=== PATIENT | female | born 1935 ===

== ENCOUNTER 2016-09-06 00:12 | Inpatient (IN) | payer MEDICARE, MEDICAID ==
[2016-09-06 00:13] VITALS: BMI 24.5
[2016-09-06] MEDS ORDERED: Iohexol 240 (50 ml) PO ONE (00:41)
--- NOTE | 2016-09-06 00:50 | ED PDOC ---
HPI: General Adult Time Seen by Provider: 09/06/16 00:30 Chief Complaint (Nursing): Hip Pain Chief Complaint (Provider): LLQ pain History Per: Patient Additional Complaint(s): pt c/o LLQ pain since last night w/ associated diarrhea. no fever, cp, sob, abd pain, n/v, constipation, urinary c/o. Past Medical History Reviewed: Historical Data, Nursing Documentation, Vital Signs Vital Signs: Last Vital Signs Temp 98.2 F 09/06/16 00:17 Pulse 94 H 09/06/16 00:17 Resp 17 09/06/16 00:17 BP 155/68 H 09/06/16 00:17 Pulse Ox 98 09/06/16 00:54 - Medical History PMH: Anxiety, HTN, Hypercholesterolemia - Surgical History Surgical History: Tonsillectomy Other surgeries: lumpectomy, hysterectomy w/ oophorectomy - Family History Family History: States: No Known Family Hx - Social History Current smoker - smoking cessation education provided: No Alcohol: None Drugs: Denies - Home Medications Home Medications: Ambulatory Orders Medication Instructions Recorded Clonazepam 0.5 mg PO BID 05/22/14 Enalapril Maleate [Vasotec] 10 mg PO DAILY 05/22/14 Ibuprofen 600 mg PO Q6H PRN 05/22/14 Letrozole 2.5 mg PO DAILY 05/22/14 Metformin ER [Glucophage XR] 500 mg PO BID 05/22/14 Aaxod-7-Mwss Ethyl Esters [OMEGA 3] 1,000 mg PO BID 05/22/14 Acetaminophen with Codeine 1 tab PO Q4 PRN 06/03/14 [Tylenol with Codeine No. 3 300 mg-30 mg] - Allergies Allergies/Adverse Reactions: Allergies Allergy/AdvReac Type Severity Reaction Status Date / Time No Known Allergies Allergy Verified 05/25/14 15:13 Review of Systems ROS Statement: Except As Marked, All Systems Reviewed And Found Negative Gastrointestinal: Positive for: Abdominal Pain, Diarrhea Physical Exam - Reviewed Nursing Documentation Reviewed: Yes - Physical Exam Appears: Positive for: Well, Non-toxic, No Acute Distress Head Exam: Positive for: ATRAUMATIC, NORMAL INSPECTION, NORMOCEPHALIC Skin: Positive for: Normal Color, Warm, DRY ENT: Positive for: Normal ENT Inspection Neck: Positive for: Normal, Painless ROM Cardiovascular/Chest: Positive for: Regular Rate, Rhythm Respiratory: Positive for: CNT, Normal Breath Sounds Gastrointestinal/Abdominal: Positive for: Normal Exam, Bowel Sounds, Soft, Tenderness (tender LLQ). Negative for: Mass, Distended, Guarding, Rebound Back: Positive for: Normal Inspection Extremity: Positive for: Normal ROM Neurologic/Psych: Positive for: Alert, Oriented - Laboratory Results Result Diagrams: 09/06/16 00:56 09/06/16 01:27 - ECG O2 Sat by Pulse Oximetry: 98 Medical Decision Making Medical Decision Making: labs resulted wnl. ct shows sigmoid diverticulitis w/ atypical circumferential wall thickening. given this is pt's first bout of diverticulitis and is diabetic w/ hx cancer, will admit for further w/u. FP resident will eval. Disposition - Clinical Impression Clinical Impression: Diverticulitis - Patient ED Disposition Is Patient to be Admitted: Yes - Disposition Referrals: Abdullahi Martinez MD [Primary Care Provider] - Disposition Time: 05:00 Condition: STABLE - Pt Status Changed To: Hospital Disposition Of: Inpatient - Admit Certification Admit to Inpatient:: After my assessment, the patient will require hospitalization for at least two midnights. This is because of the severity of symptoms shown, intensity of services needed, and/or the medical risk in this patient being treated as an outpatient.
[2016-09-06] MEDS ORDERED: Iohexol 240 (50 ml) ONE (00:56)
[2016-09-06 01:31] LABS: BASO # 0.1 K/uL (0.0-0.2); BASO % 0.7 % (0.0-2.0); EOS # 0.2 K/uL (0.0-0.7); EOS % 1.6 % (0.0-4.0); HEMATOCRIT 42.1 % (34.0-47.0); LYMPH % 20.8 % (20.0-40.0); MEAN CELL VOLUME 82.9 fl (81.0-99.0); MEAN CORPUSCULAR HEMOGLOBIN 27.4 pg (27.0-31.0); MEAN CORPUSCULAR HGB CONC 33.1 g/dL (33.0-37.0); MEAN PLATELET VOLUME 8.1 fl (7.2-11.7); MONO # 0.7 K/uL (0.0-0.8); MONO % 7.1 % (0.0-10.0); NEUT # 6.9 K/uL (1.8-7.0); NEUT % 69.8 % (50.0-75.0); RED CELL DISTRIBUTION WIDTH 14.6 % (11.5-14.5); WHITE BLOOD COUNT 9.9 K/uL (4.8-10.8)
[2016-09-06 01:53] LABS: ALB/GLOB RATIO 1.3 (1.0-2.1); ALKALINE PHOSPHATASE 79 U/L (38-126); ALT/SGPT 28 U/L (9-52); AST/SGOT 20 U/L (14-36); BILIRUBIN,TOTAL 0.4 mg/dl (0.2-1.3); BLOOD UREA NITROGEN 8 mg/dl (7-17); CALCIUM 9.3 mg/dL (8.4-10.2); CARBON DIOXIDE 23 mmol/L (22-30); CHLORIDE 99 mmol/L (98-107); GFR AFRICAN-AMERICAN > 60; GLUCOSE,RANDOM 102 mg/dL (65-105); LIPASE 124 U/L (23-300); POTASSIUM 3.9 MMOL/L (3.6-5.0); SODIUM 135 mmol/l (132-148); TOTAL PROTEIN 8.2 G/DL (6.3-8.2)
[2016-09-06 04:17] LABS: RBC URINE 3 /hpf (0-3); URINE BACTERIA RARE (<OCC); URINE BILIRUBIN NEGATIVE (NEGATIVE); URINE BLOOD SMALL (NEGATIVE); URINE COLOR YELLOW (YELLOW); URINE GLUCOSE (UA) NEG (Normal); URINE KETONE NEGATIVE (NEGATIVE); URINE LEUKOCYTE ESTERASE TRACE Leu/uL (Negative); URINE PROTEIN NEGATIVE (NEGATIVE); URINE UROBILINOGEN 0.2-1.0 mg/dL (0.2-1.0); WBC URINE 5 /hpf (0-5)
--- NOTE | 2016-09-06 04:33 | CT ---
EXAM: CT Abdomen and Pelvis With Intravenous Contrast CLINICAL HISTORY: 81 years old, female; Pain; Abdominal pain; Localized; Left lower quadrant (llq); Prior surgery; Surgery date: 6+ months; Surgery type: Hysterectomy w/oophorectomy. Hip surgery; Additional info: Llq pain, allergic to iv dyes TECHNIQUE: Axial computed tomography images of the abdomen and pelvis with intravenous contrast. This CT exam was performed using one or more of the following dose reduction techniques: automated exposure control, adjustment of the mA and/or kV according to patient size, and/or use of iterative reconstruction technique. Coronal and sagittal reformatted images were created and reviewed. EXAM DATE/TIME: 09/06/2016 12:41 AM COMPARISON: MRI ABDOMEN W/O CONT 05/17/2011 4:22:47 PM FINDINGS: The liver, spleen, kidneys, gallbladder and pancreas appear grossly normal on this non-contrast study. Colonic diverticulosis. There is a segment of wall thickening in the proximal sigmoid colon axial series 3, images 110 through 117 and coronal images 33 through 37. The segment of circumferential wall thickening measures approximately 5 cm in length. There is a round, stool filled structure extending from the thickened colon on coronal images 30 - 33 and axial images 121 - 123 that I suspect represents a markedly inflamed diverticuli. No free air. No drainable abscess collection. A normal appendix is identified coronal images 35 through 62. There are atherosclerotic changes of the aorta. Hardware right femur. IMPRESSION: Focal segment of circumferential wall thickening proximal sigmoid colon with surrounding stranding/inflammation. Numerous diverticuli are present one of which is markedly enlarged and surrounded by a large amount of stranding /soft tissue density. Findings supportive of sigmoid diverticulitis however concurrent underlying mass would be difficult to exclude especially given the marked circumferential thickening. Followup is recommended.
[2016-09-06] MEDS ORDERED: Ciprofloxacin 400mg/200ml D5W 400 MG/200 ML BAG IVPB STA (05:08)
[2016-09-06] MEDS ORDERED: Ciprofloxacin 400mg/200ml D5W 400 MG/200 ML BAG IVPB ONE (05:34)
--- NOTE | 2016-09-06 05:37 | CP.PCM.HP ---
History of Present Illness - History of Present Illness History of Present Illness: CC: LLQ Pain 81F p/w worsening LLQ pain since Friday but unable to qualify pain character or temporal presence, but denies it is constant, denies association with fevers , chills, obstipation, constipation, BMs. She reports she has actually been having non-bloody diarrhea, 3x/day for approximately 1.5 wks. Although she has had antibiotics for the right hip repair it is most c/w her continuing to take dulcolax. Currently she denies any SOB, chest pain, palpitations, N/V, weight loss, loss of appetite, and states her last colonoscopy was over 10 years ago. PMH: Endometrial ca, RIGHT breast ca, DM, TB PSH: Rt Hip Repair 08/20/16, Back surgery, ALPHONSE/BSO, Rt ankle, Rt lumpectomy w/ radiation Smokes: Yes ED COURSE VSS: 36.8- 94- 155/68- 17- 98% CBC: wnl CMP: wnl UA: LE-trace, Blood-pos CT abd/pelvis: diverticulitis with 5cm circumferential wall thickening Morphine x2 Cipro x1 Flagyl x1 Present on Admission - Present on Admission Any Indicators Present on Admission: No Review of Systems - Gastrointestinal Gastrointestinal: Abdominal Pain (LLQ), Diarrhea Past Patient History - Past Medical History & Family History Past Medical History?: Yes - Past Social History Alcohol: None Drugs: Denies - CARDIAC Hx Hypercholesterolemia: Yes Hx Hypertension: Yes - PULMONARY Other/Comment: removal of mass from the lungs - ENDOCRINE/METABOLIC Hx Endocrine Disorders: Yes (DM) Hx Diabetes Mellitus Type 1: Yes Hx Diabetes Mellitus Type 2: Yes - HEMATOLOGICAL/ONCOLOGICAL Hx Cancer: Yes (right breast) - MUSCULOSKELETAL/RHEUMATOLOGICAL Hx Falls: Yes (recent fall) - GENITOURINARY/GYNECOLOGICAL Other/Comment: hysterectomy - PSYCHIATRIC Hx Anxiety: Yes - SURGICAL HISTORY Hx Tonsillectomy: Yes - ANESTHESIA Hx Anesthesia: Yes Hx Anesthesia Reactions: No Meds Home Medications: Home Medication List Medication Instructions Recorded Confirmed Type Clonazepam [Klonopin] 0.5 mg PO HS #30 tablet 09/06/16 Rx Allergies/Adverse Reactions: Allergies Allergy/AdvReac Type Severity Reaction Status Date / Time No Known Allergies Allergy Verified 05/25/14 15:13 Physical Exam - Constitutional Appears: Well, Non-toxic, No Acute Distress - Head Exam Head Exam: ATRAUMATIC, NORMAL INSPECTION - Eye Exam Eye Exam: EOMI, Normal appearance - ENT Exam ENT Exam: Mucous Membranes Moist, Normal Exam - Neck Exam Neck exam: Positive for: Full Rom (scar at base but pt does not recall what surgery was for). Negative for: Lymphadenopathy - Respiratory Exam Respiratory Exam: Clear to Auscultation Bilateral, NORMAL BREATHING PATTERN. absent: Rales, Rhonchi, Wheezes - Cardiovascular Exam Cardiovascular Exam: REGULAR RHYTHM. absent: JVD - GI/Abdominal Exam GI & Abdominal Exam: Normal Bowel Sounds, Soft, Tenderness (LLQ). absent: Distended, Guarding, Hernia - Extremities Exam Extremities exam: Positive for: full ROM, normal capillary refill, pedal pulses present. Negative for: calf tenderness, pedal edema - Neurological Exam Neurological exam: Alert, Oriented x3 - Psychiatric Exam Psychiatric exam: Normal Affect, Normal Mood - Skin Skin Exam: Normal Color, Warm Results - Vital Signs Recent Vital Signs: Last Vital Signs Temp 36.8 C 09/06/16 00:17 Pulse 94 H 09/06/16 00:17 Resp 17 09/06/16 00:17 BP 155/68 H 09/06/16 00:17 Pulse Ox 98 09/06/16 05:00 - Labs Result Diagrams: 09/06/16 00:56 09/06/16 01:27 Labs: Laboratory Results - last 24 hr 09/06/16 09/06/16 09/06/16 00:48 00:56 01:27 WBC 9.9 D RBC 5.07 Hgb 13.9 Hct 42.1 MCV 82.9 MCH 27.4 MCHC 33.1 RDW 14.6 H Plt Count 267 MPV 8.1 Neut % (Auto) 69.8 Lymph % (Auto) 20.8 Hayes % (Auto) 7.1 Eos % (Auto) 1.6 Baso % (Auto) 0.7 Neut # 6.9 Lymph # 2.0 Hayes # 0.7 Eos # 0.2 Baso # 0.1 Sodium 135 Potassium 3.9 Chloride 99 Carbon Dioxide 23 Anion Gap 17 BUN 8 Creatinine 0.4 L Est GFR ( Amer) > 60 Est GFR (Non-Af Amer) > 60 POC Glucose (mg/dL) 89 Random Glucose 102 Calcium 9.3 Total Bilirubin 0.4 AST 20 ALT 28 Alkaline Phosphatase 79 Total Protein 8.2 Albumin 4.6 Globulin 3.6 Albumin/Globulin Ratio 1.3 Lipase 124 Urine Color Urine Clarity Urine pH Ur Specific [place] Urine Protein Urine Glucose (UA) Urine Ketones Urine Blood Urine Nitrate Urine Bilirubin Urine Urobilinogen Ur Leukocyte Esterase Urine RBC (Auto) Urine Microscopic WBC Ur Squamous Epith Cells Urine Bacteria 09/06/16 03:33 WBC RBC Hgb Hct MCV MCH MCHC RDW Plt Count MPV Neut % (Auto) Lymph % (Auto) Hayes % (Auto) Eos % (Auto) Baso % (Auto) Neut # Lymph # Hayes # Eos # Baso # Sodium Potassium Chloride Carbon Dioxide Anion Gap BUN Creatinine Est GFR ( Amer) Est GFR (Non-Af Amer) POC Glucose (mg/dL) Random Glucose Calcium Total Bilirubin AST ALT Alkaline Phosphatase Total Protein Albumin Globulin Albumin/Globulin Ratio Lipase Urine Color Yellow Urine Clarity Clear Urine pH 6.0 Ur Specific [place] 1.010 Urine Protein Negative Urine Glucose (UA) Neg Urine Ketones Negative Urine Blood Small Urine Nitrate Negative Urine Bilirubin Negative Urine Urobilinogen 0.2-1.0 Ur Leukocyte Esterase Trace Urine RBC (Auto) 3 Urine Microscopic WBC 5 Ur Squamous Epith Cells 1 Urine Bacteria Rare Assessment & Plan (1) Diverticulitis Assessment and Plan: Acute diverticulitis with associated circumferential wall thickening that will require further evaluation after acute inflammation has resolved. - NPO except meds, IVF - Cipro/Flagyl - GI Consult (Dr Newsome) Status: Acute (2) DVT prophylaxis Assessment and Plan: Has been on daily Lovenox injections s/p Hip repair but does not know concentration. Patient will confirm with home nursing and in the interim be started on 40mg, SC, Daily Status: Acute (3) History of hip fracture Assessment and Plan: Right Hip Repair 08/20, discharged 08/25, f/u appointment Dr Awan 09/20 for suture removal. Using a walker at home. - Physical Therapy - c/w Lovenox injections Status: Acute (4) Diabetes mellitus Assessment and Plan: Chronic, controlled, c/w home medications - Accu-checks - c/w Metformin - Hypoglycemia Bundle Status: Chronic Priority: High
[2016-09-06] MEDS ORDERED: Dextrose 50% SYRINGE Inj (50 ml) IV PRN (06:03)
[2016-09-06] MEDS ORDERED: Glucagon Recombinant 1 mg Inj IM PRN (06:03)
[2016-09-06] MEDS: Potassium Ch 20mEq in D5-1/2NS 1,000 ML IV SCH ×3 (07:15→22:13)
[2016-09-06] MEDS ORDERED: Ciprofloxacin 400mg/200ml D5W 400 MG/200 ML BAG IVPB SCH (09:00)
[2016-09-06] MEDS: metroNIDAZOLE 500mg/100ml NS 100 ML IVPB SCH ×2 (09:20→20:44)
[2016-09-06] MEDS: Enoxaparin 40 mg Syringe SC SCH (10:29)
--- NOTE | 2016-09-06 13:18 | RAD ---
PROCEDURE: Right Hip Radiographs. HISTORY: recent surgery s/p fall COMPARISON: None. FINDINGS: BONES: Status post ORIF right hip. Two compression screws traverse the femoral neck and head. Anatomic alignment. No dislocation. JOINTS: Normal. SOFT TISSUES: Normal. OTHER FINDINGS: None. IMPRESSION: Status post ORIF right hip fracture. Anatomic alignment.
--- NOTE | 2016-09-06 15:19 | CON ---
DATE: 09/06/2016 REFERRING PHYSICIAN: Dr. Chatman REASON FOR CONSULTATION: Abdominal pain. This is a pleasant 81-year-old female with worsening left lower quadrant pain over the past ____ hour s with no diarrhea, no fever, no chills. The patient says the pain is improving now. She had been a ntibiotics for the hip repair, but still feels constipated. Currently lying in bed, comfortable, no apparent distress. PAST MEDICAL HISTORY: Endometrial CA, right breast CA, diabetes, ____, tuberculosis. PAST SURGICAL HISTORY: Hip repair last month, back surgery, ALPHONSE-BSO, right ankle ____ with radiation . All other systems have been reviewed and negative except those positives in the HPI. PHYSICAL EXAMINATION: VITAL SIGNS: Here in the hospital are grossly unremarkable. GENERAL: A pleasant elderly-appearing female, lying in bed, comfortable, in no apparent distress. HEAD: Normocephalic, atraumatic. EYES: Pupils equally reactive to light bilaterally. No conjunctival pallor or icterus. NECK: Supple with normal range of motion. No lymphadenopathy appreciated. LUNGS: Coarse breath sounds bilaterally. HEART: S1, S2. Regular rate and rhythm. No murmurs appreciated. ABDOMEN: Soft, discomfort in the left lower quadrant. No rebound, no guarding. RECTAL: Deferred. EXTREMITIES: Pulses present bilaterally. SKIN: Warm, dry, intact. NEUROLOGIC: Alert, oriented x 3. LABORATORIES: Have been reviewed. WBC is 9.9. CAT scan shows a diverticulitis in the left lower qu adrant ____ thickening ____ concerning for neoplasm. ASSESSMENT AND PLAN: This is a 81-year-old female with diverticulitis. The patient's last colonosco py was a very long time ago and she cannot remember when it was. As far as the current episode, woul d definitely treat with antibiotics for a total of 10-14 days. Will need a colonoscopy. The issue i s that for ____ diverticulitis, we will wait 6-8 weeks for infection to resolve. However, given the CAT scan findings, will likely need to perform procedure sooner rather than later for fear that this may be underlying neoplastic process. One other option is to repeat CT in the outpatient setting in 3-4 weeks and if the inflammation is resolved, can make the decision based on that. At this point, claire barroso keep n.p.o. ____ ice chips until pain improving. Once pain is improving, can start liquid diet as tolerated. Thank you for the consult. Feliciano Newsome MD, PhD cc:Preeti Chatman MD [id number] TT: 09/06/2016 15:18:30 Confirmation # [id number] Dictation # [id number]
[2016-09-06] MEDS: RESTASIS 0.05% OU SCH (22:13)
[2016-09-06] MEDS: Ciprofloxacin 400mg/200ml D5W 400 MG/200 ML BAG IVPB SCH (23:02)
[2016-09-07] MEDS: Potassium Ch 20mEq in D5-1/2NS 1,000 ML IV SCH (00:12)
[2016-09-07] MEDS: metroNIDAZOLE 500mg/100ml NS 100 ML IVPB SCH ×4 (04:45→21:05)
[2016-09-07 08:59] VITALS: RESP 20
[2016-09-07] MEDS: Enoxaparin 40 mg Syringe SC SCH (09:00)
[2016-09-07] MEDS: RESTASIS 0.05% OU SCH ×2 (09:01→17:13)
[2016-09-07] MEDS: Ciprofloxacin 400mg/200ml D5W 400 MG/200 ML BAG IVPB SCH ×2 (11:46→22:14)
--- NOTE | 2016-09-07 14:42 | CP.PCM.PN ---
Addendum entered and electronically signed by Rafael Loving MD 09/07/16 14: 50: Patient has [employer] M-F for 18 hrs, will need to be resumed upon discharge, as well as physical therapy, social work consult. Original Note: Subjective - Date & Time of Evaluation Date of Evaluation: 09/07/16 Time of Evaluation: 08:15 - Subjective Subjective: No acute events overnight. Patient seen and examined bedside. Pain is improved, no nausea vomiting or diarrhea. She is hungry and would like to eat.She is able to ambulate with walker to bathroom. She is getting physical therapy. Denies headache, chest pain, dyspnea, pedal edema. Objective - Vital Signs/Intake and Output Vital Signs (last 24 hours): Temp Pulse Resp BP Pulse Ox 98.1 F 95 H 20 120/71 93 L 09/07/16 08:58 09/07/16 08:58 09/07/16 08:58 09/07/16 08:58 09/07/16 08:58 - Medications Medications: Current Medications Clonazepam (Klonopin) 0.5 mg PO HS [facility] Last Admin: 09/06/16 22:13 Dose: 0.5 mg Dextrose (Dextrose 50% Inj) 0 ml IV STAT PRN; Protocol PRN Reason: Hyglycemia Protocol Dextrose (Glutose 15) 0 gm PO ONCE PRN; Protocol PRN Reason: Hypoglycemia Protocol Enalapril Maleate (Vasotec) 10 mg PO DAILY [facility] Last Admin: 09/07/16 09:01 Dose: 10 mg Enoxaparin Sodium (Lovenox) 40 mg SC DAILY [facility] PRN Reason: Protocol Last Admin: 09/07/16 09:00 Dose: 40 mg Glucagon (Glucagen Diagnostic Kit) 0 mg IM STAT PRN; Protocol PRN Reason: Hypoglycemia Protocol Home Med (Patient's Own Medication) 1 unit OU BID [facility] Last Admin: 09/07/16 09:01 Dose: 1 unit Metronidazole (Flagyl 500mg/100ml Ns) 100 mls @ 100 mls/hr IVPB ONCE [facility] Ciprofloxacin (Cipro 400mg/200ml Dsw) 400 mg in 200 mls @ 200 mls/hr IVPB Q12 [facility] Last Admin: 09/07/16 11:46 Dose: 200 mls/hr Metronidazole (Flagyl 500mg/100ml Ns) 100 mls @ 100 mls/hr IVPB Q8@0500,1300, 2100 [facility] Last Admin: 09/07/16 14:00 Dose: 100 mls/hr Metformin HCl (Glucophage) 500 mg PO BIDWM [facility] Last Admin: 09/07/16 09:01 Dose: 500 mg - Constitutional Appears: Well, No Acute Distress - Head Exam Head Exam: NORMAL INSPECTION - Eye Exam Eye Exam: EOMI, Normal appearance - ENT Exam ENT Exam: Mucous Membranes Moist - Respiratory Exam Respiratory Exam: Clear to Ausculation Bilateral, NORMAL BREATHING PATTERN - Cardiovascular Exam Cardiovascular Exam: REGULAR RHYTHM, +S1, +S2 - GI/Abdominal Exam GI & Abdominal Exam: Soft, Normal Bowel Sounds. absent: Tenderness - Neurological Exam Neurological Exam: Alert, Awake, CN II-XII Intact, Oriented x3 - Psychiatric Exam Psychiatric exam: Normal Affect, Normal Mood - Skin Skin Exam: Dry, Intact, Normal Color Assessment and Plan - Assessment and Plan (Free Text) Assessment: 81 year old with hx of ORIF right hip admitted for acute diverticulitis. Patient condition improved, continue antibiotics and start liquid diet as patient is feeling better. Continue with physical therapy. (1) Diverticulitis Assessment and Plan: Acute diverticulitis with associated circumferential wall thickening that will require further evaluation after acute inflammation has resolved. - Start full liquid diet, will advance as tolerated. - Cipro/Flagyl - GI Consult (Dr Newsome): continue with antibiotics for 10-14 days. follow up outpatient. (2) DVT prophylaxis Assessment and Plan: Has been on daily Lovenox injections s/p Hip repair Lovenox 40mg, SC, Daily (3) History of hip fracture Assessment and Plan: Right Hip Repair 08/20, discharged 08/25. Sutures removed 09/06/16 - Using a walker at home. - Physical Therapy - c/w Lovenox injections (4) Diabetes mellitus Assessment and Plan: Chronic, controlled - Accu-checks -Metformin held due to NPO status, continue for now - Hypoglycemia Bundle
[2016-09-08] MEDS: metroNIDAZOLE 500mg/100ml NS 100 ML IVPB SCH ×4 (05:10→20:30)
--- NOTE | 2016-09-08 09:38 | CP.PCM.PN ---
Subjective - Date & Time of Evaluation Date of Evaluation: 09/08/16 Time of Evaluation: 08:00 - Subjective Subjective: Patient was seen and examined at bedside this morning. Patient appears good spirit and happy she could able to eat regular food this morning. Patient stated her LLQ pain is resolved now. Patient denies fever, chills, SOB, chest pain, N/V/D, headache and dizziness. Objective - Vital Signs/Intake and Output Vital Signs (last 24 hours): Temp Pulse Resp BP Pulse Ox 97.9 F 65 20 118/71 97 09/08/16 08:19 09/08/16 08:19 09/08/16 08:19 09/08/16 08:19 09/08/16 08:19 - Medications Medications: Current Medications Clonazepam (Klonopin) 0.5 mg PO HS [facility] Last Admin: 09/07/16 22:08 Dose: 0.5 mg Dextrose (Dextrose 50% Inj) 0 ml IV STAT PRN; Protocol PRN Reason: Hyglycemia Protocol Dextrose (Glutose 15) 0 gm PO ONCE PRN; Protocol PRN Reason: Hypoglycemia Protocol Enalapril Maleate (Vasotec) 10 mg PO DAILY [facility] Last Admin: 09/07/16 09:01 Dose: 10 mg Enoxaparin Sodium (Lovenox) 40 mg SC DAILY NIRAV PRN Reason: Protocol Last Admin: 09/07/16 09:00 Dose: 40 mg Glucagon (Glucagen Diagnostic Kit) 0 mg IM STAT PRN; Protocol PRN Reason: Hypoglycemia Protocol Home Med (Patient's Own Medication) 1 unit OU BID [facility] Last Admin: 09/07/16 17:13 Dose: 1 unit Metronidazole (Flagyl 500mg/100ml Ns) 100 mls @ 100 mls/hr IVPB ONCE [facility] Ciprofloxacin (Cipro 400mg/200ml Dsw) 400 mg in 200 mls @ 200 mls/hr IVPB Q12 [facility] Last Admin: 09/07/16 22:14 Dose: 200 mls/hr Metronidazole (Flagyl 500mg/100ml Ns) 100 mls @ 100 mls/hr IVPB Q8@0500,1300, 2100 [facility] Last Admin: 09/08/16 05:16 Dose: 100 mls/hr Metformin HCl (Glucophage) 500 mg PO BIDWM [facility] Last Admin: 09/07/16 17:12 Dose: 500 mg - Constitutional Appears: Well, Non-toxic, No Acute Distress - Head Exam Head Exam: NORMAL INSPECTION, NORMOCEPHALIC - Eye Exam Eye Exam: EOMI, Normal appearance, PERRL Pupil Exam: NORMAL ACCOMODATION, PERRL - ENT Exam ENT Exam: Mucous Membranes Moist - Neck Exam Neck Exam: Full ROM, Normal Inspection - Respiratory Exam Respiratory Exam: Clear to Ausculation Bilateral, NORMAL BREATHING PATTERN - Cardiovascular Exam Cardiovascular Exam: REGULAR RHYTHM, RRR, +S1, +S2 - GI/Abdominal Exam GI & Abdominal Exam: Soft, Normal Bowel Sounds. absent: Distended, Firm, Rigid , Tenderness - Extremities Exam Extremities Exam: Full ROM, Normal Capillary Refill, Normal Inspection - Back Exam Back Exam: Full ROM, NORMAL INSPECTION - Neurological Exam Neurological Exam: Alert, CN II-XII Intact, Normal Gait, Oriented x3 - Psychiatric Exam Psychiatric exam: Normal Affect, Normal Mood - Skin Skin Exam: Dry, Intact, Normal Color, Warm Assessment and Plan - Assessment and Plan (Free Text) Assessment: 81 year old with hx of ORIF right hip admitted for acute diverticulitis. Patient condition improved, continue antibiotics and tolerating diet well. Plan: (1) Diverticulitis -improved -CT of abdomen showed Acute diverticulitis with associated circumferential wall thickening that will require further evaluation after acute inflammation has resolved. - continue with Cipro/Flagyl - GI Consult (Dr Newsome): continue with antibiotics for 10-14 days. follow up outpatient. (2) History of hip fracture -Right Hip Repair 08/20, discharged 08/25. Sutures removed 09/06/16 - Using a walker at home. - Physical Therapy - c/w Lovenox injections (4) Diabetes mellitus -Chronic, controlled -Accu-checks -Metformin held due to NPO status, continue for now - Hypoglycemia Bundle (2) DVT prophylaxis -Lovenox injections s/p Hip repair -Lovenox 40mg, SC, Daily
[2016-09-08] MEDS: Enoxaparin 40 mg Syringe SC SCH (10:12)
[2016-09-08] MEDS: RESTASIS 0.05% OU SCH (10:12)
[2016-09-08] MEDS: Ciprofloxacin 400mg/200ml D5W 400 MG/200 ML BAG IVPB SCH ×2 (10:13→21:30)
[2016-09-09] MEDS: metroNIDAZOLE 500mg/100ml NS 100 ML IVPB SCH (04:56)
[2016-09-09 07:35] VITALS: BP 109/61; PULSE 64; TEMP 97.8; O2SAT 95
[2016-09-09] MEDS: Ciprofloxacin 400mg/200ml D5W 400 MG/200 ML BAG IVPB SCH (09:26)
[2016-09-09] MEDS: Enoxaparin 40 mg Syringe SC SCH (09:28)
--- NOTE | 2016-09-09 11:48 | CP.PCM.PN ---
Subjective - Date & Time of Evaluation Date of Evaluation: 09/09/16 Time of Evaluation: 08:20 - Subjective Subjective: No acute events overnight. Patient seen and examined bedside. Pain is resolved. Patient is tolerating diet. No complaints at time of visit. Condition improved. Objective - Vital Signs/Intake and Output Vital Signs (last 24 hours): Temp Pulse Resp BP Pulse Ox 97.8 F 64 20 109/61 95 09/09/16 07:34 09/09/16 07:34 09/09/16 07:34 09/09/16 07:34 09/09/16 07:34 - Medications Medications: Current Medications Clonazepam (Klonopin) 0.5 mg PO HS [facility] Last Admin: 09/08/16 22:00 Dose: 0.5 mg Dextrose (Dextrose 50% Inj) 0 ml IV STAT PRN; Protocol PRN Reason: Hyglycemia Protocol Dextrose (Glutose 15) 0 gm PO ONCE PRN; Protocol PRN Reason: Hypoglycemia Protocol Enalapril Maleate (Vasotec) 10 mg PO DAILY [facility] Last Admin: 09/09/16 09:28 Dose: 10 mg Enoxaparin Sodium (Lovenox) 40 mg SC DAILY NIRAV PRN Reason: Protocol Last Admin: 09/09/16 09:28 Dose: 40 mg Glucagon (Glucagen Diagnostic Kit) 0 mg IM STAT PRN; Protocol PRN Reason: Hypoglycemia Protocol Metronidazole (Flagyl 500mg/100ml Ns) 100 mls @ 100 mls/hr IVPB ONCE [facility] Ciprofloxacin (Cipro 400mg/200ml Dsw) 400 mg in 200 mls @ 200 mls/hr IVPB Q12 [facility] Last Admin: 09/09/16 09:26 Dose: 200 mls/hr Metronidazole (Flagyl 500mg/100ml Ns) 100 mls @ 100 mls/hr IVPB Q8@0500,1300, 2100 [facility] Last Admin: 09/09/16 04:56 Dose: 100 mls/hr Metformin HCl (Glucophage) 500 mg PO BIDWM [facility] Last Admin: 09/09/16 09:28 Dose: 500 mg - Constitutional Appears: Well, Non-toxic, No Acute Distress - Head Exam Head Exam: NORMAL INSPECTION - Eye Exam Eye Exam: Normal appearance - ENT Exam ENT Exam: Mucous Membranes Moist - Neck Exam Neck Exam: Normal Inspection - Respiratory Exam Respiratory Exam: Clear to Ausculation Bilateral, NORMAL BREATHING PATTERN - Cardiovascular Exam Cardiovascular Exam: REGULAR RHYTHM, +S1, +S2 - GI/Abdominal Exam GI & Abdominal Exam: Soft, Normal Bowel Sounds. absent: Tenderness - Neurological Exam Neurological Exam: Alert, Awake, CN II-XII Intact, Oriented x3 Additional comments: uses walker for ambulation - Psychiatric Exam Psychiatric exam: Normal Affect, Normal Mood - Skin Skin Exam: Dry, Intact Assessment and Plan - Assessment and Plan (Free Text) Assessment: 81 year old with hx of ORIF right hip admitted for acute diverticulitis. Patient condition improved, continue antibiotics and tolerating diet. Plan: (1) Diverticulitis -improved -discharge on Cipro/Flagyl PO for 7 days to complete 10 days. -Patient to follow up with Dr. García as outpatient. (2) History of hip fracture -Right Hip Repair 08/20, discharged 08/25. Sutures removed 09/06/16 - Using a walker at home. - Physical Therapy - c/w Lovenox injections (4) Diabetes mellitus -Chronic, controlled -Accu-checks -Metformin held due to NPO status, continue for now - Hypoglycemia Bundle (2) DVT prophylaxis -Lovenox injections s/p Hip repair -Lovenox 40mg, SC, Daily
--- NOTE | 2016-09-09 16:52 | CP.PCM.DIS ---
Provider - Provider Date of Admission: 09/06/16 05:18 Attending physician: Preeti Chatman MD Primary care physician: Abdullahi Martinez MD Consults: GI Time Spent in preparation of Discharge (in minutes): 30 Diagnosis - Discharge Diagnosis (1) Diverticulitis Status: Acute Priority: High Hospital Course - Lab Results Lab Results: Most Recent Lab Values WBC 9.9 K/uL (4.8-10.8) D 09/06/16 00:56 RBC 5.07 Mil/uL (3.80-5.20) 09/06/16 00:56 Hgb 13.9 g/dL (12.0-16.0) 09/06/16 00:56 Hct 42.1 % (34.0-47.0) 09/06/16 00:56 MCV 82.9 fl (81.0-99.0) 09/06/16 00:56 MCH 27.4 pg (27.0-31.0) 09/06/16 00:56 MCHC 33.1 g/dL (33.0-37.0) 09/06/16 00:56 RDW 14.6 % (11.5-14.5) H 09/06/16 00:56 Plt Count 267 K/uL (130-400) 09/06/16 00:56 MPV 8.1 fl (7.2-11.7) 09/06/16 00:56 Neut % (Auto) 69.8 % (50.0-75.0) 09/06/16 00:56 Lymph % (Auto) 20.8 % (20.0-40.0) 09/06/16 00:56 [place] % (Auto) 7.1 % (0.0-10.0) 09/06/16 00:56 Eos % (Auto) 1.6 % (0.0-4.0) 09/06/16 00:56 Baso % (Auto) 0.7 % (0.0-2.0) 09/06/16 00:56 Neut # 6.9 K/uL (1.8-7.0) 09/06/16 00:56 Lymph # 2.0 K/uL (1.0-4.3) 09/06/16 00:56 [place] # 0.7 K/uL (0.0-0.8) 09/06/16 00:56 Eos # 0.2 K/uL (0.0-0.7) 09/06/16 00:56 Baso # 0.1 K/uL (0.0-0.2) 09/06/16 00:56 Sodium 135 mmol/l (132-148) 09/06/16 01:27 Potassium 3.9 MMOL/L (3.6-5.0) 09/06/16 01:27 Chloride 99 mmol/L (98-107) 09/06/16 01:27 Carbon Dioxide 23 mmol/L (22-30) 09/06/16 01:27 Anion Gap 17 (10-20) 09/06/16 01:27 BUN 8 mg/dl (7-17) 09/06/16 01:27 Creatinine 0.4 mg/dL (0.7-1.2) L 09/06/16 01:27 Est GFR ( Amer) > 60 09/06/16 01:27 Est GFR (Non-Af Amer) > 60 09/06/16 01:27 POC Glucose (mg/dL) 156 mg/dL (65-110) H 09/09/16 10:49 Random Glucose 102 mg/dL (65-105) 09/06/16 01:27 Hemoglobin A1c 5.8 % (4.2-6.5) 09/08/16 06:45 Calcium 9.3 mg/dL (8.4-10.2) 09/06/16 01:27 Total Bilirubin 0.4 mg/dl (0.2-1.3) 09/06/16 01:27 AST 20 U/L (14-36) 09/06/16 01:27 ALT 28 U/L (9-52) 09/06/16 01:27 Alkaline Phosphatase 79 U/L (38-126) 09/06/16 01:27 Total Protein 8.2 G/DL (6.3-8.2) 09/06/16 01:27 Albumin 4.6 g/dL (3.5-5.0) 09/06/16 01:27 Globulin 3.6 gm/dL (2.2-3.9) 09/06/16 01:27 Albumin/Globulin Ratio 1.3 (1.0-2.1) 09/06/16 01:27 Lipase 124 U/L (23-300) 09/06/16 01:27 Urine Color Yellow (YELLOW) 09/06/16 03:33 Urine Clarity Clear (Clear) 09/06/16 03:33 Urine pH 6.0 (5.0-8.0) 09/06/16 03:33 Ur Specific [place] 1.010 (1.003-1.030) 09/06/16 03:33 Urine Protein Negative mg/dL (NEGATIVE) 09/06/16 03:33 Urine Glucose (UA) Neg mg/dL (Normal) 09/06/16 03:33 Urine Ketones Negative mg/dL (NEGATIVE) 09/06/16 03:33 Urine Blood Small (NEGATIVE) 09/06/16 03:33 Urine Nitrate Negative (NEGATIVE) 09/06/16 03:33 Urine Bilirubin Negative (NEGATIVE) 09/06/16 03:33 Urine Urobilinogen 0.2-1.0 mg/dL (0.2-1.0) 09/06/16 03:33 Ur Leukocyte Esterase Trace Dionicio/uL (Negative) 09/06/16 03:33 Urine RBC (Auto) 3 /hpf (0-3) 09/06/16 03:33 Urine Microscopic WBC 5 /hpf (0-5) 09/06/16 03:33 Ur Squamous Epith Cells 1 /hpf (0-5) 09/06/16 03:33 Urine Bacteria Rare (<OCC) 09/06/16 03:33 - Hospital Course Hospital Course: 81 year old female with PMH of DM, endometrial CA, breast CA, TB, carcinoid, s/ p ORIF on August 20, 2016 admitted and treated for diverticulitis. Patient received 3 days IV antibiotics, pain resolved and tolerating regular diet. Dr. García (GI), saw and evaluated the patient- recommended PO antibiotics, follow up as outpatient for colonoscopy or repeat CT. PT recommends home with services. She is ambulating with walker. OFFICE SERVICES COORDINATOR come M-F, 18 hrs. Patient is stable for discharge. Follow up at [facility] in 1 week. Discharge Exam - Head Exam Head Exam: NORMAL INSPECTION - Eye Exam Eye Exam: Normal appearance - ENT Exam ENT Exam: Mucous Membranes Moist - Respiratory Exam Respiratory Exam: NORMAL BREATHING PATTERN - Cardiovascular Exam Cardiovascular Exam: REGULAR RHYTHM - GI/Abdominal Exam GI & Abdominal Exam: Unremarkable - Neurological Exam Neurological exam: Alert, CN II-XII Intact, Oriented x3 Additional comments: ambulating with walker - Psychiatric Exam Psychiatric exam: Normal Affect, Normal Mood - Skin Skin Exam: Dry, Intact, Normal Color Discharge Plan - Discharge Medications Prescriptions: Ciprofloxacin [Cipro] 500 mg PO BID #14 tab metroNIDAZOLE [Flagyl] 500 mg PO Q8 #21 tab - Follow Up Plan Condition: STABLE Disposition: HOME/ ROUTINE Instructions: Diverticulitis (DC), Diverticulitis Diet (DC) Additional Instructions: follow up with private MD Referrals: Abdullahi Martinez MD [Primary Care Provider] -
== END 2016-09-09 14:00 | disposition home or self-care (01) | DRG 392 ==
LOC: H.ER 00:12 → H.ERHOLD 05:18 → H.MEDSURG1 13:26
PROVIDERS: ADMIT Family Medicine Geriatric Medicine; ATTEND Family Medicine Geriatric Medicine
DX: K57.92 Diverticulitis of intestine, part unspecified, without perforation or abscess without bleeding (principal); E11.9 Type 2 diabetes mellitus without complications; I10 Essential (primary) hypertension; Z85.3 Personal history of malignant neoplasm of breast; Z85.42 Personal history of malignant neoplasm of other parts of uterus; E78.00 Pure hypercholesterolemia, unspecified; F41.9 Anxiety disorder, unspecified; Z86.11 Personal history of tuberculosis

== ENCOUNTER 2017-09-06 16:13 | Inpatient (IN) | payer MEDICARE, MEDICAID ==
[2017-09-06 16:16] VITALS: BMI 21.9
--- NOTE | 2017-09-06 16:37 | ED PDOC ---
Lower Extremity Pain/Injury Time Seen by Provider: 09/06/17 16:20 Chief Complaint (Nursing): Lower Extremity Problem/Injury Chief Complaint (Provider): Hip Injury History Per: Patient, Family History/Exam Limitations: no limitations Onset/Duration Of Symptoms: Mins (thirty), Sudden Onset Current Symptoms Are (Timing): Still Present Severity: Moderate - Hip Description Of Injury: Fell, Tripped Currently Unable To: Bear Weight, Bend Or Move Past Medical History Reviewed: Historical Data, Nursing Documentation, Vital Signs Vital Signs: Last Vital Signs Temp 98.6 F 09/06/17 16:16 Pulse 97 H 09/06/17 16:16 Resp 17 09/06/17 16:16 BP 145/77 09/06/17 16:16 Pulse Ox 96 09/06/17 16:16 - Medical History PMH: Anxiety, Fractures, HTN, Hypercholesterolemia Denies: Chronic Kidney Disease - Surgical History Surgical History: Tonsillectomy - Family History Family History: States: Unknown Family Hx - Home Medications Home Medications: Ambulatory Orders Medication Instructions Recorded Enalapril Maleate [Vasotec] 10 mg PO DAILY 05/22/14 MetFORMIN ER [Glucophage XR] 500 mg PO BID 05/22/14 clonazePAM [Klonopin] 1.5 mg PO DAILY 09/06/17 - Allergies Allergies/Adverse Reactions: Allergies Allergy/AdvReac Type Severity Reaction Status Date / Time No Known Allergies Allergy Verified 05/25/14 15:13 Review of Systems ROS Statement: Except As Marked, All Systems Reviewed And Found Negative Musculoskeletal: Positive for: Leg Pain, Other ((Left) Hip Pain) - Laboratory Results Result Diagrams: 09/06/17 18:39 - ECG O2 Sat by Pulse Oximetry: 96 Medical Decision Making Medical Decision Making: R/O Hip Fx or Dislocation Hip and Pelvis Plan Film FINDINGS: BONES: Pelvis: Unremarkable. Right hip:Patient again status post internal fixation by 2 screws through the right femoral neck Left hip:There is a mildly displaced subcapital fracture at the left femoral neck noted. JOINTS: Right hip: No evidence of dislocation. Vdwz-eh-cgexoniv degenerative changes Left hip: No evidence of dislocation. Yhft-qg-qtdhkxiy degenerative changes Sacroiliac Joints: Unremarkable. Pubic symphysis: Unremarkable. SOFT TISSUES: Mild soft tissue swelling noted. OTHER FINDINGS: None. IMPRESSION: Acute mildly displaced left femoral neck subcapital fracture noted. Disposition - Clinical Impression Clinical Impression: Subcapital fracture of left femur - Patient ED Disposition Is Patient to be Admitted: Yes Discussed With : Rigoberto Jerome (admit to [facility] consult to him) Doctor Will See Patient In The: Hospital Counseled Patient/Family Regarding: Diagnosis, Smoking Cessation - Disposition Disposition Time: 19:15 Condition: STABLE Instructions: Hip Fracture Forms: [facility] ([place]) - Pt Status Changed To: Hospital Disposition Of: Inpatient - Admit Certification Admit to Inpatient:: After my assessment, the patient will require hospitalization for at least two midnights. This is because of the severity of symptoms shown, intensity of services needed, and/or the medical risk in this patient being treated as an outpatient.
[2017-09-06] MEDS ORDERED: Morphine 4 MG/ML VIAL ONE ×2 (16:56→21:03)
[2017-09-06] MEDS: Morphine 4 MG/ML VIAL IVP ONE ×2 (17:11→21:09)
--- NOTE | 2017-09-06 17:48 | RAD ---
PROCEDURE: Radiographs of the pelvis and bilateral hips HISTORY: r/o fx COMPARISON: Comparison is made to the previous study dated 09/06/2016 FINDINGS: BONES: Pelvis: Unremarkable. Right hip:Patient again status post internal fixation by 2 screws through the right femoral neck Left hip:There is a mildly displaced subcapital fracture at the left femoral neck noted. JOINTS: Right hip: No evidence of dislocation. Xyyi-mq-zqdcntfy degenerative changes Left hip: No evidence of dislocation. Vnsh-ic-hwteayyq degenerative changes Sacroiliac Joints: Unremarkable. Pubic symphysis: Unremarkable. SOFT TISSUES: Mild soft tissue swelling noted. OTHER FINDINGS: None. IMPRESSION: Acute mildly displaced left femoral neck subcapital fracture noted.
[2017-09-06 18:45] LABS: BASO # 0.1 K/uL (0.0-0.2); BASO % 0.6 % (0.0-2.0); EOS # 0.2 K/uL (0.0-0.7); HEMOGLOBIN 14.3 g/dL (12.0-16.0); LYMPH # 1.9 K/uL (1.0-4.3); MEAN CELL VOLUME 83.7 fl (81.0-99.0); MEAN CORPUSCULAR HEMOGLOBIN 27.7 pg (27.0-31.0); MEAN CORPUSCULAR HGB CONC 33.1 g/dL (33.0-37.0); MEAN PLATELET VOLUME 7.8 fl (7.2-11.7); MONO # 0.5 K/uL (0.0-0.8); MONO % 5.4 % (0.0-10.0); NEUT # 6.4 K/uL (1.8-7.0); RBC 5.15 Mil/uL (3.80-5.20); RED CELL DISTRIBUTION WIDTH 14.5 % (11.5-14.5)
[2017-09-06 18:53] LABS: PROTHROMBIN TIME 11.6 Seconds (9.8-13.1)
[2017-09-06] MEDS ORDERED: Dextrose 50% SYRINGE Inj (50 ml) IV PRN (19:57)
[2017-09-06] MEDS ORDERED: Glucagon Recombinant 1 mg Inj IM PRN (19:57)
--- NOTE | 2017-09-06 20:15 | CP.PCM.HP ---
History of Present Illness - History of Present Illness History of Present Illness: CC: Left hip pain HPI: 82 y/o woman w/ pmh of NIDDM2, anxiety, HTN, presents to the ED for left hip pain. The patient reports she fell prior to ED arrival. The patient was pushing her cart filled with groceries on her way home, when the cart became stuck and upon attempting to turn she fell on her left side. The patient reports she protected her head while falling and denies head trauma or LOC. The patient denies any dizziness or loss of vision prior to fall. The patient reports histroy of previous falls, most recent was 1 year ago on her right hip for which she had ORIF and 2015 requiring ORIF for her right ankle. The patient reports non-radiating left hip pain. The patient denies back pain. The patient denies headaches, chest pain, SOB, dizziness, abdominal pain, nausea , vomiting, diarrhea, dysuria, or fever. The patient reports her last meal was last night but she had coffee and crackers this morning. ED course: vitals: 98.6 F, 97 bpm, 145/77 mm Hg, 17 breaths/min, O2 96% RA CBC: 9.0>14.2/43.2<187 CMP: pending PT: 11.6 INR: 1.0 aPTT: 27.0 XR hip: acute mildly displaced left femoral neck subcapital fracture, s/p internal fixation w/ 2 screws of right femoral neck PMD: Dr. Abdullahi Martinez PMH: NIDDM2, anxiety, HTN, breast cancer, TB meds: see med list allergies: NKDA PSH: 2017 right hip ORIF, 2014 right ankle ORIF, breast lumpectomy, thoracic surgery Fam: non-contributory SOC: smokes 1 pack/3 days, smokes on and off, smoking since age 19, denies alcohol and drugs ROS: 12 points assessed and negative unless otherwise reported in HPI Present on Admission - Present on Admission Any Indicators Present on Admission: No History of DVT/PE: No History of Uncontrolled Diabetes: No Urinary Catheter: No Decubitus Ulcer Present: No Review of Systems - Review of Systems All systems: reviewed and no additional remarkable complaints except - Constitutional Constitutional: absent: Fever, Headache - EENT Eyes: absent: Change in Vision - Cardiovascular Cardiovascular: absent: Chest Pain, Palpitations - Respiratory Respiratory: absent: Dyspnea - Gastrointestinal Gastrointestinal: absent: Abdominal Pain, Diarrhea, Nausea, Vomiting - Genitourinary Genitourinary: absent: Dysuria - Musculoskeletal Musculoskeletal: As Per HPI. absent: Back Pain, Neck Pain - Integumentary Integumentary: absent: Rash - Neurological Neurological: absent: Confusion, Dizziness, Headaches, Syncope Past Patient History - Past Medical History & Family History Past Medical History?: Yes - Past Social History Smoking Status: Former Smoker - CARDIAC Hx Hypercholesterolemia: Yes Hx Hypertension: Yes - PULMONARY Hx Respiratory Disorders: No - NEUROLOGICAL Hx Neurological Disorder: No - HEENT Hx HEENT Problems: No - RENAL Hx Chronic Kidney Disease: No - ENDOCRINE/METABOLIC Hx Endocrine Disorders: Yes Hx Diabetes Mellitus Type 2: Yes - HEMATOLOGICAL/ONCOLOGICAL Hx Blood Disorders: Yes Hx Cancer: Yes (right breast CA) Other/Comment: Hx radiation 2009 - INTEGUMENTARY Hx Dermatological Problems: No - MUSCULOSKELETAL/RHEUMATOLOGICAL Hx Fractures: Yes - GENITOURINARY/GYNECOLOGICAL Hx Genitourinary Disorders: No - PSYCHIATRIC Hx Anxiety: Yes - SURGICAL HISTORY Hx Tonsillectomy: Yes - ANESTHESIA Hx Malignant Hyperthermia: No Meds Allergies/Adverse Reactions: Allergies Allergy/AdvReac Type Severity Reaction Status Date / Time No Known Allergies Allergy Verified 05/25/14 15:13 Physical Exam - Constitutional Appears: Non-toxic, No Acute Distress - Head Exam Head Exam: ATRAUMATIC, NORMAL INSPECTION, NORMOCEPHALIC - Eye Exam Eye Exam: Normal appearance - ENT Exam ENT Exam: Mucous Membranes Moist - Neck Exam Neck exam: Positive for: Full Rom. Negative for: Tenderness - Respiratory Exam Respiratory Exam: Clear to Auscultation Bilateral. absent: Accessory Muscle Use , Decreased Breath Sounds, Rales, Rhonchi, Wheezes, Respiratory Distress - Cardiovascular Exam Cardiovascular Exam: REGULAR RHYTHM, RRR. absent: Tachycardia, Clicks, Diastolic murmur, Systolic Murmur - GI/Abdominal Exam GI & Abdominal Exam: Normal Bowel Sounds, Soft. absent: Distended, Tenderness - Extremities Exam Extremities exam: Negative for: calf tenderness - Expanded Lower Extremities Exam Left Hip exam: tenderness. absent: ecchymosis, external rotation, full ROM (limited by pain), internal rotation, laceration - Neurological Exam Neurological exam: Alert, Oriented x3 - Skin Skin Exam: Dry, Intact, Normal Color, Warm Results - Vital Signs Recent Vital Signs: Last Vital Signs Temp 98.6 F 09/06/17 16:16 Pulse 97 H 09/06/17 16:16 Resp 17 09/06/17 16:16 BP 145/77 09/06/17 16:16 Pulse Ox 96 09/06/17 19:16 - Labs Result Diagrams: 09/06/17 18:39 Labs: Laboratory Results - last 24 hr 09/06/17 09/06/17 09/06/17 18:39 18:39 19:04 WBC 9.0 RBC 5.15 Hgb 14.3 Hct 43.2 MCV 83.7 MCH 27.7 MCHC 33.1 RDW 14.5 Plt Count 187 MPV 7.8 Neut % (Auto) 71.0 Lymph % (Auto) 21.0 [place] % (Auto) 5.4 Eos % (Auto) 2.0 Baso % (Auto) 0.6 Neut # (Auto) 6.4 Lymph # (Auto) 1.9 [place] # (Auto) 0.5 Eos # (Auto) 0.2 Baso # (Auto) 0.1 PT 11.6 INR 1.0 APTT 27.0 BBK History Checked Patient has bt Assessment & Plan - Assessment and Plan (Free Text) Assessment: 82 y/o woman w/ pmh of NIDDM2, anxiety, HTN, presents to the ED for left hip pain. 2/2 Left hip fracture Plan: left hip pain - 2/2 left hip fracture - vitals: 98.6 F, 97 bpm, 145/77 mm Hg, 17 breaths/min, O2 96% RA - CBC: 9.0>14.2/43.2<187 - CMP: pending - PT: 11.6 - INR: 1.0 - aPTT: 27.0 - XR hip: acute mildly displaced left femoral neck subcapital fracture, s/p internal fixation w/ 2 screws of right femoral neck - ortho consult ordered - NPO for now - IVF D5NS @ 90 mL/hr - admit to med/surg - monitor for acute changes pain management - tylenol 650 mg PO Q6h prn, mild - motrin 600 mg PO Q6h prn, moderate - morphine 4 mg IV Q4h prn, severe NIDDM2 - metformin held for now - insulin correction scale - hypoglycemic protocol anxiety - klonopin 1.5 mg PO daily prophylactic measures - DVT SCDs for now
[2017-09-06 20:21] LABS: SQUAMOUS EPITHIAL 2 /hpf (0-5); URINE BACTERIA RARE (<OCC); URINE BILIRUBIN NEGATIVE (NEGATIVE); URINE BLOOD NEGATIVE (NEGATIVE); URINE CLARITY CLEAR (Clear); URINE COLOR YELLOW (YELLOW); URINE GLUCOSE (UA) NEG (Normal); URINE LEUKOCYTE ESTERASE MOD Leu/uL (Negative); URINE PROTEIN NEGATIVE (NEGATIVE); URINE UROBILINOGEN 0.2-1.0 mg/dL (0.2-1.0)
[2017-09-06] MEDS ORDERED: Morphine 4 MG/ML VIAL IVP PRN (20:25)
[2017-09-06 20:26] LABS: CALCIUM 9.1 mg/dL (8.4-10.2); GFR AFRICAN-AMERICAN > 60; GFR NON-AFRICAN AMERICAN > 60
[2017-09-06 20:30] LABS: ALB/GLOB RATIO 1.4 (1.0-2.1); ALBUMIN 4.8 g/dL (3.5-5.0); ALT/SGPT 67 U/L (9-52); AST/SGOT 10 U/L (14-36); BLOOD UREA NITROGEN 8 mg/dl (7-17)
[2017-09-06] MEDS: Dextrose 5%/0.9% NS 1,000 ML IV SCH (20:51)
[2017-09-06] MEDS: Insulin Lispro (humaLOG) 100 Units/ml Inj SC SCH (22:50)
[2017-09-07 07:15] LABS: BASO # 0.1 K/uL (0.0-0.2); EOS # 0.1 K/uL (0.0-0.7); HEMOGLOBIN 12.3 g/dL (12.0-16.0); LYMPH # 1.4 K/uL (1.0-4.3); LYMPH % 21.6 % (20.0-40.0); MEAN CELL VOLUME 84.7 fl (81.0-99.0); MEAN CORPUSCULAR HEMOGLOBIN 27.9 pg (27.0-31.0); MEAN PLATELET VOLUME 7.9 fl (7.2-11.7); MONO # 0.3 K/uL (0.0-0.8); MONO % 4.6 % (0.0-10.0); NEUT # 4.5 K/uL (1.8-7.0); NEUT % 70.8 % (50.0-75.0); NRBC % 0.1 % (0.0-0.0); RBC 4.42 Mil/uL (3.80-5.20); RED CELL DISTRIBUTION WIDTH 14.2 % (11.5-14.5); WHITE BLOOD COUNT 6.4 K/uL (4.8-10.8)
[2017-09-07 07:38] LABS: ALB/GLOB RATIO 1.2 (1.0-2.1); ALT/SGPT 57 U/L (9-52); AST/SGOT 46 U/L (14-36); BLOOD UREA NITROGEN 13 mg/dl (7-17); CALCIUM 8.6 mg/dL (8.4-10.2); GFR AFRICAN-AMERICAN > 60; GFR NON-AFRICAN AMERICAN > 60
[2017-09-07] MEDS: Insulin Lispro (humaLOG) 100 Units/ml Inj SC SCH ×4 (08:07→22:01)
[2017-09-07] MEDS: Dextrose 5%/0.9% NS 1,000 ML IV SCH (08:13)
--- NOTE | 2017-09-07 12:01 | CP.PCM.PN ---
Subjective - Date & Time of Evaluation Date of Evaluation: 09/07/17 Time of Evaluation: 09:40 - Subjective Subjective: Patient was seen and examined this morning at bedside, NAD. Patient reports left hip pain but controlled on medication. Patient states she is hungry, denies any chest pain, SOB, dizziness or urinary symptoms. Objective - Vital Signs/Intake and Output Vital Signs (last 24 hours): Temp Pulse Resp BP Pulse Ox 98.3 F 77 20 117/64 92 L 09/07/17 08:19 09/07/17 08:19 09/07/17 08:19 09/07/17 08:19 09/07/17 08:19 - Medications Medications: Current Medications Acetaminophen (Tylenol 325mg Tab) 650 mg PO Q6 PRN PRN Reason: Pain, Mild (1-3) Clonazepam (Klonopin) 0.5 mg PO BID NIRAV Dextrose (Dextrose 50% Inj) 0 ml IV STAT PRN; Protocol PRN Reason: Hypoglycemia Protocol Dextrose (Glutose 15) 0 gm PO ONCE PRN; Protocol PRN Reason: Hypoglycemia Protocol Enalapril Maleate (Vasotec) 10 mg PO DAILY NIRAV Glucagon (Glucagen Diagnostic Kit) 0 mg IM STAT PRN; Protocol PRN Reason: Hypoglycemia Protocol Ibuprofen (Motrin Tab) 600 mg PO Q6 PRN PRN Reason: Pain, moderate (4-7) Insulin Human Lispro (Humalog) 0 units SC ACHS NIRAV PRN Reason: Protocol Last Admin: 09/07/17 08:07 Dose: Not Given Morphine Sulfate (Morphine) 4 mg IVP Q4 PRN PRN Reason: Pain, severe (8-10) Last Admin: 09/07/17 01:15 Dose: 4 mg Ondansetron HCl (Zofran Tab) 4 mg PO Q6 PRN PRN Reason: Nausea/Vomiting Last Admin: 09/06/17 23:44 Dose: 4 mg - Labs Labs: 09/07/17 05:30 09/07/17 05:30 PT 11.6 Seconds (9.8-13.1) 09/06/17 18:39 INR 1.0 (0.9-1.2) 09/06/17 18:39 APTT 27.0 Seconds (25.6-37.1) 09/06/17 18:39 - Constitutional Appears: No Acute Distress - Head Exam Head Exam: NORMAL INSPECTION - Eye Exam Eye Exam: Normal appearance - ENT Exam ENT Exam: Mucous Membranes Moist - Neck Exam Neck Exam: Normal Inspection - Respiratory Exam Respiratory Exam: Clear to Ausculation Bilateral, NORMAL BREATHING PATTERN - Cardiovascular Exam Cardiovascular Exam: REGULAR RHYTHM - GI/Abdominal Exam GI & Abdominal Exam: Soft, Normal Bowel Sounds - Extremities Exam Additional comments: Left hip tender, No erythema or hematoma Good b/l LE pulses, sensory intact b/l - Neurological Exam Neurological Exam: Alert, Awake, Oriented x3 - Psychiatric Exam Psychiatric exam: Normal Affect - Skin Skin Exam: Dry, Intact, Normal Color, Warm Assessment and Plan - Assessment and Plan (Free Text) Assessment: A/P: 82 y/o F with PMH of DMII, HTN and Anxiety admitted for evaluation and treatment of left femoral fracture. Displaced left femoral neck fracture - Afebrile, Stable VS - XR hip: acute mildly displaced left femoral neck subcapital fracture, s/p internal fixation w/ 2 screws of right femoral neck - Ortho consult, Dr. Jerome, appreciated - Non weight bearing, bed rest - Left hip CT w/o Contrast today - Follow up CXR and EKG for medically clearance - NPO past midnight - Possible surgical intervention tomorrow pain management - tylenol 650 mg PO Q6h prn, mild - motrin 600 mg PO Q6h prn, moderate - morphine 4 mg IV Q4h prn, severe NIDDM2 - metformin held for now - insulin correction scale - hypoglycemic protocol HTN - Controlled - Continue home meds, Enalapril anxiety - klonopin 0.5 mg PO BID DVT PPX - SCD
--- NOTE | 2017-09-07 12:18 | CT ---
PROCEDURE: CT of the pelvis and hips without contrast HISTORY: left hip fx COMPARISON: Comparison is made to the previous x-ray. TECHNIQUE: Thin cut axial and reformatted coronal and sagittal CT images of the pelvis and hips were obtained without IV contrast administration. Reconstructed images of both knees were also obtained. FINDINGS: There is mildly displaced fracture at the left femoral neck subcapital fracture. There is mild impaction of the femoral neck in the femoral head with slight displacement measures approximately 4.5 millimeter. No evidence of dislocation at the left hip. Qsaq-cu-zniaolwy osteoarthritic changes at the left hip noted. Again noted are 2 fixation screws through the right femoral neck and head. The screws are seen at appropriate position without evidence of loosening or displacement. Moderate osteoarthritic changes at the right hip are also noted. IMPRESSION: Slightly displaced impacted comminuted left subcapital femoral fracture noted. No evidence of dislocation. Bilateral moderate osteoarthritic changes.
--- NOTE | 2017-09-07 12:30 | CON ---
DATE: 09/07/2017 CHIEF COMPLAINT: Left hip fracture. HISTORY OF PRESENT ILLNESS: The patient is an 82-year-old female who is examined at bedside. She presented into the Emergency Room at the [facility] after mechanical fall. After a fall, the patient experienced pain in her left hip. X-rays showed a impacted left femoral neck fracture. The patient's past medical history is significant for type 2 diabetes, hypertension. She denied any dizziness or loss of consciousness prior to the fall. The patient has undergone percutaneous paining of the right hip few years ago by another surgeon. PAST MEDICAL HISTORY: Type 2 diabetes, hypertension, and anxiety. PHYSICAL EXAMINATION: EXTREMITIES: Examination of the patient's hip, the leg is not shortened and externally rotated. SKIN: The skin is intact. No ecchymosis. No swelling. NEUROLOGIC: She is neurovascularly intact distally. IMAGING STUDIES: X-rays and CT scan of the patient's left hip showing a impacted type 1 femoral neck fracture. ASSESSMENT: An 82-year-old female with left hip type 1 impacted femoral neck fracture. TREATMENT PLAN: I had a detail discussion with the patient reviewing the history, physical exam, and x-ray finding. I presented the patient with different treatment options, both operative and nonoperative. I reviewed the risks and benefits of both treatment options and I have recommended closed reduction percutaneous pinning of the fracture. The risks include, but not limited to bleeding, infection, neurovascular damage, continued pain, stiffness, symptomatic hardware, and need for further surgery among others. The patient fully understood the risks and benefits and would like to proceed. The patient will remain n.p.o. after midnight and I will plan for surgery either tomorrow or Friday. Rigoberto Jerome MD
--- NOTE | 2017-09-07 13:45 | RAD ---
PROCEDURE: CHEST RADIOGRAPH, 1 VIEW HISTORY: medical clearance COMPARISON: Comparison is made with prior study dated 05/22/2014 FINDINGS: LUNGS: Again noted are reticular opacities at the right upper lungs likely represents scar tissue. The right lung appears smaller than the left. No evidence of a new infiltrate or consolidation in the lungs. PLEURA: No pneumothorax or pleural fluid seen. CARDIOVASCULAR: Normal. OSSEOUS STRUCTURES: No significant abnormalities. VISUALIZED UPPER ABDOMEN: Normal. OTHER FINDINGS: None. IMPRESSION: No active disease.
[2017-09-07] MEDS ORDERED: Sodium Chloride 0.9% 1,000 ML IV SCH (23:00)
[2017-09-08 06:20] LABS: HEMOGLOBIN 12.9 g/dL (12.0-16.0); MEAN CELL VOLUME 84.8 fl (81.0-99.0); MEAN CORPUSCULAR HEMOGLOBIN 28.4 pg (27.0-31.0); MEAN CORPUSCULAR HGB CONC 33.5 g/dL (33.0-37.0); RBC 4.53 Mil/uL (3.80-5.20); RED CELL DISTRIBUTION WIDTH 14.1 % (11.5-14.5); WHITE BLOOD COUNT 8.5 K/uL (4.8-10.8)
[2017-09-08 06:36] LABS: ALB/GLOB RATIO 1.2 (1.0-2.1); ALBUMIN 4.1 g/dL (3.5-5.0); ALT/SGPT 50 U/L (9-52); AST/SGOT 29 U/L (14-36); BLOOD UREA NITROGEN 11 mg/dl (7-17); CALCIUM 8.9 mg/dL (8.4-10.2); GFR AFRICAN-AMERICAN > 60; GFR NON-AFRICAN AMERICAN > 60
[2017-09-08] MEDS: Insulin Lispro (humaLOG) 100 Units/ml Inj SC SCH ×4 (07:56→22:44)
--- NOTE | 2017-09-08 08:14 | CP.PCM.PN ---
Subjective - Date & Time of Evaluation Date of Evaluation: 09/08/17 Time of Evaluation: 08:15 - Subjective Subjective: Patient seen and examined at bedside comfortable. Pain well controlled. No other complaints. Objective - Vital Signs/Intake and Output Vital Signs (last 24 hours): Temp Pulse Resp BP Pulse Ox 99.3 F 100 H 19 128/68 97 09/08/17 06:49 09/08/17 00:00 09/08/17 00:00 09/08/17 00:00 09/08/17 00:00 - Medications Medications: Current Medications Acetaminophen (Tylenol 325mg Tab) 650 mg PO Q6 PRN PRN Reason: Pain, Mild (1-3) Clonazepam (Klonopin) 1 mg PO HS [facility] Dextrose (Dextrose 50% Inj) 0 ml IV STAT PRN; Protocol PRN Reason: Hypoglycemia Protocol Dextrose (Glutose 15) 0 gm PO ONCE PRN; Protocol PRN Reason: Hypoglycemia Protocol Enalapril Maleate (Vasotec) 10 mg PO DAILY [facility] Last Admin: 09/07/17 09:20 Dose: 10 mg Glucagon (Glucagen Diagnostic Kit) 0 mg IM STAT PRN; Protocol PRN Reason: Hypoglycemia Protocol Sodium Chloride (Sodium Chloride 0.9%) 1,000 mls @ 70 mls/hr IV .[id number] [facility] Stop: 09/08/17 15:55 Last Admin: 09/07/17 23:51 Dose: 70 mls/hr Ibuprofen (Motrin Tab) 600 mg PO Q6 PRN PRN Reason: Pain, moderate (4-7) Insulin Human Lispro (Humalog) 0 units SC ACHS [facility] PRN Reason: Protocol Last Admin: 09/08/17 07:56 Dose: Not Given Morphine Sulfate (Morphine) 4 mg IVP Q4 PRN PRN Reason: Pain, severe (8-10) Last Admin: 09/08/17 07:53 Dose: 4 mg Ondansetron HCl (Zofran Tab) 4 mg PO Q6 PRN PRN Reason: Nausea/Vomiting Last Admin: 09/06/17 23:44 Dose: 4 mg - Labs Labs: 09/08/17 05:40 09/08/17 05:40 PT 11.6 Seconds (9.8-13.1) 09/06/17 18:39 INR 1.0 (0.9-1.2) 09/06/17 18:39 APTT 27.0 Seconds (25.6-37.1) 09/06/17 18:39 - Extremities Exam Additional comments: L hip: mild groin and lateral tenderness, mild swelling, no lesions sensation intact SP/DP/TN motor intact EHL/FHL/TA/G pedal pulses intact comp soft NT Assessment and Plan (1) Subcapital fracture of left femur Assessment & Plan: Patient is an 82 y/o female with a left femoral neck fracture -pain control -NWB LLE -NPO pMN tonight -hold DVT ppx -plan for left hip open reduction percutaneous pinning tomorrow -above d/w Dr. Jerome in agreement Status: Acute
--- NOTE | 2017-09-08 09:17 | CP.PCM.PN ---
Subjective - Date & Time of Evaluation Date of Evaluation: 09/08/17 Time of Evaluation: 08:20 - Subjective Subjective: Patient seen and examined this morning at bedside. NAD, pain is well controlled on medications. Patient had fever of 101 at midnight, improved after tylenol. Patient was NPO overnight for possible surgical interventions, denies any nausea , vomiting, chest pain, SOB, dizziness, abdominal discomfort or urinary symptoms. (As per Ortho; possible surgical interventions tomorrow, no need for NPO) Objective - Vital Signs/Intake and Output Vital Signs (last 24 hours): Temp Pulse Resp BP Pulse Ox 99.2 F 88 18 113/66 94 L 09/08/17 08:14 09/08/17 08:14 09/08/17 08:14 09/08/17 08:14 09/08/17 08:14 - Medications Medications: Current Medications Acetaminophen (Tylenol 325mg Tab) 650 mg PO Q6 PRN PRN Reason: Pain, Mild (1-3) Clonazepam (Klonopin) 1 mg PO [facility] Dextrose (Dextrose 50% Inj) 0 ml IV STAT PRN; Protocol PRN Reason: Hypoglycemia Protocol Dextrose (Glutose 15) 0 gm PO ONCE PRN; Protocol PRN Reason: Hypoglycemia Protocol Enalapril Maleate (Vasotec) 10 mg PO DAILY [facility] Last Admin: 09/07/17 09:20 Dose: 10 mg Glucagon (Glucagen Diagnostic Kit) 0 mg IM STAT PRN; Protocol PRN Reason: Hypoglycemia Protocol Sodium Chloride (Sodium Chloride 0.9%) 1,000 mls @ 70 mls/hr IV .[id number] [facility] Stop: 09/08/17 15:55 Last Admin: 09/07/17 23:51 Dose: 70 mls/hr Insulin Human Lispro (Humalog) 0 units SC ACHS [facility] PRN Reason: Protocol Last Admin: 09/08/17 07:56 Dose: Not Given Morphine Sulfate (Morphine) 4 mg IVP Q4 PRN PRN Reason: Pain, severe (8-10) Last Admin: 09/08/17 07:53 Dose: 4 mg Ondansetron HCl (Zofran Tab) 4 mg PO Q6 PRN PRN Reason: Nausea/Vomiting Last Admin: 09/06/17 23:44 Dose: 4 mg - Labs Labs: 09/08/17 05:40 09/08/17 05:40 PT 11.6 Seconds (9.8-13.1) 09/06/17 18:39 INR 1.0 (0.9-1.2) 09/06/17 18:39 APTT 27.0 Seconds (25.6-37.1) 09/06/17 18:39 - Constitutional Appears: No Acute Distress - Head Exam Head Exam: NORMAL INSPECTION - Eye Exam Eye Exam: Normal appearance - ENT Exam ENT Exam: Mucous Membranes Moist - Respiratory Exam Respiratory Exam: Clear to Ausculation Bilateral, NORMAL BREATHING PATTERN - Cardiovascular Exam Cardiovascular Exam: REGULAR RHYTHM - GI/Abdominal Exam GI & Abdominal Exam: Soft, Normal Bowel Sounds - Extremities Exam Additional comments: Left hip tenderness, no erythema or hematomas - Neurological Exam Neurological Exam: Alert, Awake, Oriented x3 Assessment and Plan - Assessment and Plan (Free Text) Assessment: A/P: 82 y/o F with PMH of DMII, HTN and Anxiety admitted for evaluation and treatment of left femoral fracture. Displaced left femoral neck fracture - Afebrile, Stable VS (101 fever at midnight) - XR hip: 09/06:acute mildly displaced left femoral neck subcapital fracture, s/p internal fixation w/ 2 screws of right femoral neck - CT hip: 09/07: slightly displaced comminuted left subcapital femoral fracture - CXR: 09/07: No acute changes - EK/2: first dg AV block - Ortho consult, Dr. Jerome, appreciated - Non weight bearing, bed rest - NPO past midnight - Possible surgical intervention tomorrow 09/09 - Monitor for any fever overnight Pain management - tylenol 650 mg PO Q6h prn, mild - motrin 600 mg PO Q6h prn, moderate - morphine 4 mg IV Q4h prn, severe Fever of unknown etiology - Improved -101 F at midnight, improved after Tylenol - Afebrile, will start Rocephin 1gm daily 09/08/17 - If spikes fever again, possible Bcx NIDDM2 - metformin held for now - insulin correction scale - hypoglycemic protocol - HBA1C: 6.3 (09/08/17) HTN - Controlled - Continue home meds, Enalapril - Today BP less than 120 systolic : held Enalapril Anxiety - klonopin 1mg PO QHS DVT PPX - SCD - Lovenox 40mg SC only today
--- NOTE | 2017-09-08 09:53 | PQF GENQUE ---
This form is a permanent part of the medical record 09/08/17 Dr. Humphrey, Admitting RN has documentation of the following: R heel wound noted, dressing CDI. Awaiting game moderator consult. Please clarify if there is an associated diagnosis or not to go along with documentation clerk of R heel wound noted ( etiology). Clarification of your documentation is requested to better reflect the severity of illness and intensity of treatment of your patient. Indicators present PHYSICIAN'S RESPONSE Based on your medical judgment of the clinical indicators outlined above please clarify the following: [] Practitioner response [x] If unable to determine, please check the box, sign and date. Present On Admission (POA) Indicator: [] Present at the time of admission [] Not present at the time of admission [x] Clinically Undetermined In responding to this query, please exercise your independent professional judgment. The fact that a question is asked does not imply that any particular answer is desired or expected. Thank you for your clarification on this documentation. If you have any questions please call:ext [phone] * Thank you, Sarai Newton RN [facility]
[2017-09-08] MEDS ORDERED: Enoxaparin 40 mg Syringe SC ONE (10:15)
--- NOTE | 2017-09-08 14:45 | CARD ---
APPROVED REPORT EKG Measurement Heart [id number] <Conclusion> Sinus rhythm baseline artefact
[2017-09-08] MEDS: Morphine 15 mg Immediate Release Tab PO SCH (17:28)
[2017-09-08] MEDS: Docusate-Senna 50 mg-8.6 mg Tab PO SCH (22:09)
[2017-09-09 06:13] LABS: MEAN CELL VOLUME 83.8 fl (81.0-99.0); MEAN CORPUSCULAR HEMOGLOBIN 28.2 pg (27.0-31.0); MEAN CORPUSCULAR HGB CONC 33.6 g/dL (33.0-37.0); RBC 3.92 Mil/uL (3.80-5.20); RED CELL DISTRIBUTION WIDTH 14.2 % (11.5-14.5); WHITE BLOOD COUNT 6.1 K/uL (4.8-10.8)
[2017-09-09] MEDS: Sodium Chloride 0.9% 1,000 ML IV SCH ×2 (06:14)
[2017-09-09 06:19] LABS: ALB/GLOB RATIO 1.1 (1.0-2.1); ALBUMIN 3.7 g/dL (3.5-5.0); ALT/SGPT 43 U/L (9-52); AST/SGOT 20 U/L (14-36); BLOOD UREA NITROGEN 7 mg/dl (7-17); CALCIUM 8.4 mg/dL (8.4-10.2); GFR AFRICAN-AMERICAN > 60; GFR NON-AFRICAN AMERICAN > 60
[2017-09-09] MEDS: Insulin Lispro (humaLOG) 100 Units/ml Inj SC SCH ×4 (07:11→22:35)
[2017-09-09] MEDS ORDERED: Bupivacaine HCl 0.25% PF (30 ml) Inj ONE (07:16)
[2017-09-09] MEDS ORDERED: Thrombin Topical 5,000 Int Units Spray Kit ONE (07:16)
[2017-09-09] MEDS ORDERED: Succinylcholine 200 mg/10 ml Inj IV ONE (07:21)
[2017-09-09] MEDS ORDERED: Etomidate 20 mg/10ml Inj IV ONE (07:21)
[2017-09-09] MEDS ORDERED: Phenylephrine 10 mg/ml Inj ONE (07:22)
[2017-09-09] MEDS ORDERED: Neostigmine 1:1000 (1 mg/ml) Inj ONE (07:45)
[2017-09-09] MEDS ORDERED: Ropivacaine 0.5% 30ML IV ONE (07:47)
[2017-09-09] MEDS ORDERED: Rocuronium 10 mg/ml (5 ml) ONE (08:00)
[2017-09-09] MEDS: Morphine 15 mg Immediate Release Tab PO SCH ×2 (08:29→17:45)
--- NOTE | 2017-09-09 08:46 | CP.PCM.PN ---
Subjective - Date & Time of Evaluation Date of Evaluation: 09/09/17 Time of Evaluation: 07:30 - Subjective Subjective: Post-op note: POD#0 82 y/o F S/p Left hip percutaneous pinning of subcapital fx. Patient was examined and seen post op at [facility]. NAD, AAOx3, patient tolerated procedure well. Denies any pain, chest pain, SOB, dizziness or weakness. Patient reports sore throat, was able to tolerate liquid but hasn't eaten any solid food. Objective - Vital Signs/Intake and Output Vital Signs (last 24 hours): Temp Pulse Resp BP Pulse Ox 98.6 F 74 19 131/69 98 09/09/17 00:00 09/09/17 00:00 09/09/17 00:00 09/09/17 00:00 09/09/17 00:00 - Medications Medications: Current Medications Acetaminophen (Tylenol 325mg Tab) 650 mg PO Q6 PRN PRN Reason: Pain, Mild (1-3) Clonazepam (Klonopin) 1 mg PO HS [facility] Last Admin: 09/08/17 22:07 Dose: 1 mg Dextrose (Dextrose 50% Inj) 0 ml IV STAT PRN; Protocol PRN Reason: Hypoglycemia Protocol Dextrose (Glutose 15) 0 gm PO ONCE PRN; Protocol PRN Reason: Hypoglycemia Protocol Enalapril Maleate (Vasotec) 10 mg PO DAILY [facility] Last Admin: 09/09/17 08:28 Dose: Not Given Glucagon (Glucagen Diagnostic Kit) 0 mg IM STAT PRN; Protocol PRN Reason: Hypoglycemia Protocol Ceftriaxone Sodium 1 gm/ (Sodium Chloride) 100 mls @ 100 mls/hr IVPB DAILY [facility] PRN Reason: Protocol Last Admin: 09/09/17 08:28 Dose: Not Given Sodium Chloride (Sodium Chloride 0.9%) 1,000 mls @ 90 mls/hr IV .[id number] [facility] Stop: 09/09/17 18:40 Last Admin: 09/09/17 06:14 Dose: Not Given Insulin Human Lispro (Humalog) 0 units SC ACHS [facility] PRN Reason: Protocol Last Admin: 09/09/17 07:11 Dose: Not Given Morphine Sulfate (Morphine) 4 mg IVP Q4 PRN PRN Reason: Pain, severe (8-10) Last Admin: 09/08/17 14:06 Dose: 4 mg Morphine Sulfate (Morphine Immediate Release Tab) 15 mg PO BID [facility] Last Admin: 09/09/17 08:29 Dose: Not Given Ondansetron HCl (Zofran Tab) 4 mg PO Q6 PRN PRN Reason: Nausea/Vomiting Last Admin: 09/06/17 23:44 Dose: 4 mg Senna/Docusate Sodium (Senokot S 50 Mg-8.6 Mg) 2 tab PO HS [facility] Last Admin: 09/08/17 22:09 Dose: 2 tab - Labs Labs: 09/09/17 05:35 09/09/17 05:35 PT 11.6 Seconds (9.8-13.1) 09/06/17 18:39 INR 1.0 (0.9-1.2) 09/06/17 18:39 APTT 27.0 Seconds (25.6-37.1) 09/06/17 18:39 - Constitutional Appears: No Acute Distress - Head Exam Head Exam: NORMAL INSPECTION - Eye Exam Eye Exam: Normal appearance - ENT Exam ENT Exam: Mucous Membranes Moist - Respiratory Exam Respiratory Exam: Clear to Ausculation Bilateral, NORMAL BREATHING PATTERN - Cardiovascular Exam Cardiovascular Exam: REGULAR RHYTHM - GI/Abdominal Exam GI & Abdominal Exam: Soft, Normal Bowel Sounds - Extremities Exam Additional comments: left hip dressing is placed, dry intact Sensory intact b/l LEs, SCD placed, able to move her toes - Back Exam Back Exam: NORMAL INSPECTION - Neurological Exam Neurological Exam: Alert, Awake, Oriented x3 - Psychiatric Exam Psychiatric exam: Normal Affect - Skin Skin Exam: Dry, Intact, Normal Color, Warm Assessment and Plan - Assessment and Plan (Free Text) Assessment: A/P: 82 y/o F with PMH of DMII, HTN and Anxiety admitted for evaluation and treatment of left femoral fracture. Patient is s/p Left hip percutaneous pinning of subcapital fx. Displaced left femoral neck fracture -S/p Left hip percutaneous pinning of subcapital fx () - Afebrile, Stable VS - XR hip: 09/06:acute mildly displaced left femoral neck subcapital fracture, s/p internal fixation w/ 2 screws of right femoral neck - CT hip: 09/07: slightly displaced comminuted left subcapital femoral fracture - CXR: 09/07: No acute changes - EK/2: first dg AV block - Ortho consult, Dr. Jerome, appreciated - Will follow Ortho nancy, post op Pain management - tylenol 650 mg PO Q6h prn, mild - motrin 600 mg PO Q6h prn, moderate - morphine 4 mg IV Q4h prn, severe - morphine 15mg PO BID Fever of unknown etiology - Improved - 101 F (08/08/17), improved after Tylenol - Afebrile, s/p Rocephin - If spikes fever again, possible Bcx - S/p Ancef NIDDM2 - metformin held for now - insulin correction scale - hypoglycemic protocol - HBA1C: 6.3 (09/08/17) HTN - Controlled - Continue home meds, Enalapril - Today BP less than 120 systolic : held Enalapril Anxiety - klonopin 1mg PO QHS DVT PPX - SCD - Lovenox 40mg SC from tomorrow
[2017-09-09] MEDS ORDERED: Lactated Ringer's 1,000 ML IV ONE (09:01)
--- NOTE | 2017-09-09 09:10 | PCM.SURG1 ---
Surgeon's Initial Post Op Note - Surgeon's Notes Surgeon: Rigoberto Jerome MD Abseiling Instructor: Colin Valderrama PA-C Type of Anesthesia: General Endo Pre-Operative Diagnosis: Left hip subcapital femoral fx Operative Findings: see op report Post-Operative Diagnosis: same as pre-op dx Operation Performed: Left hip percutaneous pinning of subcapital fx Specimen/Specimens Removed: none Estimated Blood Loss: EBL {In ML}: 4 Date of Surgery/Procedure: 09/09/17 Time of Surgery/Procedure: 08:00
[2017-09-09] MEDS ORDERED: Lactated Ringer's 1,000 ML IV SCH (09:45)
--- NOTE | 2017-09-09 11:10 | RAD ---
PROCEDURE: Left Hip X-ray Radiographs. HISTORY: s/p left hip pinning. COMPARISON: CT left hip dated 09/07/2017. FINDINGS: BONES: Interval pin fixation of the previously described subcapital left hip fracture. JOINTS: Unchanged. SOFT TISSUES: Postsurgical changes. OTHER FINDINGS: None. IMPRESSION: Interval pin fixation of the previously described subcapital left hip fracture.
--- NOTE | 2017-09-09 12:09 | RAD ---
PROCEDURE: Intraoperative Fluoroscopy. HISTORY: Left hip fracture FINDINGS: Fluoroscopic assistance was provided for open reduction internal fixation. Please refer to the operative report from [facility]. Total fluoroscopic time (continuous mode) utilized during the procedure (seconds) 67.5..
[2017-09-09] MEDS ORDERED: Benzocaine/Menthol (Cepacol) Lozenge PO PRN (13:48)
[2017-09-09] MEDS ORDERED: ceFAZolin 1 GM in Sodium Chloride 0.9% 100 ML IVPB ONE ×2 (14:30→20:30)
--- NOTE | 2017-09-09 15:35 | PCM.ANESB3 ---
Femoral Nerve Block - Femoral Nerve Block Date of Procedure: 09/09/17 Anesthesiologist: Antoni Pre-Procedure Diagnosis: Left hip fracture Procedure Performed: Femoral Nerve Block Left - Procedure Femoral Nerve Block: The procedure was explained to the patient that it is for the post-operative pain management. Consent was obtained after a thorough discussion with the patient regarding the benefits and possible complications of local anesthetic block of the femoral nerve at the inguinal crease area. The patient was brought to the operating room and standard monitors were applied. Time-out was held with the circulating nurse to confirm the correct surgery and the appropriate block. UNder general anesthesia, patient was placed in supine position with fully extended lower extremities and the __left groin exposed. The femoral artery was then carefully palpated. The ultrasound transducer was then applied to this area in the transverse plane and the femoral nerve was visualized lateral to the femoral artery and underneath the fascia iliaca. After thorough identification, the inguinal crease area was prepped with Chloraprep At this point, a #22 gauge Stimuplex 4-inch needle was inserted immediately lateral to the femoral artery pulse at the inguinal crease and advanced perpendicularly. The needle was inserted to the ultrasound transducer in-plane towards the femoral nerve in a [id number] direction. Needle advancement was performed carefully under direct ultrasound visualization. Nerve stimulator was used and twitch of the quadriceps muscle was obtained at current of _0.4____ MA. After negative aspiration, __2___cc of _0.25____% __ropivicaine was injected and this was followed with __28____ cc of __0.25 % ropivicaine . Under ultrasound guidance the local anesthetics were observed spreading below fascia iliaca and around the femoral nerve. The needle was removed intact. T The patient tolerated the femoral nerve block well with stable vital signs and was prepared for emergence.
--- NOTE | 2017-09-09 20:33 | OP ---
PROCEDURE DATE: 09/09/2017 PREOPERATIVE DIAGNOSIS: Left hip nondisplaced impacted femoral neck fracture. POSTOPERATIVE DIAGNOSIS: Left hip nondisplaced impacted femoral neck fracture. PROCEDURE PERFORMED: Left hip closed reduction and percutaneous pinning of the left hip. SURGEON: Rigoberto Jerome MD DEVICE REPAIR TECHNICIAN: Colin Saenz PA-C TYPE OF ANESTHESIA: General. ESTIMATED BLOOD LOSS: 20 mL. IMPLANT: Synthes 6.5 cannulated screws. COMPLICATIONS: None. HISTORY: The patient is an 82-year-old female, who had a mechanical fall, landing on the left hip. The patient was seen in the emergency room with x-ray showing a left hip nondisplaced and impacted femoral neck fracture. I had a detailed discussion with the patient reviewing with her different treatment options and the patient elected to proceed with left hip closed reduction and pinning. I reviewed the risks and benefits of the surgery with the patient in detail, the risks included, but not limited to bleeding, infection, neurovascular damage, continued pain, stiffness, nonunion, symptomatic hardware, need for further surgery among others. The patient fully understood the risks and benefits and opted to proceed with the surgery. DESCRIPTION OF PROCEDURE: On the day of the procedure, the patient was brought down to the preop holding area. A laterality sheet was completed, confirming the patient's left hip to be the correct operative site. The patient was brought into the operating room table. She was given appropriate prophylactic antibiotics. The left hip was draped and prepped in the standard sterile manner. The x-rays confirmed the nondisplaced nature of the fracture. Three threaded guidewires were used for the pack of the screws and three 6.5 cannulated screws were placed to compress the fracture. The final radiographs confirming the appropriate positioning of the screws. Next, the wound was copiously irrigated and closed in a standard manner. Standard sterile dressing was applied. The patient was extubated, transferred to a stretcher, and taken to the recovery room. There were no complications of surgery. Colin Saenz is a certified physician data control assistant who was present for the entirety of the case as her participation was crucial in the patient positioning, retraction of critical neurovascular structure, and successful completion of the surgery. Rigoberto Jerome MD MTDKadeem
[2017-09-09] MEDS: Docusate-Senna 50 mg-8.6 mg Tab PO SCH (22:59)
[2017-09-10 06:53] LABS: BASO # 0.1 K/uL (0.0-0.2); BASO % 1.1 % (0.0-2.0); EOS # 0.2 K/uL (0.0-0.7); EOS % 3.1 % (0.0-4.0); HEMOGLOBIN 11.1 g/dL (12.0-16.0); LYMPH # 1.4 K/uL (1.0-4.3); LYMPH % 24.6 % (20.0-40.0); MEAN CORPUSCULAR HEMOGLOBIN 28.7 pg (27.0-31.0); MEAN CORPUSCULAR HGB CONC 34.1 g/dL (33.0-37.0); MONO # 0.3 K/uL (0.0-0.8); MONO % 5.3 % (0.0-10.0); NEUT # 3.7 K/uL (1.8-7.0); NEUT % 65.9 % (50.0-75.0); NRBC % 0.1 % (0.0-0.0); RBC 3.88 Mil/uL (3.80-5.20); RED CELL DISTRIBUTION WIDTH 13.9 % (11.5-14.5); WHITE BLOOD COUNT 5.6 K/uL (4.8-10.8)
[2017-09-10 07:38] LABS: BLOOD UREA NITROGEN 9 mg/dl (7-17); CALCIUM 8.6 mg/dL (8.4-10.2); GFR AFRICAN-AMERICAN > 60; GFR NON-AFRICAN AMERICAN > 60
[2017-09-10] MEDS: Insulin Lispro (humaLOG) 100 Units/ml Inj SC SCH ×4 (07:59→21:28)
[2017-09-10] MEDS: Morphine 15 mg Immediate Release Tab PO SCH ×2 (08:05→16:19)
--- NOTE | 2017-09-10 08:34 | CP.PCM.PN ---
Subjective - Date & Time of Evaluation Date of Evaluation: 09/10/17 Time of Evaluation: 08:00 - Subjective Subjective: Patient seen and examined this morning, POD#1. C/o pain but well controlled, NAD , no acute events overnight. Patient is tolerating PO intake, no BM today, denies any n/v/d/f/c, chest pain, SOB, abdominal pain or urinary symptoms. PT/ OT today. Objective - Vital Signs/Intake and Output Vital Signs (last 24 hours): Temp Pulse Resp BP Pulse Ox 98.1 F 71 18 132/71 100 09/10/17 08:24 09/10/17 08:24 09/10/17 08:24 09/10/17 08:24 09/10/17 08:24 - Medications Medications: Current Medications Acetaminophen (Tylenol 325mg Tab) 650 mg PO Q6 PRN PRN Reason: Pain, Mild (1-3) Benzocaine/Menthol (Cepacol Sore Throat) 1 andre PO Q2 PRN PRN Reason: Sore Throat Last Admin: 09/09/17 17:39 Dose: 1 andre Clonazepam (Klonopin) 1 mg PO HS [facility] Last Admin: 09/09/17 22:59 Dose: 1 mg Dextrose (Dextrose 50% Inj) 0 ml IV STAT PRN; Protocol PRN Reason: Hypoglycemia Protocol Dextrose (Glutose 15) 0 gm PO ONCE PRN; Protocol PRN Reason: Hypoglycemia Protocol Enalapril Maleate (Vasotec) 10 mg PO DAILY [facility] Last Admin: 09/10/17 08:07 Dose: Not Given Enoxaparin Sodium (Lovenox) 40 mg SC DAILY [facility] PRN Reason: Protocol Last Admin: 09/10/17 08:09 Dose: 40 mg Glucagon (Glucagen Diagnostic Kit) 0 mg IM STAT PRN; Protocol PRN Reason: Hypoglycemia Protocol Lactated Ringer's (Lactated Ringer's) 1,000 mls @ 50 mls/hr IV .Q20H [facility] Last Admin: 09/09/17 12:25 Dose: 0 mls Insulin Human Lispro (Humalog) 0 units SC ACHS [facility] PRN Reason: Protocol Last Admin: 09/10/17 07:59 Dose: Not Given Morphine Sulfate (Morphine) 4 mg IVP Q4 PRN PRN Reason: Pain, severe (8-10) Last Admin: 09/10/17 07:50 Dose: 4 mg Morphine Sulfate (Morphine Immediate Release Tab) 15 mg PO BID [facility] Last Admin: 09/10/17 08:05 Dose: 15 mg Ondansetron HCl (Zofran Tab) 4 mg PO Q6 PRN PRN Reason: Nausea/Vomiting Last Admin: 09/09/17 20:44 Dose: 4 mg Senna/Docusate Sodium (Senokot S 50 Mg-8.6 Mg) 2 tab PO HS [facility] Last Admin: 09/09/17 22:59 Dose: 2 tab - Labs Labs: 09/10/17 05:30 09/10/17 05:30 PT 11.6 Seconds (9.8-13.1) 09/06/17 18:39 INR 1.0 (0.9-1.2) 09/06/17 18:39 APTT 27.0 Seconds (25.6-37.1) 09/06/17 18:39 - Constitutional Appears: No Acute Distress - Head Exam Head Exam: NORMAL INSPECTION - Eye Exam Eye Exam: Normal appearance - ENT Exam ENT Exam: Mucous Membranes Moist - Neck Exam Neck Exam: Normal Inspection - Respiratory Exam Respiratory Exam: NORMAL BREATHING PATTERN (Exp wheezing ) - Cardiovascular Exam Cardiovascular Exam: REGULAR RHYTHM - GI/Abdominal Exam GI & Abdominal Exam: Soft, Normal Bowel Sounds - Extremities Exam Additional comments: Left hip dressing, dry, intact,no bleeding. Tender - Back Exam Back Exam: NORMAL INSPECTION - Neurological Exam Neurological Exam: Alert, Awake, Oriented x3 - Psychiatric Exam Psychiatric exam: Normal Affect, Normal Mood - Skin Skin Exam: Dry, Intact, Normal Color, Warm Assessment and Plan - Assessment and Plan (Free Text) Assessment: A/P: 82 y/o F with PMH of DMII, HTN and Anxiety admitted for evaluation and treatment of left femoral fracture. Patient is s/p Left hip percutaneous pinning of subcapital fx. Displaced left femoral neck fracture -S/p Left hip percutaneous pinning of subcapital fx () - Afebrile, Stable VS - XR hip: 09/06:acute mildly displaced left femoral neck subcapital fracture, s/p internal fixation w/ 2 screws of right femoral neck - CT hip: 09/07: slightly displaced comminuted left subcapital femoral fracture - CXR: 09/07: No acute changes - EK/2: first dg AV block - Ortho consult, Dr. Jerome, appreciated - Will follow Ortho nancy, - Contnue incentive spirometer - PT/OT today, will follow nancy' Possible TCU! Pain management - tylenol 650 mg PO Q6h prn, mild - motrin 600 mg PO Q6h prn, moderate - morphine 4 mg IV Q4h prn, severe - morphine 15mg PO BID Expiratory wheezing - Post-op - Normal WBC - Contnue incentive spirometer - Follow up CXR Fever of unknown etiology - Improved - 101 F (08/08/17), improved after Tylenol - Afebrile, s/p Rocephin - If spikes fever again, possible Bcx - S/p Ancef NIDDM2 - metformin held for now - insulin correction scale - hypoglycemic protocol - HBA1C: 6.3 (09/08/17) HTN - Controlled - Continue home meds, Enalapril - Today BP less than 120 systolic : held Enalapril Anxiety - klonopin 1mg PO QHS DVT PPX - SCD - Lovenox 40mg SC from tomorrow
[2017-09-10] MEDS ORDERED: Enoxaparin 40 mg Syringe SC SCH (09:00)
--- NOTE | 2017-09-10 09:18 | RAD ---
HISTORY: exp wheezing COMPARISON: 09/07/2017 chest x-ray, 05/22/2014 chest x-ray, 02/23/2013 chest x-ray and CT chest 10/02/2009 (no prior report for that CT study is now available to me. TECHNIQUE: Chest PA and lateral FINDINGS: LUNGS: The linear and nodular opacity with pleural extension right upper lobe is similar dating back to 2012 chest x-ray. Right axillary clips similar noted. No interval consolidation. PLEURA: No significant pleural effusion identified. No pneumothorax apparent. CARDIOVASCULAR: Mild cardiomegaly. Central pulmonary venous congestion slightly increased since 09/07/2017 OSSEOUS STRUCTURES: Degenerative changes thoracic spine and both shoulders VISUALIZED UPPER ABDOMEN: Normal. OTHER FINDINGS: None. IMPRESSION: Interval increased pulmonary venous congestion since 09/07/2017 Similar -inferred as chronic - right upper lobe pleural parenchymal scarring -as discussed above
--- NOTE | 2017-09-10 12:30 | CP.PCM.PN ---
Subjective - Date & Time of Evaluation Date of Evaluation: 09/10/17 Time of Evaluation: 12:26 - Subjective Subjective: Patient seen and examined OOB to chair. Pain is rated 8/10 currently. Able to ambulate short distance with PT today. No acute events overnight. Objective - Vital Signs/Intake and Output Vital Signs (last 24 hours): Temp Pulse Resp BP Pulse Ox 98.1 F 79 18 112/63 98 09/10/17 08:24 09/10/17 09:40 09/10/17 08:24 09/10/17 10:47 09/10/17 09:40 - Medications Medications: Current Medications Acetaminophen (Tylenol 325mg Tab) 650 mg PO Q6 PRN PRN Reason: Pain, Mild (1-3) Acetaminophen (Tylenol 325mg Tab) 975 mg PO Q8 [facility] Benzocaine/Menthol (Cepacol Sore Throat) 1 andre PO Q2 PRN PRN Reason: Sore Throat Last Admin: 09/09/17 17:39 Dose: 1 andre Clonazepam (Klonopin) 1 mg PO HS [facility] Last Admin: 09/09/17 22:59 Dose: 1 mg Dextrose (Dextrose 50% Inj) 0 ml IV STAT PRN; Protocol PRN Reason: Hypoglycemia Protocol Dextrose (Glutose 15) 0 gm PO ONCE PRN; Protocol PRN Reason: Hypoglycemia Protocol Enalapril Maleate (Vasotec) 10 mg PO DAILY [facility] Last Admin: 09/10/17 08:07 Dose: Not Given Enoxaparin Sodium (Lovenox) 40 mg SC DAILY [facility] PRN Reason: Protocol Last Admin: 09/10/17 08:09 Dose: 40 mg Furosemide (Lasix) 20 mg PO DAILY [facility] Last Admin: 09/10/17 10:47 Dose: 20 mg Glucagon (Glucagen Diagnostic Kit) 0 mg IM STAT PRN; Protocol PRN Reason: Hypoglycemia Protocol Insulin Human Lispro (Humalog) 0 units SC ACHS [facility] PRN Reason: Protocol Last Admin: 09/10/17 10:59 Dose: Not Given Morphine Sulfate (Morphine) 4 mg IVP Q4 PRN PRN Reason: Pain, severe (8-10) Last Admin: 09/10/17 07:50 Dose: 4 mg Morphine Sulfate (Morphine Immediate Release Tab) 15 mg PO BID [facility] Last Admin: 09/10/17 08:05 Dose: 15 mg Ondansetron HCl (Zofran Tab) 4 mg PO Q6 PRN PRN Reason: Nausea/Vomiting Last Admin: 09/09/17 20:44 Dose: 4 mg Senna/Docusate Sodium (Senokot S 50 Mg-8.6 Mg) 2 tab PO HS [facility] Last Admin: 09/09/17 22:59 Dose: 2 tab - Labs Labs: 09/10/17 05:30 09/10/17 05:30 PT 11.6 Seconds (9.8-13.1) 09/06/17 18:39 INR 1.0 (0.9-1.2) 09/06/17 18:39 APTT 27.0 Seconds (25.6-37.1) 09/06/17 18:39 - Extremities Exam Additional comments: L hip: Aquacel dressing CDI, mild swelling, no drainage sensation intact SP/DP/TN motor intact EHl/FHL/TA/G pedal pulses intact comps soft NT Assessment and Plan (1) Subcapital fracture of left femur Assessment & Plan: POD#1 s/p L hip percutaneous pinning of subcapital femur fracture -pain control -PT/OT WBAT -DVT ppx -discharge planning -above d/w Dr. Jerome in agreement Status: Acute
--- NOTE | 2017-09-10 19:09 | CP.PCM.DIS ---
Provider - Provider Date of Admission: 09/06/17 19:04 Attending physician: Charlette Humphrey MD Time Spent in preparation of Discharge (in minutes): 20 Hospital Course - Lab Results Lab Results: Most Recent Lab Values WBC 5.6 K/uL (4.8-10.8) 09/10/17 05:30 RBC 3.88 Mil/uL (3.80-5.20) 09/10/17 05:30 Hgb 11.1 g/dL (12.0-16.0) L 09/10/17 05:30 Hct 32.6 % (34.0-47.0) L 09/10/17 05:30 MCV 84.0 fl (81.0-99.0) 09/10/17 05:30 MCH 28.7 pg (27.0-31.0) 09/10/17 05:30 MCHC 34.1 g/dL (33.0-37.0) 09/10/17 05:30 RDW 13.9 % (11.5-14.5) 09/10/17 05:30 Plt Count 166 K/uL (130-400) 09/10/17 05:30 MPV 8.0 fl (7.2-11.7) 09/10/17 05:30 Neut % (Auto) 65.9 % (50.0-75.0) 09/10/17 05:30 Lymph % (Auto) 24.6 % (20.0-40.0) 09/10/17 05:30 [place] % (Auto) 5.3 % (0.0-10.0) 09/10/17 05:30 Eos % (Auto) 3.1 % (0.0-4.0) 09/10/17 05:30 Baso % (Auto) 1.1 % (0.0-2.0) 09/10/17 05:30 Neut # (Auto) 3.7 K/uL (1.8-7.0) 09/10/17 05:30 Lymph # (Auto) 1.4 K/uL (1.0-4.3) 09/10/17 05:30 [place] # (Auto) 0.3 K/uL (0.0-0.8) 09/10/17 05:30 Eos # (Auto) 0.2 K/uL (0.0-0.7) 09/10/17 05:30 Baso # (Auto) 0.1 K/uL (0.0-0.2) 09/10/17 05:30 PT 11.6 Seconds (9.8-13.1) 09/06/17 18:39 INR 1.0 (0.9-1.2) 09/06/17 18:39 APTT 27.0 Seconds (25.6-37.1) 09/06/17 18:39 Sodium 140 mmol/l (132-148) 09/10/17 05:30 Potassium 4.0 MMOL/L (3.6-5.0) 09/10/17 05:30 Chloride 101 mmol/L (98-107) 09/10/17 05:30 Carbon Dioxide 30 mmol/L (22-30) 09/10/17 05:30 Anion Gap 13 (10-20) 09/10/17 05:30 BUN 9 mg/dl (7-17) 09/10/17 05:30 Creatinine 0.5 mg/dl (0.7-1.2) L 09/10/17 05:30 Est GFR ( Amer) > 60 09/10/17 05:30 Est GFR (Non-Af Amer) > 60 09/10/17 05:30 POC Glucose (mg/dL) 135 mg/dL (65-110) H 09/10/17 15:26 Random Glucose 98 mg/dL (65-105) 09/10/17 05:30 Hemoglobin A1c 6.3 % (4.2-6.5) 09/08/17 05:40 Calcium 8.6 mg/dL (8.4-10.2) 09/10/17 05:30 Total Bilirubin 0.7 mg/dl (0.2-1.3) 09/09/17 05:35 AST 20 U/L (14-36) 09/09/17 05:35 ALT 43 U/L (9-52) 09/09/17 05:35 Alkaline Phosphatase 45 U/L (38-126) 09/09/17 05:35 Total Protein 7.0 G/DL (6.3-8.2) 09/09/17 05:35 Albumin 3.7 g/dL (3.5-5.0) 09/09/17 05:35 Globulin 3.3 gm/dL (2.2-3.9) 09/09/17 05:35 Albumin/Globulin Ratio 1.1 (1.0-2.1) 09/09/17 05:35 Urine Color Yellow (YELLOW) 09/06/17 20:06 Urine Clarity Clear (Clear) 09/06/17 20:06 Urine pH 6.0 (5.0-8.0) 09/06/17 20:06 Ur Specific [place] 1.008 (1.003-1.030) 09/06/17 20:06 Urine Protein Negative mg/dL (NEGATIVE) 09/06/17 20:06 Urine Glucose (UA) Neg mg/dL (Normal) 09/06/17 20:06 Urine Ketones Negative mg/dL (NEGATIVE) 09/06/17 20:06 Urine Blood Negative (NEGATIVE) 09/06/17 20:06 Urine Nitrate Negative (NEGATIVE) 09/06/17 20:06 Urine Bilirubin Negative (NEGATIVE) 09/06/17 20:06 Urine Urobilinogen 0.2-1.0 mg/dL (0.2-1.0) 09/06/17 20:06 Ur Leukocyte Esterase Mod [place]io/uL (Negative) 09/06/17 20:06 Urine RBC (Auto) 2 /hpf (0-3) 09/06/17 20:06 Urine Microscopic WBC 12 /hpf (0-5) H 09/06/17 20:06 Ur Squamous Epith Cells 2 /hpf (0-5) 09/06/17 20:06 Urine Bacteria Rare (<OCC) 09/06/17 20:06 Blood Type O POSITIVE 09/06/17 19:04 Antibody Screen Negative 09/06/17 19:04 BBK History Checked Patient has bt 09/06/17 19:04 Discharge Exam - Head Exam Head Exam: NORMAL INSPECTION Discharge Plan - Follow Up Plan Condition: STABLE Disposition: REHAB FACILITY/REHAB UNIT Instructions: Hip Fracture
[2017-09-10] MEDS: Docusate-Senna 50 mg-8.6 mg Tab PO SCH (21:07)
[2017-09-10 21:54] VITALS: BP 130/74; PULSE 72; RESP 20; TEMP 97.9; O2SAT 100
[2017-09-11] MEDS ORDERED: Bisacodyl 5mg EC Tab PO SCH (09:00)
== END 2017-09-10 21:40 | DRG 482 ==
LOC: H.ER 16:13 → H.ERHOLD 19:04 → H.MEDSURG1 22:15
PROVIDERS: ADMIT Family Medicine; ATTEND Family Medicine
PROC: 0QS734Z Reposition Left Upper Femur with Internal Fixation Device, Percutaneous Approach (ICD-10-PCS; principal; 2017-09-09 07:45)
PROC: 3E0T3BZ Introduction of Anesthetic Agent into Peripheral Nerves and Plexi, Percutaneous Approach (ICD-10-PCS; 2017-09-09 07:45)
DX: S72.012A Unspecified intracapsular fracture of left femur, initial encounter for closed fracture (principal); W01.0XXA Fall on same level from slipping, tripping and stumbling without subsequent striking against object, initial encounter; Z79.84 Long term (current) use of oral hypoglycemic drugs; Z85.3 Personal history of malignant neoplasm of breast; Z91.81 History of falling; Z92.3 Personal history of irradiation; J02.9 Acute pharyngitis, unspecified; R06.2 Wheezing; E11.9 Type 2 diabetes mellitus without complications; E78.00 Pure hypercholesterolemia, unspecified; F17.210 Nicotine dependence, cigarettes, uncomplicated; F41.9 Anxiety disorder, unspecified; I10 Essential (primary) hypertension; I44.30 Unspecified atrioventricular block; R50.9 Fever, unspecified

== ENCOUNTER 2017-09-10 19:03 | Inpatient (IN) | payer OTHER, MEDICAID ==
[2017-09-10 21:53] VITALS: BMI 23.3
[2017-09-10] MEDS ORDERED: Benzocaine/Menthol (Cepacol) Lozenge PO PRN (23:25)
[2017-09-11 06:49] LABS: BASO % 0.6 % (0.0-2.0); EOS # 0.3 K/uL (0.0-0.7); EOS % 7.1 % (0.0-4.0); HEMOGLOBIN 11.6 g/dL (12.0-16.0); LYMPH # 1.1 K/uL (1.0-4.3); LYMPH % 24.1 % (20.0-40.0); MEAN CELL VOLUME 83.9 fl (81.0-99.0); MEAN CORPUSCULAR HEMOGLOBIN 27.7 pg (27.0-31.0); MEAN CORPUSCULAR HGB CONC 33.1 g/dL (33.0-37.0); MEAN PLATELET VOLUME 7.7 fl (7.2-11.7); MONO # 0.3 K/uL (0.0-0.8); MONO % 7.2 % (0.0-10.0); NEUT # 2.8 K/uL (1.8-7.0); RBC 4.17 Mil/uL (3.80-5.20); RED CELL DISTRIBUTION WIDTH 13.9 % (11.5-14.5); WHITE BLOOD COUNT 4.6 K/uL (4.8-10.8)
--- NOTE | 2017-09-11 07:33 | CP.PCM.PN ---
Subjective - Date & Time of Evaluation Date of Evaluation: 09/11/17 Time of Evaluation: 07:33 - Subjective Subjective: Patient seen and examined OOB to wheelchair comfortable. Pain well controlled. No new complaints. Objective - Vital Signs/Intake and Output Vital Signs (last 24 hours): Temp Pulse Resp BP Pulse Ox 97.3 F L 77 20 142/64 98 09/10/17 22:28 09/10/17 22:29 09/10/17 22:29 09/10/17 22:28 09/10/17 22:29 - Medications Medications: Current Medications Acetaminophen (Tylenol 325mg Tab) 975 mg PO Q8 PRN PRN Reason: Pain, moderate (4-7) Benzocaine/Menthol (Cepacol Sore Throat) 1 andre PO Q2 PRN PRN Reason: Sore Throat Clonazepam (Klonopin) 1 mg PO HS [facility] Enalapril Maleate (Vasotec) 10 mg PO DAILY [facility] Enoxaparin Sodium (Lovenox) 40 mg SC DAILY [facility] PRN Reason: Protocol Furosemide (Lasix) 20 mg PO DAILY [facility] Morphine Sulfate (Morphine Immediate Release Tab) 15 mg PO BID [facility] Senna/Docusate Sodium (Senokot S 50 Mg-8.6 Mg) 2 tab PO HS [facility] - Labs Labs: 09/11/17 06:20 - Extremities Exam Additional comments: L hip: aquacel dressing CDI, mild swelling and tenderness, dressings taken down revealing wound CDI with nylon sutures sensation intact SP/DP/TN motor intact EHL/FHL/TA/G pedal pulses intact comps soft NT Assessment and Plan (1) Subcapital fracture of left femur Assessment & Plan: POD#2 s/p L hip fracture percutaneous pinning -DVT ppx -PT/OT WBAT -Dry dresssings changed -orthopedically stable -above d/w Dr. Jerome in agreement Status: Acute
[2017-09-11] MEDS: Enoxaparin 40 mg Syringe SC SCH (08:31)
[2017-09-11] MEDS ORDERED: Morphine 15 mg Immediate Release Tab PO SCH (09:00)
--- NOTE | 2017-09-11 10:03 | CP.PCM.HP ---
History of Present Illness - History of Present Illness History of Present Illness: 82 y/o F with PMH of DMII, HTN and Anxiety admitted to TCU for management of, s/ p POD3, Left hip percutaneous pinning of subcapital fx on 09/09/17. Patient had normal post op period, denies any left hip pain, chest pain, SOB, abdominal pain , urinary symptoms or weakness. Patient is tolerating PO intake, voiding freely , No BM post op, afebrile and pain is well controlled. PMD: Dr. Abdullahi Martinez PMH: NIDDM2, anxiety, HTN, breast cancer, TB, s/p POD3, Left hip percutaneous pinning of subcapital fx on 09/09/17 meds: see med list allergies: NKDA PSH: 2017 right hip ORIF, 2014 right ankle ORIF, breast lumpectomy, thoracic surgery, s/p Left hip percutaneous pinning of subcapital fx on 09/09/17 Fam: non-contributory SOC: smokes 1 pack/3 days, smokes on and off, smoking since age 19, denies alcohol and drugs ROS: 12 points assessed and negative unless otherwise reported in HPI Present on Admission - Present on Admission Any Indicators Present on Admission: No History of DVT/PE: No History of Uncontrolled Diabetes: No Urinary Catheter: No Decubitus Ulcer Present: No Past Patient History - Past Medical History & Family History Past Medical History?: Yes - Past Social History Smoking Status: Former Smoker - CARDIAC Hx Cardiac Disorders: Yes Hx Hypercholesterolemia: Yes Hx Hypertension: Yes - PULMONARY Hx Respiratory Disorders: No - NEUROLOGICAL Hx Neurological Disorder: No - HEENT Hx HEENT Problems: Yes Other/Comment: wears eye glasses - RENAL Hx Chronic Kidney Disease: No - ENDOCRINE/METABOLIC Hx Endocrine Disorders: Yes Hx Diabetes Mellitus Type 2: Yes - HEMATOLOGICAL/ONCOLOGICAL Hx Blood Disorders: Yes - INTEGUMENTARY Hx Dermatological Problems: No - MUSCULOSKELETAL/RHEUMATOLOGICAL Hx Musculoskeletal Disorders: Yes Hx Falls: Yes Hx Fractures: Yes - GASTROINTESTINAL Hx Gastrointestinal Disorders: No - GENITOURINARY/GYNECOLOGICAL Hx Genitourinary Disorders: No - PSYCHIATRIC Hx Anxiety: Yes Hx Substance Use: No - SURGICAL HISTORY Hx Surgeries: Yes Hx Mastectomy: Yes (right) Hx Tonsillectomy: Yes Other/Comment: ORIF on ankle .left hip FX . - ANESTHESIA Hx Anesthesia: Yes Hx Anesthesia Reactions: No Hx Malignant Hyperthermia: No Meds Allergies/Adverse Reactions: Allergies Allergy/AdvReac Type Severity Reaction Status Date / Time No Known Allergies Allergy Verified 05/25/14 15:13 Physical Exam - Constitutional Appears: No Acute Distress - Head Exam Head Exam: NORMAL INSPECTION - Eye Exam Eye Exam: Normal appearance Pupil Exam: NORMAL ACCOMODATION - ENT Exam ENT Exam: Mucous Membranes Moist - Neck Exam Neck exam: Positive for: Normal Inspection - Respiratory Exam Respiratory Exam: Clear to Auscultation Bilateral, NORMAL BREATHING PATTERN - Cardiovascular Exam Cardiovascular Exam: REGULAR RHYTHM - GI/Abdominal Exam GI & Abdominal Exam: Normal Bowel Sounds - Extremities Exam Additional comments: Left hip: dressing is clean, intact and dry - Back Exam Back exam: NORMAL INSPECTION. absent: CVA tenderness (L), CVA tenderness (R) - Neurological Exam Neurological exam: Alert, CN II-XII Intact, Oriented x3 - Psychiatric Exam Psychiatric exam: Normal Affect - Skin Skin Exam: Dry, Intact, Normal Color, Warm Results - Vital Signs Recent Vital Signs: Last Vital Signs Temp 98.1 F 09/11/17 08:07 Pulse 88 09/11/17 08:07 Resp 20 09/11/17 08:07 BP 128/68 09/11/17 08:31 Pulse Ox 83 L 09/11/17 08:07 - Labs Result Diagrams: 09/11/17 06:20 Labs: Laboratory Results - last 24 hr 09/11/17 09/11/17 05:54 06:20 WBC 4.6 L RBC 4.17 Hgb 11.6 L Hct 35.0 MCV 83.9 MCH 27.7 MCHC 33.1 RDW 13.9 Plt Count 186 MPV 7.7 Neut % (Auto) 61.0 Lymph % (Auto) 24.1 [place] % (Auto) 7.2 Eos % (Auto) 7.1 H Baso % (Auto) 0.6 Neut # (Auto) 2.8 Lymph # (Auto) 1.1 [place] # (Auto) 0.3 Eos # (Auto) 0.3 Baso # (Auto) 0.0 POC Glucose (mg/dL) 123 H Assessment & Plan - Assessment and Plan (Free Text) Assessment: A/P: 82 y/o F with PMH of DMII, HTN and Anxiety admitted for evaluation and treatment of left femoral fracture. Patient is s/p Left hip percutaneous pinning of subcapital fx POD3. Displaced left femoral neck fracture -S/p Left hip percutaneous pinning of subcapital fx () - Afebrile, Stable VS - XR hip: 09/06:acute mildly displaced left femoral neck subcapital fracture, s/p internal fixation w/ 2 screws of right femoral neck - CT hip: 09/07: slightly displaced comminuted left subcapital femoral fracture - CXR: 09/07: No acute changes - EK/2: first dg AV block - Contnue incentive spirometer - Admit to TCU, Continue TCU Pain management - tylenol 650 mg PO Q6h prn, mild - motrin 600 mg PO Q6h prn, moderate - morphine 4 mg IV Q4h prn, severe - morphine 15mg PO BID Fever of unknown etiology - Improved - 101 F (08/08/17), improved after Tylenol - Afebrile, s/p Rocephin - If spikes fever again, possible Bcx - S/p Ancef NIDDM2 - metformin held for now - insulin correction scale - hypoglycemic protocol - HBA1C: 6.3 (09/08/17) HTN - Controlled - Continue home meds, Enalapril Anxiety - klonopin 1mg PO QHS DVT PPX - SCD - Lovenox 40mg SC from tomorrow
[2017-09-11] MEDS: Morphine 15 mg SR Tab PO SCH ×2 (10:04→21:05)
[2017-09-11] MEDS: Docusate-Senna 50 mg-8.6 mg Tab PO SCH (21:06)
[2017-09-12 07:47] LABS: HEMOGLOBIN 11.1 g/dL (12.0-16.0); MEAN CELL VOLUME 84.5 fl (81.0-99.0); MEAN CORPUSCULAR HEMOGLOBIN 27.9 pg (27.0-31.0); RBC 3.99 Mil/uL (3.80-5.20); RED CELL DISTRIBUTION WIDTH 14.4 % (11.5-14.5); WHITE BLOOD COUNT 4.8 K/uL (4.8-10.8)
[2017-09-12 08:17] LABS: ALB/GLOB RATIO 1.1 (1.0-2.1); ALBUMIN 3.5 g/dL (3.5-5.0); ALT/SGPT 27 U/L (9-52); AST/SGOT 34 U/L (14-36); BLOOD UREA NITROGEN 13 mg/dl (7-17); CALCIUM 8.7 mg/dL (8.4-10.2); GFR AFRICAN-AMERICAN > 60; GFR NON-AFRICAN AMERICAN > 60
[2017-09-12] MEDS: Morphine 15 mg SR Tab PO SCH ×2 (08:42→21:37)
[2017-09-12] MEDS: Enoxaparin 40 mg Syringe SC SCH (08:43)
[2017-09-12] MEDS ORDERED: Bisacodyl 5mg EC Tab PO ONE (12:19)
--- NOTE | 2017-09-12 12:23 | CP.PCM.PN ---
Subjective - Date & Time of Evaluation Date of Evaluation: 09/12/17 Time of Evaluation: 12:21 - Subjective Subjective: Patient complaining of constipation and hip pain. Says she needs the morphine and that it controls the pain. Objective - Vital Signs/Intake and Output Vital Signs (last 24 hours): Temp Pulse Resp BP Pulse Ox 97.7 F 79 20 116/73 96 09/12/17 08:00 09/12/17 08:00 09/12/17 08:00 09/12/17 08:00 09/12/17 08:00 - Medications Medications: Current Medications Acetaminophen (Tylenol 325mg Tab) 975 mg PO Q8 PRN PRN Reason: Pain, moderate (4-7) Last Admin: 09/12/17 11:24 Dose: 975 mg Benzocaine/Menthol (Cepacol Sore Throat) 1 andre PO Q2 PRN PRN Reason: Sore Throat Bisacodyl (Dulcolax) 10 mg PO ONCE ONE Stop: 09/12/17 12:20 Clonazepam (Klonopin) 1 mg PO HS [facility] Last Admin: 09/11/17 22:19 Dose: 1 mg Enalapril Maleate (Vasotec) 10 mg PO DAILY [facility] Last Admin: 09/12/17 08:44 Dose: 10 mg Enoxaparin Sodium (Lovenox) 40 mg SC DAILY [facility] PRN Reason: Protocol Last Admin: 09/12/17 08:43 Dose: 40 mg Morphine Sulfate (Morphine Extended Release Tab) 15 mg PO Q12 [facility] Last Admin: 09/12/17 08:42 Dose: 15 mg Senna/Docusate Sodium (Senokot S 50 Mg-8.6 Mg) 2 tab PO HS [facility] Last Admin: 09/11/17 21:06 Dose: 2 tab - Labs Labs: 09/12/17 07:36 09/12/17 07:36 - Extremities Exam Additional comments: left hip: swelling decreased. no drainage, no erythema, calves soft NT neg homans +ROM ankle/toes, sensation intact Assessment and Plan (1) Subcapital fracture of left femur Assessment & Plan: POD#3 s/p left hip pinning -recommend taper narcotics -dulcolax -encourage fiber, PO fluids, ambulation, out of bed -PT/OT -VTE proph -ortho stable -d/w Dr. Jerome, agrees with above Status: Acute
--- NOTE | 2017-09-12 15:12 | CP.PCM.CON ---
History of Present Illness - History of Present Illness History of Present Illness: Dr Valle PMR consultation on Zehra Rae, born 1935 who has been admitted to [facility] for TCU rehab following a fall that lead to a left hip fracture necessitating ORIF. Post op doing well. Ambulating to the bathroom with walker. She lives home alone though. 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 ++ constipation with no BM post op no weakness, arm or knee pain. no dizziness Review of Systems - Constitutional Constitutional: absent: Anorexia, Chills - EENT Eyes: absent: Blind Spots, Blurred Vision, Change in Vision Ears: absent: Disequilibrium Nose/Mouth/Throat: absent: Nasal Congestion - Cardiovascular Cardiovascular: absent: Chest Pain, Dyspnea on Exertion - Respiratory Respiratory: absent: Cough - Gastrointestinal Gastrointestinal: Constipation. absent: Belching - Integumentary Integumentary: Other (left hip incision) - Neurological Neurological: absent: Abnormal Hearing, Abnormal Movements, Confusion Past Patient History - Past Medical History & Family History Past Medical History?: Yes - Past Social History Smoking Status: Light Smoker < 10 Cigarettes Daily Chewing Tobacco Use: No Alcohol: None Home Situation {Lives}: Alone (has a EBD TEACHER) - CARDIAC Hx Cardiac Disorders: Yes Hx Hypercholesterolemia: Yes Hx Hypertension: Yes - PULMONARY Hx Respiratory Disorders: No - NEUROLOGICAL Hx Neurological Disorder: No - HEENT Hx HEENT Problems: Yes Other/Comment: wears eye glasses - RENAL Hx Chronic Kidney Disease: No - ENDOCRINE/METABOLIC Hx Endocrine Disorders: Yes Hx Diabetes Mellitus Type 2: Yes - HEMATOLOGICAL/ONCOLOGICAL Hx Blood Disorders: Yes - INTEGUMENTARY Hx Dermatological Problems: No - MUSCULOSKELETAL/RHEUMATOLOGICAL Hx Musculoskeletal Disorders: Yes Hx Falls: Yes Hx Fractures: Yes - GASTROINTESTINAL Hx Gastrointestinal Disorders: No - GENITOURINARY/GYNECOLOGICAL Hx Genitourinary Disorders: No - PSYCHIATRIC Hx Anxiety: Yes Hx Substance Use: No - SURGICAL HISTORY Hx Surgeries: Yes Hx Mastectomy: Yes (right) Hx Tonsillectomy: Yes Other/Comment: ORIF on ankle .left hip FX . - ANESTHESIA Hx Anesthesia: Yes Hx Anesthesia Reactions: No Hx Malignant Hyperthermia: No Meds Allergies/Adverse Reactions: Allergies Allergy/AdvReac Type Severity Reaction Status Date / Time No Known Allergies Allergy Verified 05/25/14 15:13 - Medications Medications: Current Medications Acetaminophen (Tylenol 325mg Tab) 975 mg PO Q8 PRN PRN Reason: Pain, moderate (4-7) Last Admin: 09/12/17 11:24 Dose: 975 mg Benzocaine/Menthol (Cepacol Sore Throat) 1 andre PO Q2 PRN PRN Reason: Sore Throat Clonazepam (Klonopin) 1 mg PO [facility] Last Admin: 09/11/17 22:19 Dose: 1 mg Enalapril Maleate (Vasotec) 10 mg PO DAILY [facility] Last Admin: 09/12/17 08:44 Dose: 10 mg Enoxaparin Sodium (Lovenox) 40 mg SC DAILY [facility] PRN Reason: Protocol Last Admin: 09/12/17 08:43 Dose: 40 mg Lactulose (Enulose) 20 gm PO DAILY PRN PRN Reason: Constipation Morphine Sulfate (Morphine Extended Release Tab) 15 mg PO Q12 [facility] Last Admin: 09/12/17 08:42 Dose: 15 mg Morphine Sulfate (Morphine Immediate Release Tab) 15 mg PO Q6 PRN PRN Reason: pain 8-10/10 Senna/Docusate Sodium (Senokot S 50 Mg-8.6 Mg) 2 tab PO [facility] Last Admin: 09/11/17 21:06 Dose: 2 tab Physical Exam - Constitutional Appears: Well, Non-toxic, No Acute Distress - Head Exam Head Exam: ATRAUMATIC, NORMAL INSPECTION, NORMOCEPHALIC - Eye Exam Eye Exam: EOMI Pupil Exam: NORMAL ACCOMODATION - ENT Exam ENT Exam: Mucous Membranes Moist - Respiratory Exam Respiratory Exam: NORMAL BREATHING PATTERN - Cardiovascular Exam Cardiovascular Exam: REGULAR RHYTHM - GI/Abdominal Exam GI & Abdominal Exam: absent: Firm - Extremities Exam Extremities exam: Positive for: full ROM. Negative for: calf tenderness - Neurological Exam Neurological exam: Alert, CN II-XII Intact, Oriented x3 - Psychiatric Exam Psychiatric exam: Normal Affect, Normal Mood - Skin Skin Exam: Warm Results - Vital Signs Recent Vital Signs: Last Vital Signs Temp 97.7 F 09/12/17 08:00 Pulse 79 09/12/17 08:00 Resp 20 09/12/17 08:00 BP 116/73 09/12/17 08:00 Pulse Ox 96 09/12/17 08:00 - Labs Result Diagrams: 09/12/17 07:36 09/12/17 07:36 Labs: Laboratory Results - last 24 hr 09/11/17 09/11/17 09/12/17 16:30 21:03 06:48 WBC RBC Hgb Hct MCV MCH MCHC RDW Plt Count Sodium Potassium Chloride Carbon Dioxide Anion Gap BUN Creatinine Est GFR ( Amer) Est GFR (Non-Af Amer) POC Glucose (mg/dL) 110 172 H 107 Random Glucose Calcium Total Bilirubin AST ALT Alkaline Phosphatase Total Protein Albumin Globulin Albumin/Globulin Ratio 09/12/17 09/12/17 09/12/17 07:36 07:36 11:33 WBC 4.8 RBC 3.99 Hgb 11.1 L Hct 33.7 L MCV 84.5 MCH 27.9 MCHC 33.0 RDW 14.4 Plt Count 202 Sodium 141 Potassium 4.0 Chloride 100 Carbon Dioxide 32 H Anion Gap 13 BUN 13 Creatinine 0.5 L Est GFR ( Amer) > 60 Est GFR (Non-Af Amer) > 60 POC Glucose (mg/dL) 105 Random Glucose 111 H Calcium 8.7 Total Bilirubin 0.5 AST 34 ALT 27 Alkaline Phosphatase 47 Total Protein 6.8 Albumin 3.5 Globulin 3.2 Albumin/Globulin Ratio 1.1 Assessment & Plan - Assessment and Plan (Free Text) Assessment: PT/OT to continue to help increase functional independence Pain: I will add a prn mars medication for 8-10/10 pain as well Vascular: no evidence of DVT GI: + constipation, adjusted bowel regimen She may need extended therapies Patient continues to be an excellent TCU rehabilitation candidate and will have continued focused PT, OT and recreational therapy to help facilitate a safe and appropriate d/c plan
[2017-09-12] MEDS: Morphine 15 mg Immediate Release Tab PO PRN (17:22)
[2017-09-12] MEDS: Docusate-Senna 50 mg-8.6 mg Tab PO SCH (21:35)
[2017-09-13] MEDS: Morphine 15 mg SR Tab PO SCH ×2 (08:41→20:06)
[2017-09-13] MEDS: Enoxaparin 40 mg Syringe SC SCH (08:42)
[2017-09-13] MEDS: Morphine 15 mg Immediate Release Tab PO PRN (16:09)
[2017-09-13] MEDS: Docusate-Senna 50 mg-8.6 mg Tab PO SCH (22:34)
--- NOTE | 2017-09-14 05:34 | CON ---
DATE: 09/13/2017 HISTORY OF PRESENT ILLNESS: The patient is postop day #4 status post left hip closed reduction and percutaneous pinning. Currently, the patient has minimal pain. She has been walking with the use of a walker. Denies any fever or chills. Denies any pain in any of the extremity or joint. PHYSICAL EXAMINATION: EXTREMITIES: The patient's incision is clean, dry, and intact and she is neurovascularly intact distally. ASSESSMENT AND PLAN: An 82-year-old female, postop day #4, status post left hip closed reduction and percutaneous pinning. TREATMENT: The patient may be weightbearing as tolerated and stable for discharge once cleared from Physical Therapy and follow up in my office in 10 days. Rigoberto Jerome MD
[2017-09-14 08:13] VITALS: RESP 20
[2017-09-14] MEDS: Morphine 15 mg SR Tab PO SCH ×2 (08:57→21:22)
[2017-09-14] MEDS: Enoxaparin 40 mg Syringe SC SCH (08:57)
[2017-09-14] MEDS: Docusate-Senna 50 mg-8.6 mg Tab PO SCH (21:23)
[2017-09-15 06:49] LABS: BASO % 0.8 % (0.0-2.0); EOS # 0.3 K/uL (0.0-0.7); EOS % 4.5 % (0.0-4.0); HEMOGLOBIN 12.2 g/dL (12.0-16.0); LYMPH % 33.3 % (20.0-40.0); MEAN CELL VOLUME 84.5 fl (81.0-99.0); MEAN CORPUSCULAR HEMOGLOBIN 27.6 pg (27.0-31.0); MEAN CORPUSCULAR HGB CONC 32.6 g/dL (33.0-37.0); MEAN PLATELET VOLUME 7.8 fl (7.2-11.7); MONO # 0.5 K/uL (0.0-0.8); MONO % 8.4 % (0.0-10.0); NEUT # 3.1 K/uL (1.8-7.0); NRBC % 0.1 % (0.0-0.0); RBC 4.42 Mil/uL (3.80-5.20); RED CELL DISTRIBUTION WIDTH 14.4 % (11.5-14.5); WHITE BLOOD COUNT 5.9 K/uL (4.8-10.8)
[2017-09-15 07:07] LABS: ALB/GLOB RATIO 1.1 (1.0-2.1); ALBUMIN 4.1 g/dL (3.5-5.0); ALT/SGPT 47 U/L (9-52); AST/SGOT 32 U/L (14-36); BLOOD UREA NITROGEN 12 mg/dl (7-17); CALCIUM 9.2 mg/dL (8.4-10.2); GFR AFRICAN-AMERICAN > 60; GFR NON-AFRICAN AMERICAN > 60
--- NOTE | 2017-09-15 08:06 | CP.PCM.PN ---
Subjective - Date & Time of Evaluation Date of Evaluation: 09/15/17 Time of Evaluation: 07:45 - Subjective Subjective: Patient seen and examined at bedside comfortable. Pain well controlled. Notes that she would like to be discharged to attend . No new complaints. Objective - Vital Signs/Intake and Output Vital Signs (last 24 hours): Temp Pulse Resp BP Pulse Ox 99 F 73 20 128/71 92 L 09/14/17 22:00 09/14/17 21:28 09/14/17 21:28 09/14/17 21:28 09/14/17 21:28 - Medications Medications: Current Medications Acetaminophen (Tylenol 325mg Tab) 975 mg PO Q8 PRN PRN Reason: Pain, moderate (4-7) Last Admin: 09/12/17 11:24 Dose: 975 mg Benzocaine/Menthol (Cepacol Sore Throat) 1 andre PO Q2 PRN PRN Reason: Sore Throat Clonazepam (Klonopin) 1 mg PO HS [facility] Last Admin: 09/14/17 21:23 Dose: 1 mg Enoxaparin Sodium (Lovenox) 40 mg SC DAILY [facility] PRN Reason: Protocol Last Admin: 09/14/17 08:57 Dose: 40 mg Lactulose (Enulose) 20 gm PO DAILY PRN PRN Reason: Constipation Morphine Sulfate (Morphine Extended Release Tab) 15 mg PO Q12 [facility] Last Admin: 09/14/17 21:22 Dose: 15 mg Morphine Sulfate (Morphine Immediate Release Tab) 15 mg PO Q6 PRN PRN Reason: pain 8-10 Last Admin: 09/13/17 16:09 Dose: 15 mg Senna/Docusate Sodium (Senokot S 50 Mg-8.6 Mg) 2 tab PO HS [facility] Last Admin: 09/14/17 21:23 Dose: 2 tab - Labs Labs: 09/15/17 06:00 09/15/17 06:00 - Extremities Exam Additional comments: L hip: dressing CDI, mild swelling and tenderness sensation intact SP/DP/TN motor intact EHL/FHL/TA/G pedal pulses intact comps soft NT Assessment and Plan (1) Subcapital fracture of left femur Assessment & Plan: POD#6 s/p L hip percutaneous pinning doing well -PT/OT WBAT with assistive device -Dressings changed -orthopedically stable for discharge to home to continue with outpatient PT -ok to d/c with ASA 325mg BID for DVT ppx instead of lovenox -above d/w Dr. Hassan in agreement Status: Acute
[2017-09-15] MEDS: Morphine 15 mg SR Tab PO SCH ×2 (08:07→21:02)
[2017-09-15] MEDS: Enoxaparin 40 mg Syringe SC SCH (08:07)
--- NOTE | 2017-09-15 09:50 | CP.PCM.PN ---
Subjective - Date & Time of Evaluation Date of Evaluation: 09/15/17 Time of Evaluation: 09:45 - Subjective Subjective: Patient is s/p Left hip percutaneous pinning of subcapital fx POD7. Patient seen and examined this morning, NAD. Patient seems in good mood, states " I would like to go home today". Denies any acute events overnight, tolerating PO, voiding freely, Denies SOB, dizziness, chest pain, headache, abdominal pain , weakness or urinary symptoms. PT present in room "Not ready for discharge, need more PT", left hip dressing changed today. Objective - Vital Signs/Intake and Output Vital Signs (last 24 hours): Temp Pulse Resp BP Pulse Ox 98.1 F 68 20 113/67 92 L 09/15/17 08:39 09/15/17 08:39 09/15/17 08:39 09/15/17 08:39 09/15/17 08:39 - Medications Medications: Current Medications Acetaminophen (Tylenol 325mg Tab) 975 mg PO Q8 PRN PRN Reason: Pain, moderate (4-7) Last Admin: 09/12/17 11:24 Dose: 975 mg Benzocaine/Menthol (Cepacol Sore Throat) 1 andre PO Q2 PRN PRN Reason: Sore Throat Clonazepam (Klonopin) 1 mg PO HS [facility] Last Admin: 09/14/17 21:23 Dose: 1 mg Enoxaparin Sodium (Lovenox) 40 mg SC DAILY [facility] PRN Reason: Protocol Last Admin: 09/15/17 08:07 Dose: 40 mg Lactulose (Enulose) 20 gm PO DAILY PRN PRN Reason: Constipation Morphine Sulfate (Morphine Extended Release Tab) 15 mg PO Q12 [facility] Last Admin: 09/15/17 08:07 Dose: 15 mg Morphine Sulfate (Morphine Immediate Release Tab) 15 mg PO Q6 PRN PRN Reason: pain 8-10 Last Admin: 09/13/17 16:09 Dose: 15 mg Senna/Docusate Sodium (Senokot S 50 Mg-8.6 Mg) 2 tab PO HS [facility] Last Admin: 09/14/17 21:23 Dose: 2 tab - Labs Labs: 09/15/17 06:00 09/15/17 06:00 - Constitutional Appears: No Acute Distress - Eye Exam Eye Exam: Normal appearance - ENT Exam ENT Exam: Mucous Membranes Moist - Neck Exam Neck Exam: Full ROM, Normal Inspection - Respiratory Exam Respiratory Exam: Clear to Ausculation Bilateral, NORMAL BREATHING PATTERN. absent: Accessory Muscle Use, Chest Wall Tenderness, Decreased Breath Sounds, Wheezes - Cardiovascular Exam Cardiovascular Exam: REGULAR RHYTHM - GI/Abdominal Exam GI & Abdominal Exam: Soft, Normal Bowel Sounds. absent: Rigid, Tenderness, Organomegaly, Pulsatile Mass, Rebound - Extremities Exam Additional comments: Left hip dressing, clean/dry/intact Sensory intact b/l LEs Able to move toes, good pulses b/l - Back Exam Back Exam: NORMAL INSPECTION. absent: CVA tenderness (L), CVA tenderness (R) - Neurological Exam Neurological Exam: Alert, Awake, Oriented x3 - Psychiatric Exam Psychiatric exam: Normal Affect, Normal Mood - Skin Skin Exam: Dry, Intact, Normal Color, Warm Assessment and Plan - Assessment and Plan (Free Text) Assessment: A/P: 82 y/o F with PMH of DMII, HTN and Anxiety admitted for evaluation and treatment of left femoral fracture. Patient is s/p Left hip percutaneous pinning of subcapital fx POD7. Displaced left femoral neck fracture -S/p Left hip percutaneous pinning of subcapital fx () - Afebrile, Stable VS - XR hip: 09/06:acute mildly displaced left femoral neck subcapital fracture, s/p internal fixation w/ 2 screws of right femoral neck - CT hip: 09/07: slightly displaced comminuted left subcapital femoral fracture - CXR: 09/07: No acute changes - EK/2: first dg AV block - Contnue incentive spirometer - Continue TCU management - Follow up IMMUNOFIXATION to rule out MM Pain management - tylenol 975 mg PO Q8h prn, - morphine E 15mg PO BID - morphine I mg PO Q6H PRN Fever of unknown etiology - Improved - 101 F (08/08/17), improved after Tylenol - Afebrile, s/p Rocephin - If spikes fever again, possible Bcx - S/p Ancef NIDDM2 - metformin held for now - insulin correction scale - hypoglycemic protocol - HBA1C: 6.3 (09/08/17) HTN - Controlled - Continue home meds, Enalapril Anxiety - klonopin 1mg PO QHS DVT PPX - SCD - Lovenox 40mg SC from tomorrow
--- NOTE | 2017-09-15 10:05 | CP.PCM.PN ---
Subjective - Date & Time of Evaluation Date of Evaluation: 09/15/17 Time of Evaluation: 10:03 - Subjective Subjective: Patient seen in the room doing well no pain at this time still with constipation but refused lactulose She can be cleared to go with outdoor training and attend of relative which is across the street continue with current care Objective - Vital Signs/Intake and Output Vital Signs (last 24 hours): Temp Pulse Resp BP Pulse Ox 98.1 F 68 20 113/67 92 L 09/15/17 08:39 09/15/17 08:39 09/15/17 08:39 09/15/17 08:39 09/15/17 08:39 - Medications Medications: Current Medications Acetaminophen (Tylenol 325mg Tab) 975 mg PO Q8 PRN PRN Reason: Pain, moderate (4-7) Last Admin: 09/12/17 11:24 Dose: 975 mg Benzocaine/Menthol (Cepacol Sore Throat) 1 andre PO Q2 PRN PRN Reason: Sore Throat Clonazepam (Klonopin) 1 mg PO HS [facility] Last Admin: 09/14/17 21:23 Dose: 1 mg Enoxaparin Sodium (Lovenox) 40 mg SC DAILY [facility]AV PRN Reason: Protocol Last Admin: 09/15/17 08:07 Dose: 40 mg Lactulose (Enulose) 20 gm PO DAILY PRN PRN Reason: Constipation Morphine Sulfate (Morphine Extended Release Tab) 15 mg PO Q12 [facility] Last Admin: 09/15/17 08:07 Dose: 15 mg Morphine Sulfate (Morphine Immediate Release Tab) 15 mg PO Q6 PRN PRN Reason: pain -01/14 Last Admin: 09/13/17 16:09 Dose: 15 mg Senna/Docusate Sodium (Senokot S 50 Mg-8.6 Mg) 2 tab PO HS [facility] Last Admin: 09/14/17 21:23 Dose: 2 tab - Labs Labs: 09/15/17 06:00 09/15/17 06:00
[2017-09-15] MEDS: Morphine 15 mg Immediate Release Tab PO PRN (16:11)
[2017-09-15] MEDS: Docusate-Senna 50 mg-8.6 mg Tab PO SCH (21:02)
[2017-09-16] MEDS: Enoxaparin 40 mg Syringe SC SCH (08:50)
[2017-09-16] MEDS: Morphine 15 mg SR Tab PO SCH ×2 (08:55→20:02)
[2017-09-16] MEDS: Morphine 15 mg Immediate Release Tab PO PRN (12:20)
[2017-09-16] MEDS: Docusate-Senna 50 mg-8.6 mg Tab PO SCH (22:09)
[2017-09-17] MEDS: Morphine 15 mg SR Tab PO SCH (09:04)
[2017-09-17] MEDS: Enoxaparin 40 mg Syringe SC SCH (09:05)
[2017-09-17 09:33] VITALS: BP 119/60; PULSE 78; TEMP 97.7; O2SAT 92
--- NOTE | 2017-09-17 10:10 | CP.PCM.DIS ---
Provider - Provider Date of Admission: 09/10/17 21:54 Attending physician: Charlette Humphrey MD Primary care physician: Dr. Martinez Consults: Ortho, Dr. Jerome Physiatry SW Time Spent in preparation of Discharge (in minutes): 40 Diagnosis - Discharge Diagnosis (1) Accidental fall Status: Acute (2) S/P ORIF (open reduction internal fixation) fracture Status: Acute (3) Subcapital fracture of left femur Status: Acute Hospital Course - Lab Results Lab Results: Most Recent Lab Values WBC 5.9 K/uL (4.8-10.8) 09/15/17 06:00 RBC 4.42 Mil/uL (3.80-5.20) 09/15/17 06:00 Hgb 12.2 g/dL (12.0-16.0) 09/15/17 06:00 Hct 37.3 % (34.0-47.0) 09/15/17 06:00 MCV 84.5 fl (81.0-99.0) 09/15/17 06:00 MCH 27.6 pg (27.0-31.0) 09/15/17 06:00 MCHC 32.6 g/dL (33.0-37.0) L 09/15/17 06:00 RDW 14.4 % (11.5-14.5) 09/15/17 06:00 Plt Count 261 K/uL (130-400) 09/15/17 06:00 MPV 7.8 fl (7.2-11.7) 09/15/17 06:00 Neut % (Auto) 53.0 % (50.0-75.0) 09/15/17 06:00 Lymph % (Auto) 33.3 % (20.0-40.0) 09/15/17 06:00 Bond % (Auto) 8.4 % (0.0-10.0) 09/15/17 06:00 Eos % (Auto) 4.5 % (0.0-4.0) H 09/15/17 06:00 Baso % (Auto) 0.8 % (0.0-2.0) 09/15/17 06:00 Neut # (Auto) 3.1 K/uL (1.8-7.0) 09/15/17 06:00 Lymph # (Auto) 2.0 K/uL (1.0-4.3) 09/15/17 06:00 Bond # (Auto) 0.5 K/uL (0.0-0.8) 09/15/17 06:00 Eos # (Auto) 0.3 K/uL (0.0-0.7) 09/15/17 06:00 Baso # (Auto) 0.0 K/uL (0.0-0.2) 09/15/17 06:00 Sodium 138 mmol/l (132-148) 09/15/17 06:00 Potassium 4.1 MMOL/L (3.6-5.0) 09/15/17 06:00 Chloride 99 mmol/L (98-107) 09/15/17 06:00 Carbon Dioxide 29 mmol/L (22-30) 09/15/17 06:00 Anion Gap 14 (10-20) 09/15/17 06:00 BUN 12 mg/dl (7-17) 09/15/17 06:00 Creatinine 0.5 mg/dl (0.7-1.2) L 09/15/17 06:00 Est GFR ( Amer) > 60 09/15/17 06:00 Est GFR (Non-Af Amer) > 60 09/15/17 06:00 POC Glucose (mg/dL) 107 mg/dL (65-110) 09/17/17 06:14 Random Glucose 113 mg/dL (65-105) H 09/15/17 06:00 Calcium 9.2 mg/dL (8.4-10.2) 09/15/17 06:00 Total Bilirubin 0.7 mg/dl (0.2-1.3) 09/15/17 06:00 AST 32 U/L (14-36) 09/15/17 06:00 ALT 47 U/L (9-52) 09/15/17 06:00 Alkaline Phosphatase 56 U/L (38-126) 09/15/17 06:00 Total Protein 7.8 G/DL (6.3-8.2) 09/15/17 06:00 Albumin 4.1 g/dL (3.5-5.0) 09/15/17 06:00 Globulin 3.6 gm/dL (2.2-3.9) 09/15/17 06:00 Albumin/Globulin Ratio 1.1 (1.0-2.1) 09/15/17 06:00 Serum Immunofixation Detected (Not Detected) H 09/14/17 05:20 - Hospital Course Hospital Course: 82 y/o F with PMH of DMII, HTN and Anxiety, s/p Left hip percutaneous pinning of subcapital fx on 09/09/17. Patient was transferred to TCU, normal post op progression. Patient will be discharged home with follow up ortho appt for stitches removal, c/w ASA 325 BID for DVT ppx as per ortho. Patient was discharged home with ASA, Percocet and PT referral rx, Hold BP medicatiions ( inpatient BP controlled w/o medications), c/w DM medications. Follow up PMD. Discharge Exam - Head Exam Head Exam: ATRAUMATIC, NORMAL INSPECTION, NORMOCEPHALIC - Eye Exam Eye Exam: Normal appearance Pupil Exam: NORMAL ACCOMODATION - ENT Exam ENT Exam: Mucous Membranes Moist - Respiratory Exam Respiratory Exam: Clear to PA & Lateral, NORMAL BREATHING PATTERN - Cardiovascular Exam Cardiovascular Exam: REGULAR RHYTHM - GI/Abdominal Exam GI & Abdominal Exam: Normal Bowel Sounds, Soft. absent: Tenderness - Extremities Exam Additional comments: Left hip repair, few stitches seen, no discharg, erythema or sign of infections. - Back Exam Back exam: NORMAL INSPECTION. absent: CVA tenderness (L), CVA tenderness (R) - Neurological Exam Neurological exam: Alert, CN II-XII Intact, Oriented x3, Reflexes Normal - Psychiatric Exam Psychiatric exam: Normal Affect - Skin Skin Exam: Dry, Intact, Normal Color, Warm Discharge Plan - Discharge Medications Prescriptions: Aspirin 325 mg PO BID 30 Days #60 tab oxyCODONE/Acetaminophen [Percocet 5/325 mg Tab] 1 ea PO Q6H #30 tab - Follow Up Plan Condition: GOOD Disposition: HOME/ ROUTINE Additional Instructions: Follow up with Ortho with in 1 to 2 week Follow up with PMD in 1 to 2 weeks Continue PT as instructed Referrals: Rigoberto Jerome MD [Staff Provider] - Abdullahi Martinez MD [Family Provider] -
== END 2017-09-17 15:15 | disposition home health service (06) | DRG 561 ==
LOC: H.TCU 21:54
PROVIDERS: ADMIT Family Medicine; ATTEND Family Medicine
PROC: F07Z9FZ Gait Training/Functional Ambulation Treatment using Assistive, Adaptive, Supportive or Protective Equipment (ICD-10-PCS; principal; 2017-09-10)
PROC: F08Z4FZ Home Management Treatment using Assistive, Adaptive, Supportive or Protective Equipment (ICD-10-PCS; 2017-09-10)
PROC: F07L6FZ Therapeutic Exercise Treatment of Musculoskeletal System - Lower Back / Lower Extremity using Assistive, Adaptive, Supportive or Protective Equipment (ICD-10-PCS; 2017-09-11)
DX: S72.012D Unspecified intracapsular fracture of left femur, subsequent encounter for closed fracture with routine healing (principal); Z98.890 Other specified postprocedural states; I44.0 Atrioventricular block, first degree; E11.9 Type 2 diabetes mellitus without complications; I10 Essential (primary) hypertension; E78.00 Pure hypercholesterolemia, unspecified; F41.9 Anxiety disorder, unspecified; K59.09 Other constipation; R50.9 Fever, unspecified; F17.210 Nicotine dependence, cigarettes, uncomplicated; W18.30XD Fall on same level, unspecified, subsequent encounter; Z79.84 Long term (current) use of oral hypoglycemic drugs; Z85.3 Personal history of malignant neoplasm of breast

== ENCOUNTER 2017-12-19 15:54 | Inpatient (IN) | payer MEDICARE, MEDICAID ==
[2017-12-19 15:54] VITALS: BMI 23.3
[2017-12-19] MEDS ORDERED: Ciprofloxacin 400mg/200ml D5W 400 MG/200 ML BAG IV STA (16:15)
[2017-12-19] MEDS ORDERED: Sodium Chloride 0.9% 1,000 ML IV STA (16:17)
--- NOTE | 2017-12-19 16:20 | ED PDOC ---
HPI: Abdomen Time Seen by Provider: 12/19/17 16:12 Chief Complaint (Nursing): Abdominal Pain Chief Complaint (Provider): Abd pain History Per: Patient History/Exam Limitations: no limitations Onset/Duration Of Symptoms: Days (several days) Additional Complaint(s): Pt. with abd pain. Here recently and dx with diverticulitis. Pt. did not want to stay and dc with antibiotics. Came back as she still has pain. Saw the clinic and was sent to the ER. No nausea, vomit, chest pain, dyspnea, weakness , back pain. No dysuria. Past Medical History Reviewed: Nursing Documentation, Vital Signs Vital Signs: Last Vital Signs Temp 98.2 F 12/19/17 16:10 Pulse 91 H 12/19/17 16:10 Resp 18 12/19/17 16:10 BP 111/77 12/19/17 16:10 Pulse Ox 100 12/19/17 16:10 - Medical History PMH: Anxiety, Fractures, HTN, Hypercholesterolemia Denies: Chronic Kidney Disease Other PMH: diverticulitis - Surgical History Surgical History: Tonsillectomy - Family History Family History: States: Unknown Family Hx - Home Medications Home Medications: Ambulatory Orders Medication Instructions Recorded MetFORMIN ER [Glucophage XR] 500 mg PO BID 05/22/14 Acetaminophen [Tylenol 325mg tab] 650 mg PO Q6 PRN tab 09/10/17 Nitrofurantoin Macrocrystals 100 mg PO BID 5 Days cap 12/12/17 [Macrobid] Ciprofloxacin [Cipro] 500 mg PO BID #14 tab 12/15/17 Enalapril Maleate [Vasotec] 10 mg PO DAILY 12/19/17 clonazePAM [Klonopin] 0.5 mg PO BID 12/19/17 metroNIDAZOLE [Flagyl] 500 mg PO Q8 12/19/17 traMADol [Ultram] 50 mg PO Q8 PRN 12/19/17 - Allergies Allergies/Adverse Reactions: Allergies Allergy/AdvReac Type Severity Reaction Status Date / Time No Known Allergies Allergy Verified 12/19/17 16:10 Review of Systems ROS Statement: Except As Marked, All Systems Reviewed And Found Negative Gastrointestinal: Positive for: Abdominal Pain Physical Exam - Reviewed Nursing Documentation Reviewed: Yes Vital Signs Reviewed: Yes - Physical Exam Appears: Positive for: Non-toxic, No Acute Distress Head Exam: Positive for: ATRAUMATIC, NORMAL INSPECTION, NORMOCEPHALIC Skin: Positive for: Normal Color, Warm, DRY Eye Exam: Positive for: EOMI, Normal appearance, PERRL ENT: Positive for: Normal ENT Inspection Neck: Positive for: Normal, Painless ROM, Supple Cardiovascular/Chest: Positive for: Regular Rate, Rhythm Respiratory: Positive for: CNT, Normal Breath Sounds Gastrointestinal/Abdominal: Positive for: Soft, Tenderness (tender diffuse) Back: Positive for: Normal Inspection. Negative for: L CVA Tenderness, R CVA Tenderness Extremity: Positive for: Normal ROM. Negative for: Tenderness Neurologic/Psych: Positive for: Alert, Oriented - ECG O2 Sat by Pulse Oximetry: 100 Pulse Ox Interpretation: Normal - Progress ED Course And Treament: 1643: Stable. [facility]. Will admit. Sent from clinic for admit. Dr. Martinez is pcp. AAOx3. Disposition - Clinical Impression Clinical Impression: Diverticulitis - Disposition Disposition Time: 16:10 Condition: GOOD
[2017-12-19] MEDS ORDERED: metroNIDAZOLE 500mg/100ml NS 100 ML IVPB ONE (17:01)
[2017-12-19] MEDS ORDERED: Ciprofloxacin 400mg/200ml D5W 400 MG/200 ML BAG IVPB ONE (17:01)
--- NOTE | 2017-12-19 17:28 | RAD ---
Date of service: 12/19/2017 HISTORY: dyspnea COMPARISON: 09/10/2017. FINDINGS: LUNGS: Stable scarring right upper lobe. PLEURA: No significant pleural effusion identified, no pneumothorax apparent. CARDIOVASCULAR: No radiographic findings to suggest acute or significant cardiovascular disease. OSSEOUS STRUCTURES: No significant abnormalities. VISUALIZED UPPER ABDOMEN: Normal. OTHER FINDINGS: None. IMPRESSION: No active disease. No significant interval change compared to the prior examination(s).
[2017-12-19 17:34] LABS: VENOUS BLOOD GAS PCO2 53 mmHg (40-60); VENOUS BLOOD GAS PO2 22 mm/Hg (30-55); VENOUS BLOOD PH 7.37 (7.32-7.43)
--- NOTE | 2017-12-19 17:34 | CP.PCM.HP ---
History of Present Illness - History of Present Illness History of Present Illness: 82 yo female with PMH of DMII, HTN and anxiety sent to [facility] ED from [facility] for worsening, localized LLQ abdominal pain x 2 weeks. Patient was seen in ED on 01/22 for similar complaints, had abdomen and pelvis CT which showed acute sigmoid diverticulitis with microperforation. Patient was discharged home with cipro and flagyl po. Patient reports she has been taking the antibiotics but her pain has been persistent and rates it 10/10 at times. Reports dark bowel movement today and blood on tissue when wiping. Denies hematochezia, nausea, vomiting, dysuria, fever or chills. Denies headache, dizziness, chest pain, dyspnea or dizziness. ROS: all 12 systems reviewed and negative except as mentioned in HPI. PMD: Dr. Abdullahi Martinez PMHx: NIDDM2, anxiety, HTN, breast cancer, TB PSHx: 2017 right hip ORIF, 2014 right ankle ORIF, breast lumpectomy, thoracic surgery, s/p Left hip percutaneous pinning of subcapital fx on 09/09/17 Family hx: Denies family hx CA or DMII. Social hx: smokes 1 pack/3 days, smokes on and off, smoking since age 19, denies alcohol and drugs Medications: see med list Allergies: NKDA Present on Admission - Present on Admission Any Indicators Present on Admission: No Review of Systems - Review of Systems All systems: reviewed and no additional remarkable complaints except (as mentioned in HPI) Past Patient History - Past Medical History & Family History Past Medical History?: Yes - Past Social History Smoking Status: Light Smoker < 10 Cigarettes Daily - CARDIAC Hx Hypercholesterolemia: Yes Hx Hypertension: Yes - PULMONARY Hx Respiratory Disorders: No - NEUROLOGICAL Hx Neurological Disorder: No - HEENT Hx HEENT Problems: Yes Other/Comment: wears eye glasses - RENAL Hx Chronic Kidney Disease: No - ENDOCRINE/METABOLIC Hx Endocrine Disorders: Yes Hx Diabetes Mellitus Type 2: Yes - HEMATOLOGICAL/ONCOLOGICAL Hx Blood Disorders: Yes - INTEGUMENTARY Hx Dermatological Problems: No - MUSCULOSKELETAL/RHEUMATOLOGICAL Hx Fractures: Yes - GASTROINTESTINAL Hx Gastrointestinal Disorders: No - GENITOURINARY/GYNECOLOGICAL Hx Genitourinary Disorders: No - PSYCHIATRIC Hx Anxiety: Yes - SURGICAL HISTORY Hx Tonsillectomy: Yes - ANESTHESIA Hx Anesthesia: Yes Hx Anesthesia Reactions: No Hx Malignant Hyperthermia: No Meds Allergies/Adverse Reactions: Allergies Allergy/AdvReac Type Severity Reaction Status Date / Time No Known Allergies Allergy Verified 12/19/17 16:10 Physical Exam - Constitutional Appears: Non-toxic, No Acute Distress, Other - Head Exam Head Exam: ATRAUMATIC, NORMOCEPHALIC - Eye Exam Eye Exam: EOMI, Normal appearance, PERRL - ENT Exam ENT Exam: Mucous Membranes Moist - Neck Exam Neck exam: Positive for: Full Rom, Normal Inspection. Negative for: Meningismus - Respiratory Exam Respiratory Exam: Clear to Auscultation Bilateral, NORMAL BREATHING PATTERN. absent: Rales, Rhonchi, Wheezes - Cardiovascular Exam Cardiovascular Exam: REGULAR RHYTHM, RRR, +S1, +S2 - GI/Abdominal Exam GI & Abdominal Exam: Normal Bowel Sounds, Soft, Tenderness (Moderate tenderness in LLQ, No guarding.). absent: Guarding, Rebound - Extremities Exam Extremities exam: Positive for: normal inspection, pedal pulses present. Negative for: calf tenderness, pedal edema - Back Exam Back exam: absent: CVA tenderness (L), CVA tenderness (R) - Neurological Exam Neurological exam: Alert, Oriented x3 - Psychiatric Exam Psychiatric exam: Normal Affect, Normal Mood - Skin Skin Exam: Rash (erythematous 1 cm circular rash on right lateral ankle, non- tender.) Results - Vital Signs Recent Vital Signs: Last Vital Signs Temp 98.2 F 12/19/17 16:10 Pulse 91 H 12/19/17 16:10 Resp 18 12/19/17 16:10 BP 111/77 12/19/17 16:10 Pulse Ox 100 12/19/17 16:43 - Labs Result Diagrams: 12/19/17 17:31 Assessment & Plan - Assessment and Plan (Free Text) Assessment: Assessment and Plan: 82 yo female PMHX DMII, HTN and anxiety admitted for acute diverticulitis after failed outpatient po antibiotics management. (1) Acute Diverticulitis -Failed outpatient PO antibiotics. -Stable vitals, afebrile, wbc 6.8 -CT abdomen/pelvis on 12/15/17: acute sigmoid diverticultis with small microperforations. -NPO, will advance to clear liquid as tolerated in the AM -IV fluids -Start IV cipro and flagyl -f/u cbc, cmp (2) Hypertension -chronic, controlled -c/w home medication, vasotec 10 mg po (3) Diabetes mellitus,type II -Chronic, controlled -Accu-checks, sliding scale insulin -Hold metformin (4) Hx Anxiety -stable -c/w home medications klonopin 0.5 mg po bid (5) DVT prophylaxis -SCD's -Encourage ambulation -Anticoagulant contraindicated due to possible GI bleeding with diverticulitis
[2017-12-19 17:51] LABS: BASO # 0.1 K/uL (0.0-0.2); EOS # 0.3 K/uL (0.0-0.7); EOS % 4.5 % (0.0-4.0); HEMOGLOBIN 13.7 g/dL (12.0-16.0); LYMPH # 2.1 K/uL (1.0-4.3); LYMPH % 30.4 % (20.0-40.0); MEAN CELL VOLUME 81.1 fl (81.0-99.0); MEAN CORPUSCULAR HEMOGLOBIN 26.9 pg (27.0-31.0); MEAN CORPUSCULAR HGB CONC 33.2 g/dL (33.0-37.0); MEAN PLATELET VOLUME 7.8 fl (7.2-11.7); MONO # 0.4 K/uL (0.0-0.8); MONO % 6.4 % (0.0-10.0); NEUT # 3.9 K/uL (1.8-7.0); NEUT % 57.7 % (50.0-75.0); NRBC % 0.9 % (0.0-0.0); RBC 5.1 Mil/uL (3.80-5.20); RED CELL DISTRIBUTION WIDTH 15.6 % (11.5-14.5); WHITE BLOOD COUNT 6.8 K/uL (4.8-10.8)
[2017-12-19] MEDS: metroNIDAZOLE 500mg/100ml NS 100 ML IVPB SCH (18:37)
[2017-12-19] MEDS: Potassium Ch 20mEq in D5-1/2NS 1,000 ML IV SCH (18:38)
[2017-12-19] MEDS ORDERED: Iohexol 240 (50 ml) PO ONE (18:56)
[2017-12-19 19:36] LABS: ALB/GLOB RATIO 1.2 (1.0-2.1); ALBUMIN 4.2 g/dL (3.5-5.0); ALT/SGPT 30 U/L (9-52); AST/SGOT 31 U/L (14-36); BLOOD UREA NITROGEN 6 mg/dl (7-17); GFR NON-AFRICAN AMERICAN > 60; LIPASE 111 U/L (23-300)
[2017-12-19] MEDS ORDERED: Ciprofloxacin 200mg/100ml D5W 100 ML IVPB SCH (21:00)
[2017-12-19] MEDS: Insulin Lispro (humaLOG) 100 Units/ml Inj SC SCH (22:48)
[2017-12-20] MEDS: metroNIDAZOLE 500mg/100ml NS 100 ML IVPB SCH ×3 (01:13→17:45)
[2017-12-20] MEDS: Ciprofloxacin 200mg/100ml D5W 100 ML IVPB SCH ×2 (05:19→18:45)
[2017-12-20] MEDS: Potassium Ch 20mEq in D5-1/2NS 1,000 ML IV SCH ×3 (06:00→18:56)
[2017-12-20 07:55] LABS: ALB/GLOB RATIO 1.1 (1.0-2.1); ALBUMIN 3.6 g/dL (3.5-5.0); ALT/SGPT 26 U/L (9-52); AST/SGOT 30 U/L (14-36); BLOOD UREA NITROGEN 6 mg/dl (7-17); CALCIUM 8.4 mg/dL (8.4-10.2); GFR NON-AFRICAN AMERICAN > 60; LIPASE 85 U/L (23-300)
[2017-12-20 08:03] LABS: MEAN CELL VOLUME 81.3 fl (81.0-99.0); MEAN CORPUSCULAR HEMOGLOBIN 26.1 pg (27.0-31.0); MEAN CORPUSCULAR HGB CONC 32.1 g/dL (33.0-37.0); RBC 4.42 Mil/uL (3.80-5.20); RED CELL DISTRIBUTION WIDTH 15.4 % (11.5-14.5); WHITE BLOOD COUNT 5.2 K/uL (4.8-10.8)
[2017-12-20 08:04] LABS: HEMOGLOBIN 11.5 g/dL (12.0-16.0)
[2017-12-20] MEDS: Insulin Lispro (humaLOG) 100 Units/ml Inj SC SCH ×4 (08:08→21:40)
--- NOTE | 2017-12-20 10:56 | CP.PCM.PN ---
<MaplewoodSultan hema - Last Filed: 12/20/17 11:27> Subjective - Date & Time of Evaluation Date of Evaluation: 12/20/17 Time of Evaluation: 10:15 - Subjective Subjective: Patient seen and examined in the morning. No acute overnight events. Afebrile, NAD Reports LLQ abdominal pain improved. Denies fever, chills, nausea, vomiting, headache, dizziness, chest pain, dyspnea or calf pain. Diet was advanced to clear liquid this morning and pt is tolerating po. Had BM this morning but did not observe the color of the stool. Objective - Vital Signs/Intake and Output Vital Signs (last 24 hours): Temp Pulse Resp BP Pulse Ox 98.2 F 64 19 129/61 96 12/20/17 07:52 12/20/17 07:52 12/20/17 07:52 12/20/17 07:52 12/20/17 07:52 - Medications Medications: Current Medications Acetaminophen (Tylenol 325mg Tab) 650 mg PO Q6 PRN PRN Reason: Pain, moderate (4-7) Clonazepam (Klonopin) 0.5 mg PO BID [facility] Last Admin: 12/19/17 18:12 Dose: 0.5 mg Enalapril Maleate (Vasotec) 10 mg PO DAILY [facility] Potassium Chloride/Dextrose/Sod Cl (Potassium Chl 20 Meq In D5-1/2ns) 1,000 mls @ 125 mls/hr IV .Q8H [facility] Last Admin: 12/19/17 18:38 Dose: 125 mls/hr Metronidazole (Flagyl 500mg/100ml Ns) 100 mls @ 100 mls/hr IVPB Q8 [facility] PRN Reason: Protocol Last Admin: 12/20/17 01:13 Dose: 100 mls/hr Ciprofloxacin (Cipro 200mg/100ml D5w) 100 mls @ 100 mls/hr IVPB Q12@0500,1700 [facility] PRN Reason: Protocol Last Admin: 12/20/17 05:19 Dose: 100 mls/hr Insulin Human Lispro (Humalog) 0 units SC ACHS NIRAV PRN Reason: Protocol Last Admin: 12/19/17 22:48 Dose: Not Given Ondansetron HCl (Zofran Inj) 4 mg IVP Q6 PRN PRN Reason: Nausea/Vomiting - Labs Labs: 12/20/17 06:30 09/15/18 06:30 - Constitutional Appears: Non-toxic, No Acute Distress - Head Exam Head Exam: ATRAUMATIC, NORMAL INSPECTION - Eye Exam Eye Exam: Normal appearance - ENT Exam ENT Exam: Mucous Membranes Moist - Neck Exam Neck Exam: Full ROM. absent: Meningismus - Respiratory Exam Respiratory Exam: Clear to Ausculation Bilateral, NORMAL BREATHING PATTERN. absent: Rhonchi, Wheezes - Cardiovascular Exam Cardiovascular Exam: REGULAR RHYTHM, RRR, +S1, +S2 - GI/Abdominal Exam GI & Abdominal Exam: Soft, Tenderness (Mild tenderness in LLQ, no guarding or rigidity. No tenderness in the RLQ.), Normal Bowel Sounds - Extremities Exam Extremities Exam: Normal Capillary Refill, Normal Inspection. absent: Calf Tenderness, Pedal Edema - Back Exam Back Exam: absent: CVA tenderness (L), CVA tenderness (R) - Neurological Exam Neurological Exam: Alert, Awake, Oriented x3 Additional comments: Mild swelling of left forearm from IV lines. No tenderness or erythema. - Psychiatric Exam Psychiatric exam: Normal Affect, Normal Mood - Skin Skin Exam: Normal Color Assessment and Plan - Assessment and Plan (Free Text) Assessment: Assessment and Plan: 82 yo female PMHX DMII, HTN and anxiety admitted for acute diverticulitis after failed outpatient po antibiotics management. (1) Acute Diverticulitis -Failed outpatient PO antibiotics. -Stable vitals, afebrile, wbc 6.8 -CT abdomen/pelvis on 12/15/17: acute sigmoid diverticulitis with small microperforations. -CT A/P on 12/19/17: (vrad) acute diverticulitis of the sigmoid colon superimposed upon extensive diverticulosis. Associated sigmoid wall thickening. However, no perforation or abscess. -C/W IV cipro and flagyl (day 2) -diet: clear liquid -f/u cbc, cmp (2) Hypertension -chronic, controlled -c/w home medication, vasotec 10 mg po (3) Diabetes mellitus,type II -Chronic, controlled -Accu-checks, sliding scale insulin -Hold metformin (4) Hx Anxiety -stable -c/w home medications klonopin 0.5 mg po bid (5) DVT prophylaxis -SCD's -Encourage ambulation -Anticoagulant contraindicated due to possible GI bleeding with diverticulitis <Alma Palmer - Last Filed: 12/20/17 15:05> Objective - Vital Signs/Intake and Output Vital Signs (last 24 hours): Temp Pulse Resp BP Pulse Ox 98.2 F 64 19 129/61 96 12/20/17 07:52 12/20/17 07:52 12/20/17 07:52 12/20/17 07:52 12/20/17 07:52 - Medications Medications: Current Medications Acetaminophen (Tylenol 325mg Tab) 650 mg PO Q6 PRN PRN Reason: Pain, moderate (4-7) Clonazepam (Klonopin) 0.5 mg PO BID [facility] Last Admin: 12/20/17 12:12 Dose: 0.5 mg Enalapril Maleate (Vasotec) 10 mg PO DAILY [facility] Last Admin: 12/20/17 12:12 Dose: 10 mg Potassium Chloride/Dextrose/Sod Cl (Potassium Chl 20 Meq In D5-1/2ns) 1,000 mls @ 125 mls/hr IV .Q8H [facility] Last Admin: 12/20/17 12:12 Dose: Not Given Metronidazole (Flagyl 500mg/100ml Ns) 100 mls @ 100 mls/hr IVPB Q8 NIRAV PRN Reason: Protocol Last Admin: 12/20/17 11:07 Dose: 100 mls/hr Ciprofloxacin (Cipro 200mg/100ml D5w) 100 mls @ 100 mls/hr IVPB Q12@0500,1700 NIRAV PRN Reason: Protocol Last Admin: 12/20/17 05:19 Dose: 100 mls/hr Insulin Human Lispro (Humalog) 0 units SC ACHS NIRAV PRN Reason: Protocol Last Admin: 12/20/17 12:08 Dose: Not Given Ondansetron HCl (Zofran Inj) 4 mg IVP Q6 PRN PRN Reason: Nausea/Vomiting - Labs Labs: 12/20/17 06:30 12/20/17 06:30 Attending/Attestation - Attestation I have personally seen and examined this patient.: Yes I have fully participated in the care of the patient.: Yes I have reviewed all pertinent clinical information, including history, physical exam and plan: Yes Notes (Text): Still with LLQ pain but better- will continue IV antibiotics for now as pt failed outpt Tx
--- NOTE | 2017-12-20 13:18 | CT ---
Date of service: 12/19/2017 PROCEDURE: CT Abdomen and Pelvis without intravenous contrast HISTORY: diverticulitis with microperforations, increased p COMPARISON: 12/15/2017 TECHNIQUE: CT scan of the abdomen and pelvis was performed without the administration of contrast. Coronal and sagittal reformatted images were obtained.. Contrast dose: No contrast. Radiation dose: Total exam DLP = 226 mGy-cm. This CT exam was performed using one or more of the following dose reduction techniques: Automated exposure control, adjustment of the mA and/or kV according to patient size, and/or use of iterative reconstruction technique. FINDINGS: LOWER THORAX: Chronic interstitial changes and scarring without new infiltrate or effusion. Visualized distal esophagus is unremarkable. Visualized stomach is also stable as well as the duodenum. LIVER: Unchanged from prior study. GALLBLADDER AND BILE DUCTS: Stable. PANCREAS: No new pancreatic enlargement or peripancreatic inflammatory change. SPLEEN: Unremarkable. ADRENALS: Unremarkable. No mass. KIDNEYS AND URETERS: No hydronephrosis or new perinephric inflammatory change. VASCULATURE: Moderate atherosclerotic change of the aorta. BOWEL: There is once again evidence of diverticulitis involving the junction of the left colon and proximal sigmoid colon with persistent pericolonic inflammatory change and wall thickening. This may be minimally improved with some decrease central low density in this area. No new pericolonic inflammatory change, focal fluid collection to suggest abscess, or free air is noted. Severe chronic diverticular changes are seen elsewhere in the sigmoid colon. Appendix is slightly fluid-filled when compared to the prior study, although no periappendiceal inflammatory changes are noted. Right colon is unremarkable. No small bowel dilatation or small bowel obstruction is noted. APPENDIX: Mild fluid-filled appendix without periappendiceal inflammatory change. PERITONEUM: Unremarkable. No free fluid. No free air. LYMPH NODES: Unremarkable. No enlarged lymph nodes. BLADDER: Unremarkable. REPRODUCTIVE: No change. BONES: No acute fracture. OTHER FINDINGS: None. IMPRESSION: Diverticulitis involving the junction of the left colon and proximal sigmoid colon as was seen on the prior study. This may be minimally improved although persistent pericolonic inflammatory change and bowel wall thickening remain. No new abscess or free intraperitoneal air. This agrees with preliminary report provided by the on-call radiologist.
[2017-12-20 16:10] VITALS: RESP 20
[2017-12-20] MEDS ORDERED: Artificial Tears Opht Soln OU PRN (23:06)
[2017-12-21 00:45] VITALS: BP 122/66; PULSE 63; TEMP 98; O2SAT 98
[2017-12-21] MEDS: metroNIDAZOLE 500mg/100ml NS 100 ML IVPB SCH (01:14)
[2017-12-21] MEDS: Ciprofloxacin 200mg/100ml D5W 100 ML IVPB SCH (05:54)
[2017-12-21 06:21] LABS: HEMOGLOBIN 12.4 g/dL (12.0-16.0); MEAN CELL VOLUME 81.5 fl (81.0-99.0); MEAN CORPUSCULAR HEMOGLOBIN 26.4 pg (27.0-31.0); MEAN CORPUSCULAR HGB CONC 32.4 g/dL (33.0-37.0); RBC 4.7 Mil/uL (3.80-5.20); RED CELL DISTRIBUTION WIDTH 15.7 % (11.5-14.5); WHITE BLOOD COUNT 5.5 K/uL (4.8-10.8)
[2017-12-21 06:34] LABS: BLOOD UREA NITROGEN 5 mg/dl (7-17); CALCIUM 9.1 mg/dL (8.4-10.2); GFR NON-AFRICAN AMERICAN > 60
[2017-12-21] MEDS: Insulin Lispro (humaLOG) 100 Units/ml Inj SC SCH ×2 (08:35→11:56)
--- NOTE | 2017-12-21 08:54 | CP.PCM.DIS ---
<Renae Steele - Last Filed: 12/21/17 13:11> Provider - Provider Date of Admission: 12/19/17 16:18 Attending physician: Abdullahi Martinez MD Primary care physician: Dr. Abdullahi Martinez Time Spent in preparation of Discharge (in minutes): 30 Diagnosis - Discharge Diagnosis (1) Diverticulitis Status: Acute Hospital Course - Lab Results Lab Results: Micro Results 12/19/17 17:25 Blood Blood Culture - Preliminary NO GROWTH AFTER 24 HOURS Most Recent Lab Values WBC 5.5 K/uL (4.8-10.8) 12/21/17 05:45 RBC 4.70 Mil/uL (3.80-5.20) 12/21/17 05:45 Hgb 12.4 g/dL (12.0-16.0) 12/21/17 05:45 Hct 38.3 % (34.0-47.0) 12/21/17 05:45 MCV 81.5 fl (81.0-99.0) 12/21/17 05:45 MCH 26.4 pg (27.0-31.0) L 12/21/17 05:45 MCHC 32.4 g/dL (33.0-37.0) L 12/21/17 05:45 RDW 15.7 % (11.5-14.5) H 12/21/17 05:45 Plt Count 207 K/uL (130-400) 12/21/17 05:45 MPV 7.8 fl (7.2-11.7) 12/19/17 17:31 Neut % (Auto) 57.7 % (50.0-75.0) 12/19/17 17:31 Lymph % (Auto) 30.4 % (20.0-40.0) 12/19/17 17:31 Haakon % (Auto) 6.4 % (0.0-10.0) 12/19/17 17:31 Eos % (Auto) 4.5 % (0.0-4.0) H 12/19/17 17:31 Baso % (Auto) 1.0 % (0.0-2.0) 12/19/17 17:31 Neut # (Auto) 3.9 K/uL (1.8-7.0) 12/19/17 17:31 Lymph # (Auto) 2.1 K/uL (1.0-4.3) 12/19/17 17:31 Haakon # (Auto) 0.4 K/uL (0.0-0.8) 12/19/17 17:31 Eos # (Auto) 0.3 K/uL (0.0-0.7) 12/19/17 17: Baso # (Auto) 0.1 K/uL (0.0-0.2) 12/19/17 17:31 pO2 22 mm/Hg (30-55) L 12/19/17 17:27 VBG pH 7.37 (7.32-7.43) 12/19/17 17:27 VBG pCO2 53 mmHg (40-60) 12/19/17 17: VBG HCO3 26.4 mmol/L 12/19/17 17: VBG Total CO2 32.2 mmol/L (22-28) H 12/19/17 17:27 VBG O2 Sat (Calc) 44.3 % (40-65) 12/19/17 17:27 VBG Base Excess 4.0 mmol/L (0.0-2.0) H 12/19/17 17:27 VBG Potassium 4.4 mmol/L (3.6-5.2) 12/19/17 17: Sodium 137.0 mmol/L (132-148) 12/19/17 17: Chloride 103.0 mmol/L (98-107) 12/19/17 17: Glucose 102 mg/dL (65-105) 12/19/17 17:27 Lactate 2.2 mmol/L (0.7-2.1) H 12/19/17 17:27 FiO2 21.0 % 12/19/17 17:27 Blood Gas Comments Lact=2.2 12/19/17 17:27 Crit Value Called To godfrey Grimes 12/19/17 17: Crit Value Called By 12/19/17 17:27 Crit Value Read Back Y 12/19/17 17: Blood Gas Notified Time 1733 12/19/17 17:27 Sodium 140 mmol/l (132-148) 12/21/17 05:45 Potassium 4.0 MMOL/L (3.6-5.0) 12/21/17 05:45 Chloride 109 mmol/L (98-107) H 12/21/17 05:45 Carbon Dioxide 25 mmol/L (22-30) 12/21/17 05:45 Anion Gap 10 (10-20) 12/21/17 05:45 BUN 5 mg/dl (7-17) L 12/21/17 05:45 Creatinine 0.4 mg/dl (0.7-1.2) L 12/21/17 05:45 Est GFR ( Amer) > 60 12/21/17 05:45 Est GFR (Non-Af Amer) > 60 12/21/17 05:45 POC Glucose (mg/dL) 92 mg/dL (65-110) 12/21/17 08:17 Random Glucose 91 mg/dL (65-105) 12/21/17 05:45 Lactic Acid 1.0 MMOL/L (0.7-2.1) 12/20/17 06:30 Calcium 9.1 mg/dL (8.4-10.2) 12/21/17 05:45 Total Bilirubin 0.3 mg/dl (0.2-1.3) 12/20/17 06:30 AST 30 U/L (14-36) 12/20/17 06:30 ALT 26 U/L (9-52) 12/20/17 06:30 Alkaline Phosphatase 60 U/L (38-126) 12/20/17 06:30 Total Protein 6.9 G/DL (6.3-8.2) 12/20/17 06:30 Albumin 3.6 g/dL (3.5-5.0) 12/20/17 06:30 Globulin 3.4 gm/dL (2.2-3.9) 12/20/17 06:30 Albumin/Globulin Ratio 1.1 (1.0-2.1) 12/20/17 06:30 Lipase 85 U/L (23-300) 12/20/17 06:30 Venous Blood Potassium 4.4 mmol/L (3.6-5.2) 12/19/17 17:27 - Hospital Course Hospital Course: 82 yo female with PMH of DMII, HTN and anxiety sent to [facility] from [facility] for worsening, localized LLQ abdominal pain x 2 weeks. Patient was seen in ED on 01/22 for similar complaints, had abdomen and pelvis CT which showed acute sigmoid diverticulitis with microperforation. Patient refused admission and so was discharged home with Ciprofloxacin 500mg po BID #14 and flagyl 500 TID po # 21. Patient reported she was taking the antibiotics but her pain had been persistent and rates it 10/10 at times. Reported dark bowel movement and blood on tissue when wiping at admission. Denies hematochezia, nausea, vomiting, dysuria, fever or chills. Denies headache, dizziness, chest pain, dyspnea or dizziness. ED course: Patient was admitted after E.R spoke to [facility]. Patient was taken to the floor to start IV antibiotic treatment- Cipro and Flagy. Floor course: Patient tolerated IV Ciprofloxacin and Flagyl well throughout hospital course. IV was infiltrated 12/21/17 and so she was given her medications as PO. Patient denies abdominal pain, constipation, melena and hematochezia. Patient will be discharged without Prescription for Ciprofloxacin and Flagy as the patient still has her previously prescribed medications in her purse ( demonstrated the bottles to the team with pills inside it). It was stressed to the patient the importance of taking the antibiotics as prescribed. Patient reiterated that she understood and will take them as prescribed. Patient will be following up with Dr. Martinez in [facility] within 1 week. Medications patient will be taking upon discharge: 1. Ciprofloxacin 500mg po BID #14 2. Flagyl 500 PO TID #21 - Date & Time of H&P Date of H&P: 12/19/17 Time of H&P: 17:30 Discharge Exam - Head Exam Head Exam: ATRAUMATIC, NORMAL INSPECTION - ENT Exam ENT Exam: Mucous Membranes Moist - Respiratory Exam Respiratory Exam: Clear to PA & Lateral, NORMAL BREATHING PATTERN, UNREMARKABLE. absent: Rales, Rhonchi, Wheezes - Cardiovascular Exam Cardiovascular Exam: REGULAR RHYTHM, RRR, +S1, +S2. absent: Diastolic murmur, Gallop, Systolic Murmur - GI/Abdominal Exam GI & Abdominal Exam: Distended, Hyperactive Bowel Sounds, Soft. absent: Firm, Guarding, Hernia, Pulsatile Mass, Rebound, Rigid, Tenderness - Extremities Exam Extremities exam: normal capillary refill, pedal pulses present - Neurological Exam Neurological exam: Alert, Oriented x3 - Psychiatric Exam Psychiatric exam: Normal Affect, Normal Mood - Skin Skin Exam: Dry, Intact, Normal Color, Warm Discharge Plan - Follow Up Plan Condition: STABLE Disposition: HOME/ ROUTINE Patient education suggested?: Yes Instructions: Diverticulitis Additional Instructions: ff up with Dr Martinez in 1 wk cont PO Cipro and Flagyl Return to ED if with fever, worsening abd pain Referrals: Abdullahi Martinez MD [Staff Provider] - <Alma Palmer - Last Filed: 12/21/17 14:17> Provider - Provider Date of Admission: 12/19/17 16:18 Attending physician: Abdullahi Martinez MD Hospital Course - Lab Results Lab Results: Micro Results 12/19/17 17:25 Blood Blood Culture - Preliminary NO GROWTH AFTER 24 HOURS Most Recent Lab Values WBC 5.5 K/uL (4.8-10.8) 12/21/17 05:45 RBC 4.70 Mil/uL (3.80-5.20) 12/21/17 05:45 Hgb 12.4 g/dL (12.0-16.0) 12/21/17 05:45 Hct 38.3 % (34.0-47.0) 12/21/17 05:45 MCV 81.5 fl (81.0-99.0) 12/21/17 05:45 MCH 26.4 pg (27.0-31.0) L 12/21/17 05:45 MCHC 32.4 g/dL (33.0-37.0) L 12/21/17 05:45 RDW 15.7 % (11.5-14.5) H 12/21/17 05:45 Plt Count 207 K/uL (130-400) 12/21/17 05:45 MPV 7.8 fl (7.2-11.7) 12/19/17 17:31 Neut % (Auto) 57.7 % (50.0-75.0) 12/19/17 17:31 Lymph % (Auto) 30.4 % (20.0-40.0) 12/19/17 17:31 Haakon % (Auto) 6.4 % (0.0-10.0) 12/19/17 17:31 Eos % (Auto) 4.5 % (0.0-4.0) H 12/19/17 17:31 Baso % (Auto) 1.0 % (0.0-2.0) 12/19/17 17:31 Neut # (Auto) 3.9 K/uL (1.8-7.0) 12/19/17 17:31 Lymph # (Auto) 2.1 K/uL (1.0-4.3) 12/19/17 17:31 Haakon # (Auto) 0.4 K/uL (0.0-0.8) 12/19/17 17:31 Eos # (Auto) 0.3 K/uL (0.0-0.7) 12/19/17 17:31 Baso # (Auto) 0.1 K/uL (0.0-0.2) 12/19/17 17: pO2 22 mm/Hg (30-55) L 12/19/17 17:27 VBG pH 7.37 (7.32-7.43) 12/19/17 17: VBG pCO2 53 mmHg (40-60) 12/19/17 17: VBG HCO3 26.4 mmol/L 12/19/17 17:27 VBG Total CO2 32.2 mmol/L (22-28) H 12/19/17 17:27 VBG O2 Sat (Calc) 44.3 % (40-65) 12/19/17 17:27 VBG Base Excess 4.0 mmol/L (0.0-2.0) H 12/19/17 17: VBG Potassium 4.4 mmol/L (3.6-5.2) 12/19/17: Sodium 137.0 mmol/L (132-148) 12/19/17 17: Chloride 103.0 mmol/L (98-107) 12/19/17 17: Glucose 102 mg/dL (65-105) 12/19/17 17: Lactate 2.2 mmol/L (0.7-2.1) H 12/19/17 17: FiO2 21.0 % 12/19/17 17: Blood Gas Comments Lact=2.2 12/19/17 17: Crit Value Called To godfrey Grimes 12/19/17 17: Crit Value Called By 12/19/17 17: Crit Value Read Back Y 12/19/17 17:27 Blood Gas Notified Time 1733 12/19/17 17:27 Sodium 140 mmol/l (132-148) 12/21/17 05:45 Potassium 4.0 MMOL/L (3.6-5.0) 12/21/17 05:45 Chloride 109 mmol/L (98-107) H 12/21/17 05:45 Carbon Dioxide 25 mmol/L (22-30) 12/21/17 05:45 Anion Gap 10 (10-20) 12/21/17 05:45 BUN 5 mg/dl (7-17) L 12/21/17 05:45 Creatinine 0.4 mg/dl (0.7-1.2) L 12/21/17 05:45 Est GFR ( Amer) > 60 12/21/17 05:45 Est GFR (Non-Af Amer) > 60 12/21/17 05:45 POC Glucose (mg/dL) 141 mg/dL (65-110) H 12/21/17 11:04 Random Glucose 91 mg/dL (65-105) 12/21/17 05:45 Lactic Acid 1.0 MMOL/L (0.7-2.1) 12/20/17 06:30 Calcium 9.1 mg/dL (8.4-10.2) 12/21/17 05:45 Total Bilirubin 0.3 mg/dl (0.2-1.3) 12/20/17 06:30 AST 30 U/L (14-36) 12/20/17 06:30 ALT 26 U/L (9-52) 12/20/17 06:30 Alkaline Phosphatase 60 U/L (38-126) 12/20/17 06:30 Total Protein 6.9 G/DL (6.3-8.2) 12/20/17 06:30 Albumin 3.6 g/dL (3.5-5.0) 12/20/17 06:30 Globulin 3.4 gm/dL (2.2-3.9) 12/20/17 06:30 Albumin/Globulin Ratio 1.1 (1.0-2.1) 12/20/17 06:30 Lipase 85 U/L (23-300) 12/20/17 06:30 Venous Blood Potassium 4.4 mmol/L (3.6-5.2) 12/19/17 17:27 Attending/Attestation - Attestation I have personally seen and examined this patient.: Yes I have fully participated in the care of the patient.: Yes I have reviewed all pertinent clinical information, including history, physical exam and plan: Yes Notes (Text): Acute Diverticulitis HTN DM Type II Anxiety Dis - pt's symptoms resolved. Pt has no fever, no leukocytosis, abd pain resolved. Tolerating PO diet. - GI appt as outpt for Colonoscopy in 6-8 wks - ff up with Dr Juan knight - cont WILLIAN Todd and Balta
== END 2017-12-21 13:20 | disposition home or self-care (01) | DRG 392 ==
LOC: H.ER 15:54 → H.ERHOLD 16:18 → H.MEDSURG1 22:18
PROVIDERS: ADMIT Family Medicine; ATTEND Family Medicine
DX: K57.20 Diverticulitis of large intestine with perforation and abscess without bleeding (principal); F41.9 Anxiety disorder, unspecified; I10 Essential (primary) hypertension; E78.00 Pure hypercholesterolemia, unspecified; E11.9 Type 2 diabetes mellitus without complications; Z85.3 Personal history of malignant neoplasm of breast; F17.210 Nicotine dependence, cigarettes, uncomplicated; Z91.041 Radiographic dye allergy status

== ENCOUNTER 2018-08-19 13:31 | Emergency (ER) | payer MEDICARE, MEDICAID ==
[2018-08-19 13:32] VITALS: BMI 23.3
[2018-08-19 13:58] VITALS: O2SAT 98
--- NOTE | 2018-08-19 14:18 | ED PDOC ---
HPI: Trauma/Fall - HPI Time Seen by Provider: 08/19/18 14:08 Chief Complaint (Nursing): Rib Injury Chief Complaint (Provider): Rib Injury History Per: Patient History/Exam Limitations: no limitations Onset/Duration Of Symptoms: Hrs Additional Complaint(s): Patient is an 83 y/o female with a PMHx of HTN, hypercholesterolemia, anxiety, and fractures who presents to the ED for evaluation of left lower anterior rib pain last night. [place] and [place]. Patient states the pain worsens during inspiration or coughing . Patient denies head injury, loss of consciousness, dizziness, headache, and shortness of breath. PCP: Dr. Abdullahi Martinez Past Medical History Reviewed: Historical Data, Nursing Documentation, Vital Signs Vital Signs: Last Vital Signs Temp 97.4 F L 08/19/18 13:57 Pulse 99 H 08/19/18 13:57 Resp 18 08/19/18 13:56 BP 150/72 08/19/18 13:57 Pulse Ox 98 08/19/18 13:57 Primary Care Provider: Abdullahi Martinez - Medical History PMH: Anxiety, Fractures, HTN, Hypercholesterolemia Denies: HIV, Chronic Kidney Disease - Surgical History Surgical History: Tonsillectomy - Family History Family History: States: Unknown Family Hx - Home Medications Home Medications: Ambulatory Orders Medication Instructions Recorded MetFORMIN ER [Glucophage XR] 500 mg PO BID 05/22/14 Enalapril Maleate [Vasotec] 10 mg PO DAILY 12/19/17 Meloxicam [Mobic] 7.5 mg PO DAILY 12/19/17 clonazePAM [Klonopin] 0.5 mg PO BID 12/19/17 traMADol [Ultram] 50 mg PO Q8 PRN 12/19/17 Lidocaine 5% [Lidoderm] 1 ea TD DAILY #10 patch 08/19/18 Naproxen [Naprosyn] 500 mg PO Q12H #20 tab 08/19/18 - Allergies Allergies/Adverse Reactions: Allergies Allergy/AdvReac Type Severity Reaction Status Date / Time Iodinated Contrast- Oral and Allergy RASH Verified 12/19/17 19:54 IV Dye Review of Systems ROS Statement: Except As Marked, All Systems Reviewed And Found Negative Cardiovascular: Positive for: Other (left lower anterior rib pain worse on inspiration and coughing) Respiratory: Negative for: Shortness of Breath Neurological: Negative for: Headache, Dizziness, Other (loss of consciousness) Physical Exam - Reviewed Nursing Documentation Reviewed: Yes Vital Signs Reviewed: Yes - Physical Exam Appears: Positive for: Non-toxic, No Acute Distress Head Exam: Positive for: ATRAUMATIC, NORMAL INSPECTION, NORMOCEPHALIC Skin: Positive for: Normal Color, Warm, DRY Eye Exam: Positive for: EOMI, Normal appearance, PERRL Neck: Positive for: Normal, Painless ROM Cardiovascular/Chest: Positive for: Regular Rate, Rhythm, Other (left lower anterior rib tenderness; no ecchymosis). Negative for: Murmur Respiratory: Positive for: Normal Breath Sounds (equal bilaterally). Negative for: Respiratory Distress Gastrointestinal/Abdominal: Positive for: Normal Exam, Soft. Negative for: Tenderness Back: Positive for: Normal Inspection. Negative for: L CVA Tenderness, R CVA Tenderness Extremity: Positive for: Normal ROM. Negative for: Pedal Edema, Deformity Neurological/Psych: Positive for: Alert, Oriented (x3) - ECG O2 Sat by Pulse Oximetry: 98 (RA) Pulse Ox Interpretation: Normal Medical Decision Making Medical Decision Making: Time: 141 Plan: r/o injured ribs and pneumothorax. Ribs and Chest LT [Rad] Scribe Attestation: Documented by Dae Guerra, acting as a scribe for Albert Nunn MD. Provider Scribe Attestation: All medical record entries made by the Scribe were at my direction and personally dictated by me. I have reviewed the chart and agree that the record accurately reflects my personal performance of the history, physical exam, medical decision making, and the department course for this patient. I have also personally directed, reviewed, and agree with the discharge instructions and disposition. Disposition - Clinical Impression Clinical Impression: Rib contusion - Patient ED Disposition Is Patient to be Admitted: No Counseled Patient/Family Regarding: Studies Performed, Diagnosis, Need For Followup, Rx Given - Disposition Referrals: [facility] [Outside] Disposition: Routine/Home Disposition Time: 15:05 Condition: FAIR Prescriptions: Lidocaine 5% [Lidoderm] 1 ea TD DAILY #10 patch Naproxen [Naprosyn] 500 mg PO Q12H #20 tab Instructions: Bruised Rib Forms: [employer] (French)
[2018-08-19 15:25] VITALS: BP 142/91; PULSE 86; RESP 16; TEMP 98.4
--- NOTE | 2018-08-19 15:33 | RAD ---
Date of service: 08/19/2018 PROCEDURE: Radiographs of the Chest and Left Ribs. HISTORY: trauma COMPARISON: None available. TECHNIQUE: Frontal radiograph of the chest and multiple oblique radiographs of the left ribs were obtained. 4 views obtained. FINDINGS: LEFT RIBS: No acute fracture seen through this deformity of a right 6 posterolateral rib changed in appearance with the 02/17/2018 study. LUNGS: The scarring suggested over the right upper lung zone along with the bullous emphysematous like changes right suprahilar region are similar. PLEURA: No pneumothorax or pleural fluid. CARDIOVASCULAR: Normal cardiac size. No pulmonary vascular congestion. There is presence of aortic atherosclerotic calcification on x-ray. OTHER FINDINGS: Right lateral chest wall and or axilla lymph node dissection clips in place similar. IMPRESSION: No acute rib fracture seen. Patient's current studies that of the left ribs. Similar posterior right rib deformity as detailed above. Unchanged with 2018. No pneumothorax. No interval cardiopulmonary pathology appreciated.
== END 2018-08-19 15:23 | disposition home or self-care (01) ==
LOC: H.ER 13:31
DX: S20.219A Contusion of unspecified front wall of thorax, initial encounter (principal); W19.XXXA Unspecified fall, initial encounter; Y92.89 Other specified places as the place of occurrence of the external cause

== ENCOUNTER 2018-08-27 14:19 | Emergency (ER) | payer MEDICARE, MEDICAID ==
[2018-08-27 14:19] VITALS: BMI 23.3
[2018-08-27 14:50] VITALS: O2SAT 98
[2018-08-27 16:36] LABS: BASO # 0.1 K/uL (0.0-0.2); BASO % 1.1 % (0.0-2.0); EOS # 0.3 K/uL (0.0-0.7); EOS % 4.1 % (0.0-4.0); HEMOGLOBIN 14.1 g/dL (12.0-16.0); LYMPH # 1.9 K/uL (1.0-4.3); LYMPH % 28.2 % (20.0-40.0); MEAN CELL VOLUME 83.7 fl (81.0-99.0); MEAN CORPUSCULAR HEMOGLOBIN 27.5 pg (27.0-31.0); MEAN CORPUSCULAR HGB CONC 32.9 g/dL (33.0-37.0); MEAN PLATELET VOLUME 7.8 fl (7.2-11.7); MONO # 0.5 K/uL (0.0-0.8); MONO % 7.8 % (0.0-10.0); NEUT % 58.8 % (50.0-75.0); NRBC % 0.1 % (0.0-0.0); RBC 5.12 Mil/uL (3.80-5.20); RED CELL DISTRIBUTION WIDTH 14.9 % (11.5-14.5); WHITE BLOOD COUNT 6.9 K/uL (4.8-10.8)
[2018-08-27 16:43] LABS: PARTIAL THROMBOPLASTIN TIME 27.9 Seconds (25.6-37.1)
[2018-08-27 16:45] LABS: ALB/GLOB RATIO 1.2 (1.0-2.1); ALBUMIN 4.9 g/dL (3.5-5.0); ALT/SGPT 43 U/L (9-52); AST/SGOT 46 U/L (14-36); BLOOD UREA NITROGEN 13 mg/dl (7-17); CALCIUM 9.2 mg/dL (8.4-10.2); GFR NON-AFRICAN AMERICAN > 60
[2018-08-27 16:58] LABS: INR 1.1; PROTHROMBIN TIME 12.2 Seconds (9.8-13.1)
--- NOTE | 2018-08-27 17:15 | ED PDOC ---
HPI: Trauma/Fall - HPI Time Seen by Provider: 08/27/18 14:52 Chief Complaint (Nursing): Rib Injury Chief Complaint (Provider): Left Flank Pain History Per: Patient History/Exam Limitations: no limitations Onset/Duration Of Symptoms: Days Additional Complaint(s): 83 year old female presents to ED with left flank pain sustained when she tripped and fell on August 19. She reports injuring left side of chest and was seen in this ED with normal Xrays and was prescribed Naproxen and Lidoderm patch but they have not provided any relief. Patient denies numbness, tingling, abdominal pain, nausea, vomiting, hemoptysis, trauma. PMD: Abdullahi Martinez Past Medical History Reviewed: Historical Data, Nursing Documentation, Vital Signs Vital Signs: Last Vital Signs Temp 98.4 F 08/27/18 14:49 Pulse 89 08/27/18 14:49 Resp BP 157/76 H 08/27/18 14:49 Pulse Ox 98 08/27/18 14:49 Primary Care Provider: Abdullahi Martinez - Medical History PMH: Anxiety, Fractures, HTN, Hypercholesterolemia Denies: HIV, Chronic Kidney Disease - Surgical History Surgical History: Tonsillectomy - Family History Family History: States: No Known Family Hx - Social History Current smoker - smoking cessation education provided: Yes Alcohol: None Drugs: Denies - Home Medications Home Medications: Ambulatory Orders Medication Instructions Recorded MetFORMIN ER [Glucophage XR] 500 mg PO BID 05/22/14 Enalapril Maleate [Vasotec] 10 mg PO DAILY 12/19/17 Meloxicam [Mobic] 7.5 mg PO DAILY 12/19/17 clonazePAM [Klonopin] 0.5 mg PO BID 12/19/17 traMADol [Ultram] 50 mg PO Q8 PRN 12/19/17 Lidocaine 5% [Lidoderm] 1 ea TD DAILY #10 patch 08/19/18 Naproxen [Naprosyn] 500 mg PO Q12H #20 tab 08/19/18 Tramadol HCl [Ultram] 50 mg PO BID PRN #6 tablet 08/27/18 - Allergies Allergies/Adverse Reactions: Allergies Allergy/AdvReac Type Severity Reaction Status Date / Time Iodinated Contrast- Oral and Allergy RASH Verified 12/19/17 19:54 IV Dye Review of Systems ROS Statement: Except As Marked, All Systems Reviewed And Found Negative Constitutional: Negative for: Other (no trauma) Cardiovascular: Positive for: Chest Pain (left sided) Gastrointestinal: Negative for: Nausea, Vomiting, Abdominal Pain, Other (no hemoptysis) Neurological: Negative for: Numbness (and tingling) Physical Exam - Reviewed Nursing Documentation Reviewed: Yes Vital Signs Reviewed: Yes - Physical Exam Appears: Negative for: No Acute Distress (mild painful distress) Skin: Positive for: Normal Color, Warm, Dry Cardiovascular/Chest: Negative for: Chest Non Tender (moderate left sided anterior and ancillary chest wall tenderness without ecchymosis or flail chest) Respiratory: Positive for: Normal Breath Sounds. Negative for: Respiratory Distress Gastrointestinal/Abdominal: Positive for: Tenderness (minimal LUQ). Negative for: Other (no ecchymosis) Back: Positive for: Normal Inspection. Negative for: L CVA Tenderness, R CVA Tenderness, Vertebral Tenderness Neurological/Psych: Positive for: Awake, Alert, Oriented (x3) - Laboratory Results Result Diagrams: 08/27/18 16:25 08/27/18 16:25 Lab Results: PT 12.2 Seconds (9.8-13.1) 08/27/18 16:25 INR 1.1 08/27/18 16:25 APTT 27.9 Seconds (25.6-37.1) 08/27/18 16:25 Troponin I < 0.0120 ng/mL (0.00-0.120) 08/27/18 16:25 Total Bilirubin 0.5 mg/dl (0.2-1.3) 08/27/18 16:25 AST 46 U/L (14-36) H D 08/27/18 16:25 ALT 43 U/L (9-52) 08/27/18 16:25 Alkaline Phosphatase 100 U/L (38-126) 08/27/18 16:25 Total Protein 8.9 G/DL (6.3-8.2) H 08/27/18 16:25 Albumin 4.9 g/dL (3.5-5.0) 08/27/18 16:25 Globulin 3.9 gm/dL (2.2-3.9) 08/27/18 16:25 Albumin/Globulin Ratio 1.2 (1.0-2.1) 08/27/18 16:25 - ECG ECG: Positive for: Interpreted By Me ECG Rhythm: Positive for: Sinus Rhythm. Negative for: ST/T Changes Rate: 72 O2 Sat by Pulse Oximetry: 98 (RA) Pulse Ox Interpretation: Normal Medical Decision Making Medical Decision Making: Time: 1647 Initial Impression: Initial Plan: Labs EKG Ativan 1mg PO Morphine 0.5mg IV Zofran 4mg IV CT chest/abd/pelvis w/o contrast [address] CT IMPRESSION: No evidence of acute intrathoracic or intra abdominal posttraumatic sequela. There is an small elliptical shaped nodular density which measures approximately 15.1 x 11 mm in the right upper lobe which has increased in size slightly from prior exam. This lesion measured approximately 10.6 x 6.7 mm on prior study. Lesion is of uncertain etiology however neoplasm would be considered somewhat less likely due to very slow growth although not be completely excluded. Consider follow-up of pulmonary consultation. There are areas of irregular linear and curvilinear scarring changes and dystrophic type calcifications in the right upper lobe some of which from the peripheral margins of this aforementioned nodule superolaterally along the anterolateral pleural surface with adjacent pleural thickening and head inferomedially from the lesion into the right suprahilar region. Mild passive/dependent type atelectasis and scar ring changes with adjacent pleural thickening both lower lung walters left greater than right. Minor scarring also seen in the right middle lobe and lingular regions. No evidence of pneumothorax or effusion. Hysterectomy. Questionable small hyperdense cyst or tiny microcalcifications lateral cortex midpole right kidney. Findings consistent with constipation. Diverticulosis without radiographic evidence of acute diverticulitis. [address] Thomas and informed of results. He states that he will relay results to Dr Martinez. Patient has scheduled appointment with Dr Martinez on 09/01 at 10 AM. Patient informed of all radiologic and labratory results and advised to follow up as previously scheduled. She reports pain has improved and was informed of prescription for Tramadol. Patient was also informed of risks of using opiod drugs. Advised to use it only for breakthrough pain if OTC meds do not work. Scribe Attestation: Documented by Mario Bateman, acting as a scribe for Chip Pantoja PA-C Provider Scribe Attestation: All medical record entries made by the Scribe were at my direction and personally dictated by me. I have reviewed the chart and agree that the record accurately reflects my personal performance of the history, physical exam, medical decision making, and the department course for this patient. I have also personally directed, reviewed, and agree with the discharge instructions and disposition. Disposition - Clinical Impression Clinical Impression: Pulmonary lesion of right side of chest, Chest wall contusion - Patient ED Disposition Is Patient to be Admitted: No - Disposition Referrals: [facility] [Outside] Disposition: Routine/Home Disposition Time: 17:40 Condition: STABLE Additional Instructions: FOLLOW UP WITH DR. MARTINEZ ON 09/01/2018 AT 10:40AM PREVIOUSLY SCHEDULED WITHOUT FAIL RETURN TO ED IMMEDIATELY IF SYMPTOMS WORSEN Prescriptions: Tramadol HCl [Ultram] 50 mg PO BID PRN #6 tablet PRN Reason: Pain Instructions: Pulmonary Nodule, Bruised Rib (DC) Forms: [facility] (Ukrainian), Opioid Discharge Information Print Language: IRISH
--- NOTE | 2018-08-27 17:18 | CT ---
Date of service: 08/27/2018 PROCEDURE: CT Chest, Abdomen and Pelvis without intravenous contrast HISTORY: Trauma; L sided chest pain COMPARISON: None available. TECHNIQUE: Contiguous helical/transaxial sections of the chest abdomen pelvis performed without oral or intravenous contrast material. Additional 2D sagittal and coronal reformats generated. Comparison made with CT scan of the abdomen and pelvis 12/19/2017. Comparison also made with CT chest 10/02/2009. Radiation dose: Total exam DLP = 356.29 mGy-cm. This CT exam was performed using one or more of the following dose reduction techniques: Automated exposure control, adjustment of the mA and/or kV according to patient size, and/or use of iterative reconstruction technique. FINDINGS: CT CHEST WITHOUT CONTRAST: LUNGS: There is an small elliptical shaped nodular density which measures approximately 15.1 x 11 mm in the right upper lobe which has increased in size slightly from prior exam. This lesion measured approximately 10.6 x 6.7 mm on prior study. Lesion is of uncertain etiology however neoplasm would be considered somewhat less likely due to very slow growth although not be completely excluded. Consider follow-up of pulmonary consultation. There are areas of irregular linear and curvilinear scarring changes and dystrophic type calcifications in the right upper lobe some of which from the peripheral margins of this aforementioned nodule superolaterally along the anterolateral pleural surface with adjacent pleural thickening and head inferomedially from the lesion into the right suprahilar region. Mild passive/dependent type atelectasis and scarring changes with adjacent pleural thickening both lower lung walters left greater than right. Minor scarring also seen in the right middle lobe and lingular regions. No evidence of pneumothorax or effusion. MEDIASTINUM: Heart size is within range of normal. No significant pericardial effusion. Ascending thoracic aorta measures approximately 3.5 cm and descending thoracic aorta measures approximately 2.8 cm. Pulmonary trunk measures approximately 2.8 cm. Calcified aortic atherosclerotic plaque present... There are a few small nonspecific mediastinal lymph nodes. Evaluation for hilar adenopathy somewhat limited due to the lack of circulating intravenous contrast material. Trachea midline and patent with no large central endoluminal lesions There is a small hiatal hernia. LYMPH NODES: As above PLEURA: No evidence of effusion or pneumothorax BONES: There are no acute compression fractures. Mild multilevel degenerative spondylosis of the thoracic spine. Ribs appear intact. OTHER FINDINGS: None. CT ABDOMEN AND PELVIS: LIVER: Liver exhibits relatively normal size measuring nearly 18 cm in CC dimension. No obvious hepatic mass collection or calcification. GALLBLADDER AND BILE DUCTS: Gallbladder physiologically distended. No evidence of intraluminal gallbladder calculi. PANCREAS: Unremarkable. No gross lesion or ductal dilatation. SPLEEN: Unremarkable. ADRENALS: No adrenal lesions. KIDNEYS AND URETERS: Kidneys demonstrate relatively symmetric size. There is a vague small rounded hyperdense focus lateral cortex midpole right kidney that could represent small hyperdense cyst or microcalcifications. No evidence of hydronephrosis. VASCULATURE: Aortic atherosclerotic calcification or mural plaque present. Unremarkable. No aortic aneurysm. BOWEL: The evaluation of the bowel is limited due to the lack of oral contrast material. The stomach is incompletely distended. Visualized loops of small bowel exhibit normal contour and caliber. No evidence acute mechanical small bowel obstruction. There is a large amount of stool seen throughout the colon consistent with fecal retention/constipation. Numerous colonic diverticula again seen arising from the sigmoid and distal descending colon. No definitive radiographic evidence of acute diverticulitis. APPENDIX: Normal appendix without evidence to suggest acute appendicitis. PERITONEUM: No gross free intraperitoneal air. No free or loculated fluid collections. LYMPH NODES: Unremarkable. No enlarged lymph nodes. BLADDER: Urinary bladder is physiologically distended. No evidence of intraluminal urinary bladder calculi. REPRODUCTIVE: Hysterectomy. BONES: Redemonstrated is chronic endplate deformities of the superior and inferior L4 endplate unchanged from prior study. Remaining vertebral bodies are intact. Redemonstrated are 2 in situ compression screws traversing the right and left femoral necks and heads respectively. OTHER FINDINGS: None. IMPRESSION: No evidence of acute intrathoracic or intra abdominal posttraumatic sequela. There is an small elliptical shaped nodular density which measures approximately 15.1 x 11 mm in the right upper lobe which has increased in size slightly from prior exam. This lesion measured approximately 10.6 x 6.7 mm on prior study. Lesion is of uncertain etiology however neoplasm would be considered somewhat less likely due to very slow growth although not be completely excluded. Consider follow-up of pulmonary consultation. There are areas of irregular linear and curvilinear scarring changes and dystrophic type calcifications in the right upper lobe some of which from the peripheral margins of this aforementioned nodule superolaterally along the anterolateral pleural surface with adjacent pleural thickening and head inferomedially from the lesion into the right suprahilar region. Mild passive/dependent type atelectasis and scarring changes with adjacent pleural thickening both lower lung walters left greater than right. Minor scarring also seen in the right middle lobe and lingular regions. No evidence of pneumothorax or effusion. Hysterectomy. Questionable small hyperdense cyst or tiny microcalcifications lateral cortex midpole right kidney. Findings consistent with constipation. Diverticulosis without radiographic evidence of acute diverticulitis.
[2018-08-27 18:29] VITALS: BP 144/83; RESP 18; TEMP 98.3
[2018-08-27 22:40] VITALS: PULSE 72
--- NOTE | 2018-08-28 11:56 | CARD ---
APPROVED REPORT Date of service: 08/27/2018 EKG Measurement Heart [id number] <Conclusion> Normal sinus rhythm Normal ECG
== END 2018-08-27 18:20 | disposition home or self-care (01) ==
LOC: H.ER 14:19
DX: J98.4 Other disorders of lung (principal); S20.219A Contusion of unspecified front wall of thorax, initial encounter; F17.200 Nicotine dependence, unspecified, uncomplicated; I10 Essential (primary) hypertension; Z79.84 Long term (current) use of oral hypoglycemic drugs; Z88.8 Allergy status to other drugs, medicaments and biological substances; Z90.710 Acquired absence of both cervix and uterus; E78.00 Pure hypercholesterolemia, unspecified; W01.0XXA Fall on same level from slipping, tripping and stumbling without subsequent striking against object, initial encounter
CPT/HCPCS: 71250; 74176; 80053; 84484; 85025; 85610; 85730; 86850; 86900; 93005; 96374; 96375; 99285; J2270; J2405